=== PATIENT | female | born 1945 | race Caucasian/White ===

== ENCOUNTER 2017-11-15 22:32 | Emergency (ER) | payer MEDICARE ==
[~2017-11-15] VITALS: Ht 162.6 cm; Wt 51.3 kg
[~2017-11-15 22:32] MED LIST: CARBIDOPA-LEVO1 EAC5 PO; LEVAQUIN500 MG PO; RYTARY ER PO; TIZANIDINE HCL4 MG PO; TRAMADOL HCL100 MG PO; ULTRAM50 MG PO; ZANTAC150 MG PO; ZOFRAN ODT4 MG
[2017-11-15] MEDS ORDERED: MORPHINE SULFATE 2 MG/ML SYR IV STA (22:37)
[2017-11-15] MEDS ORDERED: ONDANSETRON HCL INJ 2 MG/ML VIAL IV STA (22:37)
[2017-11-15 23:09] LABS: BASOPHILS # (AUTO) 0.1 (0.0-0.1); BASOPHILS % 0.7 % (0.0-1.0); EOSINOPHILS # (AUTO) 0.1 (0.0-0.4); EOSINOPHILS % 1.3 % (0.0-6.0); HEMATOCRIT 44.6 % (34.2-44.1); HEMOGLOBIN 14.7 g/dL (12.0-16.0); LYMPHOCYTES # (AUTO) 1.8 (1.0-3.2); LYMPHOCYTES % 18.5 % (18.0-39.1); MEAN CORPUSCULAR HEMOGLOBIN 30.2 pg (28-32); MEAN CORPUSCULAR VOLUME 91.6 fL (81-99); MONOCYTES # (AUTO) 0.5 (0.2-0.8); MONOCYTES % 5.7 % (4.4-11.3); NEUTROPHILS % 73.6 % (38.7-80.0); PLATELET COUNT 292 x10e3/uL (140-360); RED BLOOD COUNT 4.87 x10e6/uL (3.6-5.1); RED CELL DISTRIBUTION WIDTH 13.1 % (11.7-14.4)
[2017-11-15 23:26] LABS: ALBUMIN 4.2 g/dL (3.5-5.0); ALBUMIN/GLOBULIN RATIO 1.4 (0.8-2.0); ALKALINE PHOSPHATASE 107 IU/L (40-150); AMYLASE 81 U/L (25-125); ANION GAP 14.9 mmol/L (8-16); BLOOD UREA NITROGEN 21 mg/dL (7-26); BUN/CREATININE RATIO 23 (6-25); CARBON DIOXIDE 25 mmol/L (22-29); CHLORIDE 105 mmol/L (98-107); CREATININE, SERUM 0.93 mg/dL (0.57-1.11); EST GLOMERULAR FILTRATION RATE 60 ML/MIN (60-); GLUCOSE 112 mg/dL (74-118); LIPASE 64 U/L (8-78); POTASSIUM 3.9 mmol/L (3.5-5.1); SODIUM 141 mmol/L (136-145)
[2017-11-15 23:27] LABS: ALANINE AMINOTRANSFERASE < 6 IU/L (0-55)
[2017-11-15] MEDS ORDERED: IOPAMIDOL 370 MG/ML 200 ML INFUS..BTL INJ ONE (23:55)
[2017-11-15] MEDS ORDERED: SODIUM CHLORIDE 0.9% 50ML 50 ML ONE (23:55)
--- NOTE | 2017-11-16 00:48 | Diagnostic Imaging Report ---
EXAM: CT ABDOMEN AND PELVIS with IV CONTRAST DATE: 11/15/2017 10:35 PM Time stamp on Exam: 0023 hours INDICATION: Left-sided abdominal pain COMPARISON: None TECHNIQUE: The abdomen and pelvis were scanned using a multidetector helical scanner. Coronal and sagittal reformations were obtained. Dose modulation, iterative reconstruction, and/or weight based adjustment of the mA/kV was utilized to reduce the radiation dose to as low as reasonably achievable. Routine protocol performed. IV Contrast: 100 cc Isovue 370 Oral Contrast: Water FINDINGS: LOWER THORAX: No consolidations LIVER: No masses BILIARY: The gallbladder is unremarkable. No ductal dilation. SPLEEN: No masses PANCREAS: No masses ADRENALS: No nodules KIDNEYS: Symmetric perfusion. No enhancing masses. No hydronephrosis. GI TRACT: No distention, wall thickening or evidence of obstruction. Small hiatal hernia. Normal appendix. VESSELS: Unremarkable PERITONEUM/RETROPERITONEUM: No free air or fluid LYMPH NODES: No lymphadenopathy REPRODUCTIVE ORGANS: Uterus and ovaries are not visualized. BLADDER: Unremarkable SOFT TISSUES: Unremarkable BONES: No suspicious bone lesions. IMPRESSION: No acute findings in the CT of the abdomen or pelvis. Signed by: Dr. Michelle Neri M.D. on 11/16/2017 12:44 AM
[2017-11-16 01:38] LABS: BACTERIA,URINE FEW /HPF; BILIRUBIN,URINE NEGATIVE (NEGATIVE); CLARITY,URINE CLEAR (CLEAR); COLOR,URINE YELLOW (YELLOW); EPITHELIAL CELLS,URINE FEW /LPF; KETONES,URINE TRACE (NEGATIVE); LEUKOCYTE ESTERASE ,URINE TRACE (NEGATIVE); NITRITE,URINE NEGATIVE (NEGATIVE); PROTEIN,URINE DIPSTICK NEGATIVE (NEGATIVE); RBC,URINE 0-5 /HPF (0-5); URINE UROBILINOGEN 0.2 mg/dL (0.2 - 1)
[2017-11-16 01:48] VITALS: BP 162/101
== END 2017-11-16 02:12 | disposition home or self-care (01) ==
LOC: ER 22:32
DX: R10.32 Left lower quadrant pain (principal); N30.90 Cystitis, unspecified without hematuria; G20 Parkinson's disease; M54.9 Dorsalgia, unspecified; G89.29 Other chronic pain
CPT/HCPCS: 36415; 74177; 80053; 81001; 82150; 83690; 85025; 99284; J2270; J2405; Q9967

== ENCOUNTER → 2018-04-02 | Outpatient (CLI) | payer MEDICARE ==
--- NOTE | 2018-04-02 14:07 | Diagnostic Imaging Report ---
EXAMINATION: Renal ultrasound. CLINICAL HISTORY :Microscopic hematuria COMPARISON: <None available.> TECHNIQUE: Grayscale and color Doppler evaluation of the kidneys and bladder was performed in transverse and longitudinal planes. DISCUSSION: RIGHT KIDNEY: The right kidney measures 9.2 cm in length and shows normal echogenicity. No hydronephrosis, shadowing calculi or solid mass lesions. LEFT KIDNEY: The left kidney measures 9 cm in length and shows normal echogenicity. No hydronephrosis, shadowing calculi or solid mass lesions. BLADDER: Unremarkable. IMPRESSION: Normal renal sonogram Signed by: Dr. Roscoe Bell M.D. on 04/02/2018 2:03 PM
== END ==
LOC: US 12:53
PROVIDERS: ATTEND Urology
DX: R31.29 Other microscopic hematuria (principal); N39.0 Urinary tract infection, site not specified
CPT/HCPCS: 76770

== ENCOUNTER → 2018-06-08 | Outpatient (CLI) | payer MEDICARE ==
--- NOTE | 2018-06-08 17:31 | Diagnostic Imaging Report ---
EXAMINATION: CHEST 2 VIEWS INDICATION: ^[id number] ^1700 ^COUGH COMPARISON: Abdomen and pelvis CT dated 11/16/2017 FINDINGS: AP and lateral views TUBES and LINES: None. LUNGS/PLEURA: The lungs are clear. No pleural effusion or pneumothorax. HEART AND MEDIASTINUM: The cardiomediastinal silhouette is unremarkable. BONES AND SOFT TISSUES: No acute osseous lesion. Soft tissues are unremarkable. UPPER ABDOMEN: No free air under the diaphragm. IMPRESSION: No acute thoracic abnormality. Signed by: Barry Guerra MD on 06/08/2018 5:28 PM
== END ==
LOC: RAD 16:06
PROVIDERS: ATTEND Internal Medicine
DX: R05 Cough (principal)
CPT/HCPCS: 71046

== ENCOUNTER 2019-01-02 19:52 | Emergency (ER) | payer MEDICARE ==
[~2019-01-02] VITALS: Ht 162.6 cm; Wt 51.3 kg
--- OUTSIDE RECORDS SUMMARY | 2019-01-02 19:56 | XMS REPORT ---
Author Author [facility] Address Unknown Phone Unavailable Care Team Providers Care Gag Writer Name Role Phone LEXI BARAJAS Unavailable Unavailable SELENE WOOTEN Unavailable Unavailable Jose Carlos NAM Unavailable Unavailable Payers Payer Name Policy Type Policy Number Effective Date Expiration Date Problems This patient has no known problems. Allergies, Adverse Reactions, Alerts Allergy Name Allergy Type Status Severity Reaction(s) Onset Date Inactive Date Treating Clinician Comments Sulfa (Sulfonamide Antibiotics) DA Active U 2018-03-06 00:00:00 No Known Contrast Allergies DA Active U 2005-01-19 00:00:00 No Known Drug Allergies DA Active U 2005-01-19 00:00:00 No Known Food Allergies DA Active U 2005-01-19 00:00:00 Medications This patient has no known medications. Results Test Description Test Time Test Comments Text Results Atomic Results Result Comments CHEST 2 VIEWS 2018-06-08 17:27:00 [place] [address] Patient Name: MANJU PEARSON MR #: [id number] : 1945 Age/Sex: 72/F Req #: [id number] Adm Physician: Ordered by: ELXI BARAJAS MD Report #: [id number] Location: [facility] Room/Bed: Procedure: [id number] DX/CHEST 2 VIEWS Exam Date: 06/08/18 Exam Time: 1700 REPORT STATUS: Signed EXAMINATION: CHEST 2 VIEWS INDICATION: [id number] 1700 COUGH COMPARISON: Abdomen and pelvis CT dated 11/16/2017 FINDINGS: AP and lateral views TUBES and LINES: None. LUNGS/PLEURA: The lungs are clear. No pleural effusion or pneumothorax. HEART AND MEDIASTINUM: The cardiomediastinal silhouette is unremarkable. BONES AND SOFT TISSUES: No acute osseous lesion. Soft tissues are unremarkable. UPPER ABDOMEN: No free air under the diaphragm. IMPRESSION: No acute thoracic abnormality. Signed by: Barry Guerra MD on 06/08/2018 5:28 PM Dictated By: DILSHAD GUERRA MD 27 Transcribed By: SAVITA on 06/08/181727 COPY TO: LEXI BARAJAS MD RENAL RETROPERITONEAL COMP 2018-04-02 14:02:00 [place] [address] Patient Name: MANJU PEARSON MR #: [id number] : 1945 Age/Sex: 72/F Req #: [id number] Adm Physician: Ordered by: SELENE WOOTEN MD Report #: [id number] Location: Room/Bed: Procedure: [id number] US/US RENAL RETROPERITONEAL COMP Exam Date: 04/02/18 Exam Time: 1337 REPORT STATUS: Signed EXAMINATION: Renal ultrasound. CLINICAL HISTORY :Microscopic hematuria COMPARISON: <None available.> TECHNIQUE: Grayscale and color Doppler evaluation of the kidneys and bladder was performed in transverse and longitudinal planes. DISCUSSION: RIGHT KIDNEY: The right kidney measures 9.2 cm in length and shows normal echogenicity. No hydronephrosis, shadowing calculi or solid mass lesions. LEFT KIDNEY: The left kidney measures 9 cm in length and shows normal echogenicity. No hydronephrosis, shadowing calculi or solid mass lesions. BLADDER: Unremarkable. IMPRESSION: Normal renal sonogram Signed by: Dr. Yuliya Salmeron M.D. on 04/02/2018 2:03 PM Dictated By: YULIYA SALMERON MD 02 Transcribed By: SAVITA on 04/02/181402 COPY TO: SELENE WOOTEN MD CT ABDOMEN/PELVIS W 2017-11-16 00:37:00 [place] [address] Patient Name: MANJU PEARSON MR #: [id number] : 1945 Age/Sex: 71/F Req #: [id number] Adm Physician: Ordered by: ASHLEY NAM MD Report #: [id number] Location: ER Room/Bed: Procedure: [id number] CT/CT ABDOMEN/PELVIS W Exam Date: Exam Time: REPORT STATUS: Signed EXAM: CT ABDOMEN AND PELVIS with IV CONTRAST DATE: 11/15/2017 10:35 PM Time stamp on Exam: 0023 hours INDICATION: Left-sided abdominal pain COMPARISON: None TECHNIQUE: The abdomen and pelvis were scanned using a multidetector helical scanner. Coronal and sagittal reformations were obtained. Dose modulation, iterative reconstruction, and/or weight based adjustment of the mA/kV was utilized to reduce the radiation dose to as low as reasonably achievable. Routine protocol performed. IV Contrast: 100 cc Isovue 370 Oral Contrast: Water FINDINGS: LOWER THORAX: No consolidations LIVER: No masses BILIARY: The gallbladder is unremarkable. No ductal dilation. SPLEEN: No masses PANCREAS: No masses ADRENALS: No nodules KIDNEYS: Symmetric perfusion. No enhancing masses. No hydronephrosis. GI T RACT: No distention, wall thickening or evidence of obstruction. Small hiatal hernia. Normal appendix. VESSELS: Unremarkable PERITONEUM/RETROPERITONEUM: No free air or fluid LYMPH NODES: No lym phadenopathy REPRODUCTIVE ORGANS: Uterus and ovaries are not visualized. BLADDER: Unremarkable SOFT TISSUES: Unremarkable BONES: No suspicious bone lesions. IMPRESSION: No acute findings in the CT of the abdomen or pelvis. Signed by: Dr. Abby Neri M.D. on 11/16/2017 12:44 AM Dictated By: ABBY NERI MD Transcribed By: SAVITA on 11/16/1743 COPY TO: ASHLEY NAM MD
--- NOTE | 2019-01-02 20:22 | NUR ---
bladder scan performed: 122, 120, 135
[2019-01-02] MEDS ORDERED: ONDANSETRON HCL INJ 2MG/ML 2ML 2 MG/ML VIAL IV STA (20:33)
[2019-01-02] MEDS ORDERED: DIATRIZOATE MEGL/DIATRIZOA SOD 30 ML BTL PO ONE (20:39)
[2019-01-02] MEDS ORDERED: SODIUM CHLORIDE 0.9% 1000ML 1,000 ML IV ONE (20:45)
[2019-01-02] MEDS ORDERED: HYDROMORPHONE 1MG/1ML INJ IV ONE (20:45)
[2019-01-02 20:51] LABS: BASOPHILS # (AUTO) 0.1 (0.0-0.1); BASOPHILS % 0.9 % (0.0-1.0); EOSINOPHILS # (AUTO) 0.1 (0.0-0.4); EOSINOPHILS % 1.9 % (0.0-6.0); HEMATOCRIT 40.9 % (34.2-44.1); HEMOGLOBIN 13.7 g/dL (12.0-16.0); LYMPHOCYTES % 14.8 % (18.0-39.1); MEAN CORPUSCULAR HEMOGLOBIN 30.5 pg (28-32); MEAN CORPUSCULAR HGB CONC 33.5 g/dL (31-35); MEAN CORPUSCULAR VOLUME 91.1 fL (81-99); MONOCYTES # (AUTO) 0.5 (0.2-0.8); MONOCYTES % 6.4 % (4.4-11.3); NEUTROPHILS # (AUTO) 5.3 (2.1-6.9); NEUTROPHILS % 75.6 % (38.7-80.0); PLATELET COUNT 221 x10e3/uL (140-360); RED BLOOD COUNT 4.49 x10e6/uL (3.6-5.1); RED CELL DISTRIBUTION WIDTH 12.5 % (11.7-14.4)
[2019-01-02 20:58] LABS: BILIRUBIN,URINE NEGATIVE (NEGATIVE); CLARITY,URINE CLEAR (CLEAR); COLOR,URINE YELLOW (YELLOW); KETONES,URINE TRACE (NEGATIVE); LEUKOCYTE ESTERASE ,URINE NEGATIVE (NEGATIVE); NITRITE,URINE NEGATIVE (NEGATIVE); PROTEIN,URINE DIPSTICK NEGATIVE (NEGATIVE); URINE UROBILINOGEN 0.2 mg/dL (0.2 - 1)
[2019-01-02 21:11] LABS: ALBUMIN 3.8 g/dL (3.5-5.0); ALBUMIN/GLOBULIN RATIO 1.5 (0.8-2.0); ALKALINE PHOSPHATASE 79 IU/L (40-150); ANION GAP 13.6 mmol/L (8-16); BLOOD UREA NITROGEN 21 mg/dL (7-26); BUN/CREATININE RATIO 23 (6-25); CALCIUM 9.6 mg/dL (8.4-10.2); CARBON DIOXIDE 23 mmol/L (22-29); CHLORIDE 106 mmol/L (98-107); CREATININE, SERUM 0.91 mg/dL (0.57-1.11); EST GLOMERULAR FILTRATION RATE > 60 ML/MIN (60-); GLUCOSE 109 mg/dL (74-118); POTASSIUM 3.6 mmol/L (3.5-5.1); SODIUM 139 mmol/L (136-145)
[2019-01-02 21:12] LABS: BACTERIA,URINE RARE /HPF; EPITHELIAL CELLS,URINE FEW /LPF; RBC,URINE 0-5 /HPF (0-5); WBC,URINE (MAN) 0-5 /HPF (0-5)
[2019-01-02 21:14] LABS: ALANINE AMINOTRANSFERASE < 6 IU/L (0-55)
[2019-01-02 21:37] LABS: AMYLASE 44 U/L (25-125); LIPASE 11 U/L (8-78)
[2019-01-02] MEDS ORDERED: IOPAMIDOL 370 MG/ML 200 ML INFUS..BTL INJ ONE (21:53)
[2019-01-02] MEDS ORDERED: SODIUM CHLORIDE 0.9% 50ML 50 ML ONE (21:53)
--- NOTE | 2019-01-02 22:51 | Diagnostic Imaging Report ---
EXAM: CT Abdomen and Pelvis WITH contrast INDICATION: ^llq pain ^Y COMPARISON: CT dated 11/16/2017 TECHNIQUE: Abdomen and pelvis were scanned utilizing a multidetector helical scanner from the lung base to the pubic symphysis after administration of IV contrast. Coronal and sagittal reformations were obtained. Dose modulation, iterative reconstruction, and/or weight based adjustment of the mA/kV was utilized to reduce the radiation dose to as low as reasonably achievable. Routine protocol was performed. Scan was performed when during portal venous phase. IV CONTRAST: 100 mL of Isovue-370 ORAL CONTRAST: Gastroview COMPLICATIONS: None RADIATION DOSE: Total DLP: 273 mGy*cm Estimated effective dose: (DLP x 0.015 x size factor) mSv CTDIvol has been reviewed. It is below the limits set by the Radiation Protocol Committee (RPC). FINDINGS: LINES and TUBES: None. LOWER THORAX: Dependent atelectasis. HEPATOBILIARY: No focal hepatic lesions. No biliary ductal dilation. GALLBLADDER: No radio-opaque stones or sludge. No wall thickening. SPLEEN: No splenomegaly. PANCREAS: No focal masses or ductal dilatation. ADRENALS: No adrenal nodules KIDNEYS/URETERS: Kidneys enhance symmetrically. No hydronephrosis. No cystic or solid mass lesions. No stones. GI TRACT: No abnormal distention, wall thickening, or evidence of bowel obstruction. Appendix is normal. PELVIC ORGANS/BLADDER: Hysterectomy. Bladder is unremarkable. LYMPH NODES: No lymphadenopathy. VESSELS: Unremarkable. PERITONEUM / RETROPERITONEUM: No free air or fluid. BONES: Unremarkable. SOFT TISSUES: Unremarkable. IMPRESSION: 1. No acute inflammatory process in the abdomen/pelvis to explain patient's symptoms. Signed by: Dr. David Moran MD on 01/02/2019 10:48 PM
== END 2019-01-02 23:16 | disposition home or self-care (01) ==
LOC: ER 19:52
DX: R10.32 Left lower quadrant pain (principal); Z87.442 Personal history of urinary calculi; Z87.440 Personal history of urinary (tract) infections; M19.90 Unspecified osteoarthritis, unspecified site; G20 Parkinson's disease; Z82.49 Family history of ischemic heart disease and other diseases of the circulatory system
CPT/HCPCS: 36415; 74177; 80053; 81001; 82150; 83690; 85025; 99284; J1170; J2405; J7030; Q9967

== ENCOUNTER 2019-03-06 02:13 | Observation (INO) | payer MEDICARE ==
[~2019-03-06] VITALS: Ht 162.6 cm; Wt 50.5 kg
[2019-03-06] MEDS ORDERED: SODIUM CHLORIDE 0.9% 500ML 500 ML IV ONE (02:45)
[2019-03-06 03:06] LABS: BASOPHILS # (AUTO) 0.1 (0.0-0.1); BASOPHILS % 0.7 % (0.0-1.0); EOSINOPHILS # (AUTO) 0.3 (0.0-0.4); HEMATOCRIT 39.7 % (34.2-44.1); HEMOGLOBIN 13.2 g/dL (12.0-16.0); LYMPHOCYTES # (AUTO) 1.4 (1.0-3.2); LYMPHOCYTES % 20.1 % (18.0-39.1); MEAN CORPUSCULAR HEMOGLOBIN 29.9 pg (28-32); MEAN CORPUSCULAR HGB CONC 33.2 g/dL (31-35); MEAN CORPUSCULAR VOLUME 89.8 fL (81-99); MONOCYTES # (AUTO) 0.6 (0.2-0.8); MONOCYTES % 7.8 % (4.4-11.3); NEUTROPHILS # (AUTO) 4.7 (2.1-6.9); NEUTROPHILS % 66.8 % (38.7-80.0); PLATELET COUNT 229 x10e3/uL (140-360); RED BLOOD COUNT 4.42 x10e6/uL (3.6-5.1); RED CELL DISTRIBUTION WIDTH 12.8 % (11.7-14.4)
[2019-03-06 03:30] LABS: BILIRUBIN,URINE NEGATIVE (NEGATIVE); CLARITY,URINE SL CLOUDY (CLEAR); COLOR,URINE YELLOW (YELLOW); KETONES,URINE NEGATIVE (NEGATIVE); LEUKOCYTE ESTERASE ,URINE NEGATIVE (NEGATIVE); NITRITE,URINE NEGATIVE (NEGATIVE); PROTEIN,URINE DIPSTICK NEGATIVE (NEGATIVE); URINE UROBILINOGEN 0.2 mg/dL (0.2 - 1)
[2019-03-06 03:33] LABS: INR 0.97; PROTHROMBIN TIME 13.4 seconds (11.9-14.5)
[2019-03-06 03:34] LABS: PARTIAL THROMBOPLASTIN TIME 25.3 seconds (23.8-35.5)
[2019-03-06 03:37] LABS: ALANINE AMINOTRANSFERASE < 6 IU/L (0-55); ALBUMIN 3.5 g/dL (3.5-5.0); ALBUMIN/GLOBULIN RATIO 1.6 (0.8-2.0); ALKALINE PHOSPHATASE 80 IU/L (40-150); ANION GAP 12.7 mmol/L (8-16); BLOOD UREA NITROGEN 27 mg/dL (7-26); BUN/CREATININE RATIO 29 (6-25); CALCIUM 9.1 mg/dL (8.4-10.2); CARBON DIOXIDE 23 mmol/L (22-29); CHLORIDE 108 mmol/L (98-107); CREATINE KINASE 66 IU/L (29-168); CREATININE, SERUM 0.94 mg/dL (0.57-1.11); EST GLOMERULAR FILTRATION RATE 59 ML/MIN (60-); GLUCOSE 99 mg/dL (74-118); POTASSIUM 3.7 mmol/L (3.5-5.1); SODIUM 140 mmol/L (136-145)
--- NOTE | 2019-03-06 03:52 | Diagnostic Imaging Report ---
EXAMINATION: Head CT without contrast. HISTORY:Syncope, fall. COMPARISON:Report of CT brain from 05/25/2012, prior images not available for comparison at the time of interpretation. TECHNIQUE: Multidetector axial images were obtained from the foramen magnum to the vertex without contrast. The images were reconstructed using brain and bone algorithms. Thin section brain images were reformatted into coronal and sagittal planes. Dose modulation, iterative reconstruction, and/or weight based adjustment of the mA/kV was utilized to reduce the radiation dose to as low as reasonably achievable. Intravenous contrast: None IMAGE QUALITY: Suboptimal evaluation particularly of the skull base and posterior fossa structures due to streak artifacts. FINDINGS: Skull/scalp: No lytic or blastic. lesions. No surgical changes. Parenchyma: Nonspecific few, scattered supratentorial white matter hypodensity are likely related to small vessel ischemic changes. No acute hemorrhage, mass or acute major vascular territorial infarct. Arteries: No density suggestive of thrombosis. Dural sinuses: No abnormal density suggestive of thrombosis. Ventricles: No hydrocephalus or displacement. Extra-axial spaces: No abnormal density. Brain volume: Normal for age. Craniocervical junction: No mass, Chiari malformation, or basilar invagination. Sella: No mass. Paranasal/mastoid sinuses: Under pneumatization and partial sclerosis of left mastoid air cells possibly related to chronic inflammatory process. Mild mucosal thickening in bilateral ethmoid sinuses. IMPRESSION: No acute intracranial abnormality. Mild supratentorial white matter microvascular ischemic changes. Signed by: Dr. Ro Munoz M.D. on 03/06/2019 3:48 AM
[2019-03-06 03:57] LABS: B-TYPE NATRIURETIC PEPTIDE2 149.4 pg/mL (0-100)
--- NOTE | 2019-03-06 03:57 | Diagnostic Imaging Report ---
History: Syncope, fall. Comparison studies: None Technique: Axial images were obtained through the cervical region.. Coronal and sagittal images reconstructed from the axial data. Dose modulation, iterative reconstruction, and/or weight based adjustment of the mA/kV was utilized to reduce the radiation dose to as low as reasonably achievable. Intravenous contrast: None Findings: Fractures: None. Soft tissue injuries: None. Atlantoaxial articulation: Intact. Alignment: Loss of normal cervical lordosis is either positional or due to muscle spasm. Mild levoscoliosis of the cervical spine. Cervicomedullary junction: No abnormalities. The foramen magnum is patent. Soft tissues: No abnormalities. Vertebrae: No fractures, infection or neoplasm. Degenerative changes: C2-C3: Mild right foraminal stenosis due to facet and uncovertebral arthrosis. C3-C4: Severe right foraminal stenosis due to facet and uncovertebral arthrosis. C4-C5: Severe right foraminal stenosis due to facet and uncovertebral arthrosis. C5-C6: Mild bilateral foraminal stenosis due to facet and uncovertebral arthrosis. C6-C7: Severe right and moderate left foraminal stenosis due to facet and uncovertebral arthrosis. Incidental finding: Partial opacification of right mastoid air cells. IMPRESSION: 1. No acute cervical spine fracture or dislocation. Loss of normal cervical lordosis is either positional or due to muscle spasm. 2. Ligament, spinal cord and or vascular abnormalities cannot be excluded on the basis of this examination. 3. Cervical spondylosis as detailed above. Signed by: Dr. Ro Munoz M.D. on 03/06/2019 3:54 AM
[2019-03-06] MEDS ORDERED: SODIUM CHLORIDE 0.9% 1000ML 1,000 ML IV ONE (04:00)
[2019-03-06] MEDS ORDERED: ONDANSETRON HCL INJ 2MG/ML 2ML 2 MG/ML VIAL IV PRN (04:00)
--- NOTE | 2019-03-06 04:04 | Diagnostic Imaging Report ---
EXAMINATION: CHEST SINGLE (PORTABLE) INDICATION: ^syncope ^[id number] ^0236 COMPARISON: 06/08/2018 FINDINGS: AP view TUBES and LINES: None. LUNGS: Patient's chin obscures lung apices. Lungs are well inflated. There is no evidence of pneumonia or pulmonary edema. PLEURA: No significant pleural effusion or pneumothorax. HEART AND MEDIASTINUM: The cardiomediastinal silhouette is unremarkable. BONES AND SOFT TISSUES: No acute osseous lesion. Soft tissues are unremarkable. UPPER ABDOMEN: No free air under the diaphragm. IMPRESSION: No acute thoracic abnormality. Signed by: Dr. David Moran MD on 03/06/2019 4:01 AM
--- NOTE | 2019-03-06 04:05 | Diagnostic Imaging Report ---
PELVIS AP 1-2 VIEWS - 1 view HISTORY: Pain COMPARISON: None available. FINDINGS: See impression. IMPRESSION: Limited by slight rotation. No definite evidence of acute displaced fracture or dislocation. Signed by: Dr. David Moran MD on 03/06/2019 4:02 AM
[2019-03-06 04:09] LABS: AMORPHOUS SEDIMENT,URINE MANY (FEW); BACTERIA,URINE MODERATE /HPF; EPITHELIAL CELLS,URINE FEW /LPF; RBC,URINE 0-5 /HPF (0-5); WBC,URINE (MAN) 0-5 /HPF (0-5)
[2019-03-06] MEDS: ACETAMINOPHEN/CODEINE 300MG - 30MG TAB PO PRN ×2 (05:30→20:31)
[2019-03-06] MEDS ORDERED: DICYCLOMINE HCL 10 MG CAP PO ONE (05:30)
[2019-03-06 07:08] LABS: CREATINE KINASE 45 IU/L (29-168)
--- NOTE | 2019-03-06 07:27 | NUR ---
report given to benedict walker
[2019-03-06 08:00] VITALS: BP 144/89
--- NOTE | 2019-03-06 08:00 | NUR ---
Rec'd patient to Room 187. Sacral stage 2 noted; VSS, no acute distress on room air. Purewick placed. Concerns voiced by patient and spouse regarding the billing for the admission. Requesting to discharge home. machine umbrella tipper and Dry Food Products Mixer to bedside; Ning Osuna aware. Patient and spouse agreeable to stay and speak with Ning Osuna when she rounds after conversation with machine umbrella tipper and Dry Food [employer] Mixer.
--- NOTE | 2019-03-06 08:52 | NUR ---
CALLED INTO ROOM, PT AND UPSET BECAUSE OF OBS STATUS, THEIR FRIEND WAS TOLD THEY HAD TO PAY $20K FOR THEIR OBS STAY AND THEY STATE THEY CANNOT AFFORD THAT. LOOKED AT INSURANCE THEY HAVE MEDICARE A AND B AND A SECONDARY AARP. THEY SHOULD BE COVERED. ALSO GAVE A SENIOR RESOURCE PACKET OF INFORMATION FOR ASSISTANCE IN THE COMMUNITY, ALSO EDUCATED THAT EVERY POLICY IS DIFFERENT AND I CANNOT EXPLAIN WHY THEIR FRIEND HAD TO PAY SO MUCH BUT THAT TYPICALLY A SECONDAY WILL PHARMACY TECH CO PAY AND THE PART B WILL PHARMACY TECH A PORTION OF THE OBS PORTION. NURSE ADVISED CALLED JEWEL GRINDER WHOM IS ON WAY AND WILL REVIEW CASE TO DETERMINE IF DISCHARGE CAN BE COMPLETED.
[2019-03-06 09:11] VITALS: BP 144/89
[2019-03-06 09:16] VITALS: BP 144/89
[2019-03-06] MEDS ORDERED: ACETAMINOPHEN 325 MG TAB PO PRN (09:30)
[2019-03-06] MEDS ORDERED: HYDRALAZINE HCL 20 MG/ML VIAL IV PRN (09:30)
--- NOTE | 2019-03-06 09:53 | NUR ---
Consult called to Dr Carlos, neurology, per Ning Osuna order. Left message. Awaiting callback.
[2019-03-06] MEDS: CEFTRIAXONE SOD 1 GM/NS 50 ML 50 ML IV SCH (09:56)
[2019-03-06 10:02] LABS: CHOL/HDL RATIO 3.4 (3.0-3.6)
[2019-03-06 12:39] LABS: CREATINE KINASE MB 2.2 ng/mL (0-5.0)
[2019-03-06 14:00] VITALS: BP 102/87
[2019-03-06] MEDS: FAMOTIDINE 20 MG TAB PO SCH (17:12)
--- NOTE | 2019-03-06 17:22 | NUR ---
Patient ambulated to restroom with a walker.
[2019-03-06 18:13] LABS: CREATINE KINASE 223 IU/L (29-168)
--- NOTE | 2019-03-06 18:37 | Consultation ---
DATE OF CONSULTATION: Pulmonary Critical Care Consultation CHIEF COMPLAINT: Syncope. HISTORY OF PRESENT ILLNESS: The patient is a 73-year-old woman. She has a history of Parkinson disease. She is having her medications adjusted by Dr. Landaverde of Neurology as an outpatient. She denies any prior cardiac history. When she was walking to the kitchen, she passed out and was difficult to arouse for about 10 minutes. When she came to, she was not postictal. There was no reported grand mal seizure activity. The patient denied any chest pain or headache. PAST SURGICAL HISTORY: 1. Status post hysterectomy. 2. Status post back surgery. PAST MEDICAL HISTORY: Parkinson disease. FAMILY HISTORY: Diabetes and cancer. SOCIAL HISTORY: The patient is not an active smoker or drinker. ALLERGIES: THERE ARE NO KNOWN DRUG ALLERGIES. REVIEW OF SYSTEMS: There is no fever. She has no headache. She is not having any neck pain. There is no sore throat. She does not have any chest pain. She does not complain of trouble breathing or cough. She has no abdominal pain. She has no nausea or vomiting. She has no leg edema. PHYSICAL EXAMINATION: VITAL SIGNS: The patient is afebrile. The blood pressure is 144/90 and the pulse is 63. The saturation is 95%. HEENT: Shows no facial swelling or erythema. CARDIAC: Reveals a regular rate and rhythm with normal S1 and S2. There are no murmurs or rubs. LUNGS: Auscultation of lungs reveals rhonchorous breath sounds bilaterally. There is no wheezing. ABDOMEN: Soft and nontender. There is no rebound or guarding. EXTREMITIES: Shows no leg edema or calf tenderness. There is no cyanosis or clubbing. SKIN: Shows no rashes. NEUROLOGICAL: Shows tremor consistent with Parkinson disease and some increased rigidity. LABORATORY DATA: CBC is within normal limits. Glucose is normal. Troponin I is normal. The BUN to creatinine ratio is normal and electrolytes were normal. RADIOGRAPHIC DATA: CT scan of the brain shows no acute findings. CT scan of the neck shows no acute fracture. There is some cervical spondylosis. Chest x-ray shows no acute thoracic abnormality. IMPRESSION: 1. Syncope of unclear cause. 2. Parkinson disease. PLAN: 1. Check echocardiogram and carotid duplex. 2. Orthostatic vital signs. 3. Neurology consultation to review Parkinson's medications. MD SOFI Wood/DIANE /[id number]
[2019-03-06 20:00] VITALS: BP 146/85
[2019-03-06 23:37] VITALS: BP 160/82
[2019-03-07] MEDS: ACETAMINOPHEN/CODEINE 300MG - 30MG TAB PO PRN (02:45)
[2019-03-07 03:46] VITALS: BP 156/86
[2019-03-07 05:13] LABS: BASOPHILS % 0.4 % (0.0-1.0); EOSINOPHILS # (AUTO) 0.1 (0.0-0.4); EOSINOPHILS % 1.3 % (0.0-6.0); HEMATOCRIT 38.5 % (34.2-44.1); HEMOGLOBIN 12.4 g/dL (12.0-16.0); LYMPHOCYTES # (AUTO) 1.3 (1.0-3.2); LYMPHOCYTES % 13.8 % (18.0-39.1); MEAN CORPUSCULAR HEMOGLOBIN 29.5 pg (28-32); MEAN CORPUSCULAR HGB CONC 32.2 g/dL (31-35); MEAN CORPUSCULAR VOLUME 91.4 fL (81-99); MONOCYTES # (AUTO) 0.6 (0.2-0.8); MONOCYTES % 6.7 % (4.4-11.3); NEUTROPHILS # (AUTO) 7.2 (2.1-6.9); NEUTROPHILS % 77.3 % (38.7-80.0); PLATELET COUNT 204 x10e3/uL (140-360); RED BLOOD COUNT 4.21 x10e6/uL (3.6-5.1); RED CELL DISTRIBUTION WIDTH 12.9 % (11.7-14.4)
[2019-03-07 05:40] LABS: ALANINE AMINOTRANSFERASE < 6 IU/L (0-55); ALBUMIN 3.3 g/dL (3.5-5.0); ALBUMIN/GLOBULIN RATIO 1.7 (0.8-2.0); ALKALINE PHOSPHATASE 71 IU/L (40-150); ANION GAP 10.6 mmol/L (8-16); BLOOD UREA NITROGEN 19 mg/dL (7-26); BUN/CREATININE RATIO 24 (6-25); CALCIUM 8.6 mg/dL (8.4-10.2); CARBON DIOXIDE 24 mmol/L (22-29); CHLORIDE 110 mmol/L (98-107); EST GLOMERULAR FILTRATION RATE > 60 ML/MIN (60-); GLUCOSE 98 mg/dL (74-118); POTASSIUM 3.6 mmol/L (3.5-5.1); SODIUM 141 mmol/L (136-145)
[2019-03-07] MEDS: FAMOTIDINE 20 MG TAB PO SCH (07:30)
[2019-03-07 07:39] VITALS: BP 146/80
[2019-03-07 08:15] VITALS: BP 146/80
[2019-03-07] MEDS ORDERED: RYTARY PO SCH ×2 (09:00→13:00)
[2019-03-07] MEDS: CEFTRIAXONE SOD 1 GM/NS 50 ML 50 ML IV SCH (09:00)
[2019-03-07] MEDS ORDERED: DICYCLOMINE HCL20 MG PO (09:31)
[2019-03-07 11:41] VITALS: BP 101/63
[2019-03-07] MEDS ORDERED: HOME MEDICATION--PATIENTS OWN PO SCH (12:00)
--- NOTE | 2019-03-07 12:10 | NUR ---
Visit made by the Spiritual Care Department Pastoral Visitor, Jes Díaz. Pt sleeping soundly and no family present. Pastoral Visitor left a card describing availability of electronic imaging system operator and instructions on how to contact a electronic imaging system operator. ROSEMARY BARCENAS Supervisor [employer]ing And [employer]pering Spiritual Care Department O: [phone] Pager: [phone] ([phone] number calling from)
[2019-03-07] MEDS ORDERED: CEFDINIR300 MG PO (12:49)
--- NOTE | 2019-03-07 12:52 | NUR ---
Spoke with JOHNATHON Barclay. Received order to set up home health for PT. CM spoke with pt and her at bedside. Pt stated that she previously had home health, but does not want it at this time. at bedside agrees and declines need at this time.
--- NOTE | 2019-03-07 12:56 | Progress Note ---
DATE: SUBJECTIVE: The patient feels better. She is not complaining of any headache or dyspnea. She has no further syncope. She and her attribute her lack of responsiveness to change in her Parkinson's medicines temporarily while she had a colonoscopy late last week. PHYSICAL EXAMINATION: VITAL SIGNS: Stable. CARDIAC: Reveals regular rate and rhythm with normal S1, S2. There are no murmurs or rubs heard. LUNGS: Auscultation of lungs shows clear breath sounds bilaterally. There is no wheezing. ABDOMEN: Soft, nontender. There is no rebound or guarding. EXTREMITIES: Show no leg edema or calf tenderness. IMPRESSION: 1. Syncope. 2. Parkinson disease. 3. Urinary tract infection with alpha hemolytic strep. PLAN: 1. The patient will be discharged home. 2. She will resume her home medications. 3. She will receive antibiotics for the urinary tract infection. Dominik Rushing MD [facility]/DIANE /[id number]
--- NOTE | 2019-03-07 17:47 | Discharge Summary ---
ADMISSION DIAGNOSES: Syncope, frequent falls, Parkinson disease, urinary tract infection present on admission. DISCHARGE DIAGNOSES: Syncope, frequent falls, Parkinson disease, urinary tract infection present on admission. HISTORY: Parkinson disease, osteoarthritis. SURGICAL HISTORY: Hysterectomy, back surgery, tonsillectomy and colporrhaphy. FAMILY HISTORY: The patient's great grandparents had diabetes. The patient's grandpa had cancer. The patient's mom had a stroke. SOCIAL HISTORY: Noncontributory. HOSPITAL COURSE: A 73-year-old female admitted with a syncopal episode last night while being moved from the restroom to the bed. Once in bed, she became unresponsive for about 10 minutes. She did not lose a pulse and no seizure activity was noted. She also admits to frequent falls. On admission, CT of the brain was negative. The patient refused an MRI of the brain. An echo showed an EF of about 60%. TSH is within normal limits as well as the lipid panel. PT eval showed that the patient was minimal assistance with a rolling walker and gait belt. She had abducted gait and stooped posture. The patient's blood culture was negative, but urine culture came back positive for strep species, gamma hemolytic. Per nursing staff, the patient is very unsteady, so home health was suggested and ordered but they refused. Physical therapy at home as they said it is a waste of time and she does not have time for that. Due to her frequent falls, a pelvic x-ray and a CT of the C-spine were done which were both negative for fractures. Carotid Doppler was done, but not read prior to discharge as the patient and family are very eager to leave. They are very upset and worried that the hospital stay will cost them too much, so they want to go as soon as possible. They are not listening to the rationale of why they need to stay a little bit longer so per Dr. Rushing's recommendation, the patient was discharged home with a prescription for Omnicef for the UTI. The patient and understand discharge instructions and agreed to plan. They will follow up with primary care in 1 to 2 days and patient will need constant care as she is a fall risk. Vital signs stable . The patient is afebrile. Dictated by Ning Osuna NP MD CHEYENNE Posada/STEPHANIL /[id number]
== END 2019-03-07 13:10 | disposition home or self-care (01) ==
LOC: ER 02:13 → ERHOLD 03:54 → IMCU 08:29
PROVIDERS: ADMIT Internal Medicine; ATTEND Internal Medicine
DX: G20 Parkinson's disease (principal); Z91.81 History of falling; N39.0 Urinary tract infection, site not specified; B95.4 Other streptococcus as the cause of diseases classified elsewhere; R51 Headache; M19.90 Unspecified osteoarthritis, unspecified site
CPT/HCPCS: 36415 ×2; 70450; 71045; 72125; 72170; 80053 ×2; 80061; 81001; 82550; 82553; 83036; 83605; 83735 ×2; 83880; 84443; 84484; 85025 ×2; 85610; 85730; 87040; 87086; 87186; 93005; 93306; 93880; 97116; 97530; 99284; G0378 ×2; J0696 ×2; J2405; J7030; J7040

== ENCOUNTER 2019-08-04 01:19 | Observation (INO) | payer MEDICARE, OTHER ==
[~2019-08-04] VITALS: Ht 162.6 cm; Wt 46.3 kg
[~2019-08-04 01:19] MED LIST changes: +CEFDINIR300 MG PO; +DICYCLOMINE HCL20 MG PO
--- OUTSIDE RECORDS SUMMARY | 2019-08-04 01:24 | XMS REPORT ---
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
--- OUTSIDE RECORDS SUMMARY | 2019-08-04 01:24 | XMS REPORT ---
Author Author Candice Taylor Organization [employer] Address Unknown Phone Unavailable Care Team Providers Care Orchard Pruner Name Role Phone Atiya Taylor CP Unavailable [...] Instructions Start Date End Date Status Dosage Diflucan NDC [id number] 150 MG Orally every 24 hrs Feb 27 8 Mar 09, 2018 Active 1 tablet Cipro NDC [id number] 250 MG Orally every 12 hrs Feb 27 8 Mar 02, 2018 Active 1 tablet Results No Known Results Summary Purpose [employer] Submission
--- OUTSIDE RECORDS SUMMARY | 2019-08-04 01:24 | XMS REPORT ---
Author Candice Humphries Organization [employer] Address Unknown Phone Unavailable Care Team Providers Care Aeronautical Design Engineer Name Role Phone Facundo Tom CP Unavailable Allergies, Adverse Reactions, Alerts Substance Reaction Event Type N.K.D.A. Info Not Available Non Drug Allergy Problems Problem Type Condition Code Onset Dates Condition Statu s Assessment Parkinson disease G20 Active Problem HTN (hypertension), benign I10 A ctive Problem Parkinson disease G20 Active Problem Neuropathy involving both lower extremities G57.93 Active Assessment Dysuria R30.0 Active Problem Underweight R63.6 Active Problem Constipation, unspecified constipation type K59.00 Active Medications Medication Code System Code Instructions Start Date End Date Status Dosage Midodrine HCl [facility] 65438765078 5 MG Orally daily Acti ve 1 tablet 1 q am; 2 tabs q noon; 1 tab q pm Rytary [facility] 04794515032 48.75-195 MG Orally four times a day (qid) Active 2 capsule Sulfamethoxazole-Trimethoprim ND 12625244061 800-160 MG Orally Twice a day Feb 16, 2018 Feb 23, 2018 Active 1 tablet Tizanidine HCl ND 40344210842 4 MG Orally every 8 hrs Active 1 tablet as needed Vital Signs Date/Time: Feb 16, 2018 BMI 18.88 Index Weight 110 lbs Height 64 in Cardiac Monitoring Heart Rate 87 /min Blood Pressure Diastolic 70 mm Hg Blood Pressure Systolic 110 mm Hg Results Name Result Date Reference Range Unit Abnormali ty Flag URINE AUTO W/O SCOPE ----Spec [place] 1.020 20180221 ----Turbidity cloudy 20180221 ----Glucose neg 20180221 ----Ketones neg 20180221 ----Blood trace 20180221 ----Bili small+ 20180221 ----Color yellow 20180221 ----pH 6.0 20180221 ----Leuk Est neg 20180221 ----Nitrite neg 20180221 ----Urobilinogen 0.2 20180221 ----Protein 30+ 20180221 Urine Culture, Routine ----Result 1 Comment [id number] ----Urine Culture, Routine Final report [id number] Summary Purpose [employer] Submission
--- OUTSIDE RECORDS SUMMARY | 2019-08-04 01:24 | XMS REPORT | Summary of Care ---
Author Author [facility] Address Unknown Phone Unavailable Care Team Providers Care Buckle Strap Puncher Name Role Phone Haydee Landaverde PCP Encounter HQ Encntr_alias(FIN) [id number] Date(s): 01/25/18 - 01/25/[address] [id number] [phone] Attending Physician: Judith Woodall MD Vital Signs No data available for this section Problem List No data available for this section Allergies, Adverse Reactions, Alerts No Known Medication Allergies Medications No data available for this section Results No data available for this section Immunizations No data available for this section Procedures No data available for this section Social History No data available for this section Assessment and Plan No data available for this section
--- OUTSIDE RECORDS SUMMARY | 2019-08-04 01:24 | XMS REPORT ---
Author Author Candice Tom Organization [employer] Address Unknown Phone Unavailable Care Team Providers Care Seasonal Recruiter Name Role Phone Facundo Tom CP Unavailable Allergies No Known Allergies Problems Problem Type Condition Code Onset Dates Condition Statu s Problem HTN (hypertension), benign I10 A ctive Problem Parkinson disease G20 Active Problem Neuropathy involving both lower extremities G57.93 Active Problem Underweight R63.6 Active Problem Constipation, unspecified constipation type K59.00 Active Medications Medication Code System Code Instructions Start Date End Date Status Dosage Macrobid [facility] 80611043116 100 MG Orally every 12 hrs Mar 02, 8 Mar 09, 2018 Active 1 capsule with food Results No Known Results Summary Purpose [employer] Submission
--- OUTSIDE RECORDS SUMMARY | 2019-08-04 01:24 | XMS REPORT | Continuity of Care Document ---
Author Author [facility] [place] [employer] Address Unknown Phone Unavailable Care Team Providers Care Material Requirements Planning Manager Name Role Phone [employer] Unavailable Un available Problems Problem Status Onset Date Classification Date Reported Comments Source Parkinson's disease 12/31/2017 07/14/2018 [facility] G20 Active 1 [facility] Parkinson disease Active Problem 05/06/2018 [facility] Underweight Active Problem 05/06/2018 [facility] HTN (hypertension), benign Act nika Problem [facility] Constipation, unspecified constipation type Active Problem 05/06/2018 [facility] Neuropathy involving both lower extremities Active Problem 05/06/2018 [facility] Sacral back pain Active Diagnosis 06/20/2017 [facility] Pain of left leg Active Diagnosis 06/28/2017 [facility] Pain in right leg Active Diagnosis 06/20/2017 [facility] Encounter to discuss test results Active Diagnosis 0 08/28/2017 [facility] At risk for falling Active Diagnosis 08/28/2017 [facility] Breast cancer screening Active Diagnosis 08/28/2017 [facility] Idiopathic hypotension Active Diagnosis 11/14/2017 [facility] Dysuria Active Diagnosis 04/09/2018 [facility] Urinary tract infection without hematuri a, site unspecified Active Diag nosis 04/09/2018 [facility] Pain of left lower extremity A ctive Diagnosis 0 12/01/2017 [facility] Fever, unspecified fever cause Active Diagnosis 0 12/01/2017 [facility] Pain of left hip joint Active Diagnosis 12/01/2017 [facility] Syncope and collapse Active Diagnosis 06/22/2016 [facility] Weight loss Active Diagnosis 06/22/2016 [facility] BMI less than 19,adult Active Diagnosis 06/19/2016 [facility] Skin pallor Active Diagnosis 06/19/2016 [facility] Breast cancer screening Active Diagnosis 06/19/2016 [facility] Weakness of both lower extremities Active Diagnosis 0 06/19/2016 [facility] Hypotension, unspecified hypotension type Active Diagnosis 07/13/2016 [facility] Cataract of both eyes, unspecified cataract type Active Diagnosis 07/13/2016 [facility] Medications Medication Details Route Status Patient Instructions Ordering Provider Order Date Source Tamiflu 1 capsule Orally Active 75 mg Orally once a day Tyrell White 05/05/2018 [facility] Phenazopyridine HCl 2 tablets after meals Orally Active 100 MG Orally Three times a day ebranious 03/20/2018 [facility] Cefdinir as directed Orally Active 300 MG Orally bid ebranious 03/20/2018 [facility] Cipro 1 tablet Orally Active 250 MG Orally every 12 hrs ebranious 03/17/2018 [facility] Macrobid 1 capsule with food Orally Active 100 MG Orally every 12 hrs Negro 03/02/2018 [facility] Diflucan 1 tablet Orally Active 150 MG Orally every 24 hrs Tyrell White 02/27/2018 [facility] Cipro 1 tablet Orally Active 250 MG Orally every 12 hrs Tyrell White 02/27/2018 [facility] Amoxil 1 capsule Orally Active 250 MG Orally three donell es a day (tid) Tyrell White 02/20/2018 [facility] Sulfamethoxazole-Trimethoprim 1 tablet Orally Active 800-160 MG Orally Twice a day Negro 02/16/2018 [facility] Acetaminophen-Codeine 1-2 tabl et as needed Orally Active 300-30 MG Orally every 6 hrs Ming 11/21/2017 [facility] Naproxen 1 tablet Orally Active 500 [facility] Tamiflu 1 capsule Orally Active 75 mg Orally once a day ebranious 04/04/2017 [facility] Midodrine HCl 1 tablet Orally Active 5 MG Orally Three times a day Adarsh 06/20/2016 [facility] Midodrine HCl 1 tablet 1 q am; 2 tabs q noon; 1 tab q pm Orally Active 5 MG Orally daily Ghebranious [facility] Rytary 2 capsule Orally Active 48.75-195 MG Orally fou r times a day (qid) Ghebranious [facility] Tizanidine HCl 1 tablet as nee ded Orally Active 4 MG Orally every 8 hrs Rejiebranious [facility] Midodrine HCl 1 tablet Orally Active 5 MG Orally Three times a day Tyrell White [facility] Rytary 2 capsule Orally Active 48.75-195 MG Orally fou r times a day (qid) Ming [facility] Tizanidine HCl 1 tablet as nee ded Orally Active 4 MG Orally every 8 hrs Adarsh [facility] Allergies, Adverse Reactions, Alerts Substance Category Reaction Severity Reaction type Status Date Reported Comments Source N.K.D.A. Adverse Reaction Info Not Available Adverse Reaction Active 03/20/2018 [facility] No Known Medication Allergies Assertion Drug aller gy [facility] Immunizations No Data Provided for This Section Results No Data Provided for This Section Pathology Reports No Data Provided for This Section Diagnostic Reports No Data Provided for This Section Consultation Notes No Data Provided for This Section Discharge Summaries No Data Provided for This Section History and Physicals No Data Provided for This Section Vital Signs Vital Sign Value Date Comments Source Weight 110 03/20/2018 [facility] Height 64 0 03/20/2018 [facility] Heart Rate 68 03/20/2018 [facility] Diastolic (mm Hg) 74 03/20/2018 [facility] Systolic (mm Hg) 122 03/20/2018 [facility] Weight 110 02/16/2018 [facility] Height 64 1 04/19/2017 [facility] Heart Rate 87 02/16/2018 [facility] Diastolic (mm Hg) 70 02/16/2018 [facility] Systolic (mm Hg) 110 02/16/2018 [facility] Heart Rate 78 11/26/2017 [facility] Systolic (mm Hg) 103 11/26/2017 [facility] Diastolic (mm Hg) 60 11/26/2017 [facility] Diastolic (mm Hg) 80 11/21/2017 [facility] Systolic (mm Hg) 122 11/21/2017 [facility] Height 64 0 11/21/2017 [facility] Heart Rate 73 11/21/2017 [facility] Heart Rate 69 11/10/2017 [facility] Height 64 0 11/10/2017 [facility] Weight 114 08/19/2017 [facility] Height 64 0 08/19/2017 [facility] Heart Rate 66 08/19/2017 [facility] Diastolic (mm Hg) 74 08/19/2017 [facility] Systolic (mm Hg) 116 08/19/2017 [facility] Weight 116 06/10/2017 [facility] Height 64 0 06/10/2017 [facility] Heart Rate 77 06/10/2017 [facility] Diastolic (mm Hg) 74 06/10/2017 [facility] Systolic (mm Hg) 122 06/10/2017 [facility] Weight 115 05/13/2017 [facility] Height 64 0 05/13/2017 [facility] Heart Rate 68 05/13/2017 [facility] Diastolic (mm Hg) 62 05/13/2017 [facility] Systolic (mm Hg) 102 05/13/2017 [facility] Weight 107 07/11/2016 [facility] Height 64 0 07/11/2016 [facility] Heart Rate 77 07/11/2016 [facility] Diastolic (mm Hg) 62 07/11/2016 [facility] Systolic (mm Hg) 116 07/11/2016 [facility] Weight 100 06/20/2016 [facility] Height 64 0 06/20/2016 [facility] Heart Rate 88 06/20/2016 [facility] Diastolic (mm Hg) 58 06/20/2016 [facility] Systolic (mm Hg) 96 06/20/2016 [facility] Weight 102 06/14/2016 [facility] Height 64 0 06/14/2016 [facility] Heart Rate 99 06/14/2016 [facility] Diastolic (mm Hg) 62 06/14/2016 [facility] Systolic (mm Hg) 112 06/14/2016 [facility] Encounters Location Location Details Encounter Type Encounter Number Reason For Visit Attending Provider ADM Date DC Date Status Source [facility] [id number] Amir Jose C 11/26/2017 12/26/2017 [facility] [id number] Amir Jose C 01/25/2018 01/25/2018 [facility] Procedures No Data Provided for This Section Assessment and Plan No Data Provided for This Section Plan of Care No Data Provided for This Section Social History Social History Date Source No data available for this section 01/25/2018 [facility] Family History No Data Provided for This Section Advance Directives No Data Provided for This Section Functional Status No Data Provided for This Section
--- OUTSIDE RECORDS SUMMARY | 2019-08-04 01:24 | XMS REPORT ---
Author Author Candice Lai Organization [employer] Address Unknown Phone Unavailable Care Team Providers Care Spice Fumigator Name Role Phone Marcell Lai CP Unavailable Allergies, Adverse Reactions, Alerts Substance Reaction Event Type N.K.D.A. Info Not Available Non Drug Allergy Problems Problem Type Condition Code Onset Dates Condition Statu s Assessment Pain of left lower extremity M79.605 Active Problem HTN (hypertension), benign I10 A ctive Problem Parkinson disease G20 Active Problem Neuropathy involving both lower extremities G57.93 Active Assessment Fever, unspecified fever cause R50.9 Active Assessment Pain of left hip joint M25.552 Activ e Problem Underweight R63.6 Active Problem Constipation, unspecified constipation type K59.00 Active Medications Medication Code System Code Instructions Start Date End Date Status Dosage Tizanidine HCl [facility] 73597782178 4 MG Orally every 8 hrs Active 1 tablet as needed Rytary [facility] [address]-76 48.75-195 MG Orally four times a day (qid) Active 2 capsule Midodrine HCl [facility] 45114017787 5 MG Orally daily Acti ve 1 tablet 1 q am; 2 tabs q noon; 1 tab q pm Acetaminophen-Codeine [facility] [address]-66 300-30 MG Orally e very 6 hrs Nov 21, 2017 Nov 26, 2017 Active 1-2 tablet as needed Vital Signs Date/Time: Nov 21, 2017 Blood Pressure Diastolic 80 mm Hg Blood Pressure Systolic 122 mm Hg Height 64 in Cardiac Monitoring Heart Rate 73 /min Results Name Result Date Reference Range Unit Abnormali ty Flag Urine Culture, Routine ----Urine Culture, Routine Final report [id number] ----Result 1 No growth [id number] URINE AUTO W/O SCOPE ----Spec [place] 1.010 20171121 ----Turbidity clear 20171121 ----Glucose Neg 20171121 ----Ketones Neg 20171121 ----Blood Neg 20171121 ----Bili Neg 20171121 ----Color Yellow 20171121 ----pH 6.0 20171121 ----Leuk Est Neg 20171121 ----Nitrite Neg 20171121 ----Urobilinogen 0.2 20171121 ----Protein Trace 20171121 CBC ----MCHC 34.0 20171121 ----MCH 30.9 20171121 ----Platelets 232 20171121 ----RDW 12.8 20171121 ----NEUTROPHILS mid-0.7,gra-7.3 20171121 ----Hematocrit 40.3 20171121 ----MCV 91.0 20171121 ----RBC 4.43 20171121 ----Hemoglobin 13.7 20171121 ----WBC 9.2 20171121 Summary Purpose [employer]Works Submission
--- OUTSIDE RECORDS SUMMARY | 2019-08-04 01:24 | XMS REPORT ---
Author Author [facility] t Organization [facility] Address [address] [place] [address] Phone Unavailable Care Team Providers Care National Sales Consultant Name Role Phone CARLI NUNEZ MD PCP ULICES SUAREZ Attphys Unavailable Jose Carlos NAM Attphys Unavailable LEXI BARAJAS Attphys Unavailable SELENE WOOTEN Attphys Unavailable Shonda Nunez Attphys ULICES SUAREZ Admphyfrances Unavailable Payers Payer Name Policy Type Policy Number Effective Date Expiration Date Frances sen [facility] [id number] 2018 00:00:00 [facility] Medicare A & B [id number] 2012 00:00:00 [facility] [id number] 2018 00:00:00 [facility] Medicare A & B [id number] 2012 00:00:00 [facility] [id number] 2016 00:00:00 [facility] Medicare A & B [id number] 2012 00:00:00 [facility] Problems Condition Name Condition Details Condition Category Status Onset Date Resolution Date Last Treatment Date Treating Clinician Comments Source Parkinson's disease Parkinson disease Problem Active [facility] Syncope Syncope Problem Active [facility] Allergies, Adverse Reactions, Alerts Allergy Name Allergy Type Status Severity Reaction(s) Onset Date Inacti ve Date Treating Clinician Comments Source Sulfa (Sulfonamide Antibiotics) DA Active U 2019-04-14 00 :00:00 [facility] Sulfa (Sulfonamide Antibiotics) DA Active U 2018-03-06 00 :00:00 [facility] No Known Contrast Allergies DA Active U 2005-01-19 00:00: 00 [facility] No Known Drug Allergies DA Active U 2005-01-19 00:00:00 [facility] No Known Food Allergies DA Active U 2005-01-19 00:00:00 [facility] Medications Ordered Medication Name Filled Medication Name Start Date Stop Da te Current Medication? Ordering Clinician Indication Dosage Frequency Signature (SIG) Comments Components Source Cefdinir (Omnicef) 300 Mg Capsule Cefdinir (Omnicef) 300 Mg Capsule Yes 300 Twice A Day [facility] Dicyclomine Hcl 20 Mg Tablet Dicyclomine Hcl 20 Mg Tablet Y es 20 Every 6 Hours [facility] Ondansetron (Zofran Odt) 4 Mg Tab.rapdis Ondansetron ( Zofran Odt) 4 Mg Tab.rapdis Yes 4 Every 6 Hours [facility] Rytary Er Rytary Er Yes 2 Every 6 Hours [facility] Tizanidine Hcl 4 Mg Tablet Tizanidine Hcl 4 Mg Tablet Yes 4 Four Times Daily [facility] Tramadol Hcl (Ultram) 50 Mg Tablet Tramadol Hcl (Ultram) 50 Mg Tablet Yes 50 Every 8 Hours [facility] Carbidopa/Levodopa (Carbidopa-Levo Er 25-100 Tab) 1 Ea ch Tablet.er, 1 Tab Oral Carbidopa/Levodopa (Carbidopa-Levo Er 25-100 Tab) 1 Each Tablet.er, 1 Tab Oral 2016-04-07 00:00:00 No 1 Daily [facility] Levofloxacin (Levaquin) 500 Mg Tablet, 500 Mg Oral Lev ofloxacin (Levaquin) 500 Mg Tablet, 500 Mg Oral 2016-04-07 00:00:00 No 500 D [facility] Ranitidine Hcl (Zantac) 150 Mg Tablet, 150 Mg Oral Ran itidine Hcl (Zantac) 150 Mg Tablet, 150 Mg Oral 2016-03-28 00:00:00 No 150 D [facility] Tramadol Hcl 100 Mg Tab.er.24h, 100 Mg Oral Tramadol H cl 100 Mg Tab.er.24h, 100 Mg Oral 2013-03-29 00:00:00 No 100 As Needed [facility] Procedures Procedure Date / Time Performed Performing Clinician [facility] e Computed tomography of brain without radiopaque contrast 201 11-26-20 00:00:00 OKSANA RAMIREZ [facility] Computed tomography of cervical spine without contrast 03-06 00:00:00 OKSANA RAMIREZ [facility] Computed tomography of abdomen and pelvis with contrast 2018 00:00:00 ASHLEY NAM [facility] X-ray of chest, two views 2018-06-08 00:00:00 LEXI BARAJAS [facility] Encounters Start Date/Time End Date/Time En[facility] Ad[facility] Encounter ID Source 2019-03-06 03:54:00 2019-03-07 13:10:00 Discharged Inpatient (obs) [address] [facility] [id number] [facility] 2019-01-02 19:52:00 2019-01-02 23:16:00 Departed Emergency Room [address] [facility] [id number] [facility] 2018-06-08 16:06:00 2018-06-08 16:06:00 Registered Clinic [address] [facility] [id number] [facility] 2018-05-05 16:46:00 2018-05-05 16:46:00 Outpatient [facility] [id number] [facility] 2018-04-02 12:53:00 2018-04-02 12:53:00 Registered Clinic [address] [facility] [id number] [facility] 2018-03-20 15:00:00 2018-03-20 15:00:00 Outpatient [facility] [id number] [facility] 2018-03-17 21:24:00 2018-03-17 21:24:00 Outpatient [facility] [id number] [facility] 2018-03-02 19:05:00 2018-03-02 19:05:00 Outpatient [facility] [id number] [facility] 2018-02-27 15:26:00 2018-02-27 15:26:00 Outpatient [facility] [id number] [facility] 2018-02-20 12:55:00 2018-02-20 12:55:00 Outpatient [facility] [id number] [facility] 2018-02-16 16:15:00 2018-02-16 16:15:00 Outpatient [facility] [id number] [facility] 2018-01-25 08:00:00 2018-01-25 08:00:00 Outpatient Ghebran ious, Amir Ramsis [facility] [id number] [facility] 2017-11-26 08:00:00 2017-12-25 23:59:00 Outpatient Ghebran ious, Amir Ramsis [facility] [id number] [facility] 2017-11-21 12:45:00 2017-11-21 12:45:00 Outpatient [facility] [id number] [facility] 2017-11-15 22:32:00 2017-11-16 02:12:00 Departed Emergency Room [address] [facility] [id number] [facility] 2017-11-10 10:15:00 2017-11-10 10:15:00 Outpatient [facility] [id number] [facility] 2017-08-19 14:30:00 2017-08-19 14:30:00 Outpatient [facility] [id number] [facility] 2017-08-18 16:20:00 2017-08-18 16:20:00 Outpatient [facility] [id number] [facility] 2017-07-29 15:46:00 2017-07-29 15:46:00 Outpatient [facility] [id number] [facility] 2017-06-27 10:45:00 2017-06-27 10:45:00 Outpatient [facility] [id number] [facility] 2017-06-10 12:00:00 2017-06-10 12:00:00 Outpatient [facility] [id number] [facility] 2017-05-13 11:15:00 2017-05-13 11:15:00 Outpatient [facility] [id number] [facility] 2017-04-04 12:16:00 2017-04-04 12:16:00 Outpatient [facility] [id number] [facility] 2016-07-31 15:43:00 2016-07-31 15:43:00 Outpatient [facility] [id number] [facility] 2016-07-11 10:15:00 2016-07-11 10:15:00 Outpatient [facility] [id number] [facility] 2016-07-08 16:25:00 2016-07-08 16:25:00 Outpatient [facility] [id number] [facility] 2016-06-26 13:27:00 2016-06-26 13:27:00 Outpatient [facility] [id number] [facility] 2016-06-20 10:45:00 2016-06-20 10:45:00 Outpatient [facility] [id number] [facility] 2016-06-14 10:00:00 2016-06-14 10:00:00 Outpatient [facility] [id number] [facility] Medicine [facility] Results Test Description Test Time Test Comments Results Result Comments Source B-TYPE NATRIURETIC PEPTIDE 2019-04-14 18:44:00 Test Item B-TYPE NATRIURETIC PEPTIDE (test code = BNP) 79.5 PG/ML 0-100 N - XR HIP W/PEL UNI 2+V [id number] 18:43:00 FAX: Nahun Martinez MD [phone] [place]: St: REG Name: MANJU DIXON [facility] : [birth year] Age/S: 73/F [address] [place] [address] Unit #: [id number] Loc: [place] [address] Phys: Nahun Cox MD Acct: [id number] Dis Date: Status: REG ER PHONE #: [phone] Exam Date: 04/14/20191835 FAX #: [phone] Reason: acute injury EXAMS: CPT CODE: [id number] XR HIP W/PEL UNI 2+[place] [address] Clinical Indication: Acute injury. Comparison: None available. Impression: AP view of the pelvis and lateral view of the left hip. No acute fracture or dislocation. Degenerative changes of the lumbosacral spine. Soft tissues are unre markable. SL: [id number] El ectronically Signed by Kirsten Camarillo on 020 at 1843 Reported and signed by: Bob dawn M.D. CC: Nahun Cox MD Technologist: Carly Fu RT(R) Trnscrd Date/Time/By: 04/14/2019 (1842) : By: [email or web address] Orig Print D/T: S: 04/14/2019 (1845) PAGE 1 Signed Report [id number] 18:13:00* Test Item Value Reference Range Interpretation Comments D-DIMER (test code = DDIMER) 1361 ng/mlFEU <=500 HH THROMBOSIS AND/OR PULMONARY EMBOLISM AND THE CLINICAL CUT- OFF VALUE FOR EXCLUSION (500 ng/mL FEU) OF THESE CONDITIONSIS VALIDATED BY THE SCRAP BREAKER OF THE METHOD. A NEGATIVE D-DIMER RESULT WHEN COMBINED WITH A CLINICALASSESSMENT OF LOW PRETEST PROBABILITY HAS BEEN SHOWN TO HAVEA HIGH NEGATIVE PREDICTIVE VALUE OF DVT OR PE. D-DIMER VALUES >500 ng/mL FEU ARE NOT DIAGNOSTIC FOR DVT, PEor DIC WITHOUT OTHER CONFIRMATORY TESTS AND APPROPRIATECLINICAL EUALUATIONS. CBC W/AUTO [id number] 18:12:00* Test Item Value Reference Range Interpretation Comments WHITE BLOOD CELL (test code = WBC) 7.46 x10 3/uL 4.5-11.0 N RED BLOOD CELL (test code = RBC) 4.55 x10 6/uL 3.54-5.02 N HEMOGLOBIN (test code = HGB) 13.6 g/dL 11.0-15.0 N HEMATOCRIT (test code = HCT) 42.1 % 33.0-45.0 N MEAN CELL VOLUME (test code = MCV) 92.5 fL 81.0-99.0 N MEAN CELL HGB (test code = MCH) 29.9 pg 27.0-33.0 N MEAN CELL HGB CONCETRATION (test code = MCHC) 32.3 g/dL 33.0-37. 0 L RED CELL DISTRIBUTION WIDTH CV (test code = RDW) 13.0 % 11.5- 14.5 N RED CELL DISTRIBUTION WIDTH SD (test code = RDW-SD) 44.3 fL 37 .0-54.0 N PLATELET COUNT (test code = PLT) 258 x10 3/uL 150-400 N MEAN PLATELET VOLUME (test code = MPV) 10.6 fL 7.0-9.0 H NEUTROPHIL % (test code = NT%) 75.4 % 56.0-77.0 N IMMATURE GRANULOCYTE % (test code = IG%) 0.4 % 0.0-2.0 N LYMPHOCYTE % (test code = LY%) 14.6 % 14.0-32.0 N MONOCYTE % (test code = MO%) 6.6 % 4.8-9.0 N EOSINOPHIL % (test code = EO%) 1.9 % 0.3-3.7 N BASOPHIL % (test code = BA%) 1.1 % 0.0-2.0 N NUCLEATED RBC % (test code = NRBC%) 0.0 % 0-0 N NEUTROPHIL # (test code = NT#) 5.63 x10 3/uL 2.0-7.6 N IMMATURE GRANULOCYTE # (test code = IG#) 0.03 x10 3/uL 0.00-0.03 N LYMPHOCYTE # (test code = LY#) 1.09 x10 3/uL 1.0-3.8 N MONOCYTE # (test code = MO#) 0.49 x10 3/uL 0.1-0.8 N EOSINOPHIL # (test code = EO#) 0.14 x10 3/uL 0.0-0.2 N BASOPHIL # (test code = BA#) 0.08 x10 3/uL 0.0-0.2 N NUCLEATED RBC # (test code = NRBC#) 0.00 x10 3/uL 0.0-0.1 N MANUAL DIFF REQUIRED (test code = MDIFF) NO COMPREHENSIVE METABOLIC [id number] 18:09:00* Test Item Value Reference Range Interpretation Comments SODIUM (test code = NA) mEq/L 134-147 POTASSIUM (test code = K) mEq/L 3.4-5.0 CHLORIDE (test code = CL) mEq/L 100-108 CARBON DIOXIDE (test code = CO2) mEq/L 21-33 ANION GAP (test code = GAP) 0-20 GLUCOSE (test code = GLU) mg/dL 70-110 BLOOD UREA NITROGEN (test code = BUN) mg/dL 7-18 GLOMERULAR FILTRATION RATE (test code = GFR) 70-80 CREATININE (test code = CREAT) mg/dL 0.6-1.3 TOTAL PROTEIN (test code = PROT) g/dL 6.4-8.2 ALBUMIN (test code = ALB) g/dL 3.4-5.0 CALCIUM (test code = CA) mg/dL 8.0-10.5 BILIRUBIN TOTAL (test code = BILT) MG/DL <1.5 SGOT/AST (test code = AST) IUnit/L 15-37 SGPT/ALT (test code = ALT) IUnit/L 15-65 ALKALINE PHOSPHATASE TOTAL (test code = ALKP) IUnit/L 20-125 [id number] 18:09:00* Test Item Value Reference Range Interpretation Comments TROPONIN-I (test code = TROPI) < 0.015 ng/mL 0.000-0.045 N Negative: <= 0.045 Positive: >= 0.046 Correlation with serial results, other cardiac markers andclinical findings is necessary to determine the clinicalsignificance of this result. Results using different methodologies should not be comparedto one another as quantitative results may vary by method. COMPREHENSIVE METABOLIC [id number] 18:09:00* Test Item Value Reference Range Interpretation Comments SODIUM (test code = NA) 140 mEq/L 134-147 N POTASSIUM (test code = K) 3.6 mEq/L 3.4-5.0 N CHLORIDE (test code = CL) 107 mEq/L 100-108 N CARBON DIOXIDE (test code = CO2) 29 mEq/L 21-33 N ANION GAP (test code = GAP) 8 0-20 N GLUCOSE (test code = GLU) 93 mg/dL 70-110 N BLOOD UREA NITROGEN (test code = BUN) 27 mg/dL 7-18 H GLOMERULAR FILTRATION RATE (test code = GFR) 61.7 70-80 L Units of measure = ml/min/1.73 m2 CREATININE (test code = CREAT) 0.9 mg/dL 0.6-1.3 N TOTAL PROTEIN (test code = PROT) 6.6 g/dL 6.4-8.2 N ALBUMIN (test code = ALB) 3.70 g/dL 3.4-5.0 N CALCIUM (test code = CA) 8.8 mg/dL 8.0-10.5 N BILIRUBIN TOTAL (test code = BILT) 0.4 MG/DL <1.5 N SGOT/AST (test code = AST) 11 IUnit/L 15-37 L SGPT/ALT (test code = ALT) 11 IUnit/L 15-65 L ALKALINE PHOSPHATASE TOTAL (test code = ALKP) 88 IUnit/L 20-125 N [id number] 18:09:00* Test Item Value Reference Range Interpretation Comments TROPONIN-I (test code = TROPI) < 0.015 ng/mL 0.000-0.045 N Negative: <= 0.045 Positive: >= 0.046 Correlation with serial results, other cardiac markers andclinical findings is necessary to determine the clinicalsignificance of this result. Results using different methodologies should not be comparedto one another as quantitative results may vary by method. - XR NECK SOFT [id number] 17:50:00 FAX: Nahun Martinez MD [phone] [place]: St: REG Name: MANJU DIXON [facility] : [birth year] Age/S: 73/F [address] [place] [address] Unit #: [id number] Loc: [place] [address] Phys: Nahun Cox MD Acct: [id number] Dis Date: Status: REG ER PHONE #: [phone] Exam Date: 04/14/2019 1732 FAX #: [phone] Reason: neck tightness/sob EXAMS: CPT CODE: [id number] XR NECK SOFT TISSUE 91209 Clinical Indication: Neck tightness, shortness of breath. Comparison: None available. Impres kaleigh: Soft tissue neck, 2 views submitted on 4 images. Airway is patent . Epiglottis is normal. Prevertebral soft tissues are normal. Of the visualized osseous structures, no acute fracture or subluxation. SL: [id number] Electronically Sign ed by Kirsten Camarillo on 04/14/2019 at 1750 Reported and signed by: Bob Camarillo M.D. CC: Nahun Cox MD Technologist: RT Leticia(R) Trnsctabitha Alvarez ate/Time/By: 04/14/2019 (1243) : By: [email or web address] Orig Print D/T: S: 03/18 (5046) PAGE 1 Signed Repor t - XR CHEST 2 [id number] 17:46:00 FAX: Nahun Martinez MD [phone] [place]: St: REG Name: MANJU DIXON [facility] : [birth year] Age/S: 73/F [address] [place] [address] Unit #: [id number] Loc: [place] [address] Phys: Nahun Cox MD Acct: [id number] Dis Date: Status: REG ER PHONE #: [phone] Exam Date: 04/14/2019 173 FAX #: [phone] Reason: SOB EXAMS: CPT CODE: [id number] XR CHEST 2 V 16626 Chest, 2 views dated 04/14/2019. HISTORY: Shortness of breath. Comparison is made to a prior study dated 03/06/2018. The heart is normal in size. The ca rdiomediastinal shadow is stable. The lungs appear clear. The pulmonary vasculature is normal in caliber. No acute pleural space abnormalities ar e identified. No gross abnormalities of the bony thorax are noted. IMPRESSION: 1. No radiographic evidence of acute cardiopulmon izzy disease. SL: 131 at 8261 Reported and signed by: Flo meek M.D. CC: Nahun Cox MD Technologist: RT Leticia(R) Guilherme Date/Time/By: 04/14/2019 (8584) : By: GlennM Orig Print D /T: S: 04/14/2019 (4570) PAGE 1 S igned Report Magnesium [id number] 06:30:00* Test Item Value Reference Range Interpretation Comments Magnesium Level (test code = 02544-0) 2.0 1.3-2.1 [facility] [id number] 05:41:00* Test Item Value Reference Range Interpretation Comments Sodium Level (test code = 2951-2) 141 136-145 [facility] [id number] 05:41:00* Test Item Value Reference Range Interpretation Comments Potassium Level (test code = 2823-3) 3.6 3.5-5.1 [facility] RegionalChloride [id number] 05:41:00* Test Item Value Reference Range Interpretation Comments Chloride Level (test code = 2075-0) 110 98-107 [facility] RegionalCarbon Dioxide [id number] 05:41:00* Test Item Value Reference Range Interpretation Comments Carbon Dioxide Level (test code = 2028-9) 24 22-29 [facility] RegionalAnion [id number] 05:41:00* Test Item Value Reference Range Interpretation Comments Anion Gap (test code = 65165-2) 10.6 8-16 [facility] RegionalBlood Urea [id number] 05:41:00* Test Item Value Reference Range Interpretation Comments Blood Urea Nitrogen (test code = 3094-0) 19 7-26 [facility] RegionalCreatinine2019-12-22 05:41:00* Test Item Value Reference Range Interpretation Comments Creatinine (test code = 2160-0) 0.80 0.57-1.11 [facility] RegionalBUN/Creatinine [id number] 05:41:00* Test Item Value Reference Range Interpretation Comments BUN/Creatinine Ratio (test code = 3097-3) 24 6-25 [facility] RegionalEstimat Glomerular Filtration Rate 2019-03-07 05:41:00* Test Item Value Reference Range Interpretation Comments Estimat Glomerular Filtration Rate (test code = 835424683) > 60 >60 Ranges were taken from the National Kidney Disease Education Program and the [facility] Kid[facility] Foundation literature.Reference ranges:60 or greater: Zwmlxh91-30 ( for 3 consecutive months): Chronic kidney disease 15 or less: Kidney failureCorpus Christi Medical Center – Doctors RegionalGlucose [id number] 05:41:00* Test Item Value Reference Range Interpretation Comments Glucose Level (test code = JNW8549) 98 74-118 [facility] RegionalCalcium [id number] 05:41:00* Test Item Value Reference Range Interpretation Comments Calcium Level (test code = 94030-2) 8.6 8.4-10.2 [facility] RegionalTotal [id number] 05:41:00* Test Item Value Reference Range Interpretation Comments Total Bilirubin (test code = 1975-2) 0.3 0.2-1.2 [facility] RegionalAspartate Amino Transf (AST/SGOT) 2019-03-07 05:41:00* Test Item Value Reference Range Interpretation Comments Aspartate Amino Transf (AST/SGOT) (test code = Aspartate Amino Transf (AST/SGOT)) 8 5-34 [facility] RegionalAlanine Aminotransferase (ALT/SGPT) 2019-03-07 05:41:00* Test Item Value Reference Range Interpretation Comments Alanine Aminotransferase (ALT/SGPT) (test code = 1742-6) < 6 0-55 [facility] RegionalTotal [id number] 05:41:00* Test Item Value Reference Range Interpretation Comments Total Protein (test code = 2885-2) 5.3 6.5-8.1 [facility] RegionalAlbumin2019-12-22 05:41:00* Test Item Value Reference Range Interpretation Comments Albumin (test code = 1751-7) 3.3 3.5-5.0 [facility] RegionalGlobulin2019-12-22 05:41:00* Test Item Value Reference Range Interpretation Comments Globulin (test code = 93736-5) 2.0 2.3-3.5 [facility] RegionalAlbumin/Globulin [id number] 05:41:00 * Test Item Value Reference Range Interpretation Comments Albumin/Globulin Ratio (test code = 1759-0) 1.7 0.8-2.0 [facility] RegionalAlkaline [id number] 05:41:00* Test Item Value Reference Range Interpretation Comments Alkaline Phosphatase (test code = 6768-6) 71 40-150 [facility] RegionalWhite Blood [id number] 05:19:00* Test Item Value Reference Range Interpretation Comments White Blood Count (test code = 6690-2) 9.30 4.8-10.8 [facility] RegionalRed Blood [id number] 05:19:00* Test Item Value Reference Range Interpretation Comments Red Blood Count (test code = 789-8) 4.21 3.6-5.1 [facility] RegionalHemoglobin2019-12-22 05:19:00* Test Item Value Reference Range Interpretation Comments Hemoglobin (test code = 06629-0) 12.4 12.0-16.0 [facility] RegionalHematocrit2019-12-22 05:19:00* Test Item Value Reference Range Interpretation Comments Hematocrit (test code = 4544-3) 38.5 34.2-44.1 [facility] RegionalMean Corpuscular [id number] 05:19:00* Test Item Value Reference Range Interpretation Comments Mean Corpuscular Volume (test code = 787-2) 91.4 81-99 [facility] RegionalMean Corpuscular Lyglqbicds3771-57-02 05:19:00* Test Item Value Reference Range Interpretation Comments Mean Corpuscular Hemoglobin (test code = 785-6) 29.5 28-32 [facility] RegionalMean Corpuscular Hemoglobin Concent 2019-03-07 05:19:00* Test Item Value Reference Range Interpretation Comments Mean Corpuscular Hemoglobin Concent (test code = 786-4) 32.2 31-35 [facility] RegionalRed Cell Distribution [id number] 05:19:00* Test Item Value Reference Range Interpretation Comments Red Cell Distribution Width (test code = 11755-3) 12.9 11.7 -14.4 [facility] RegionalPlatelet Fnvme2007-83-19 05:19:00* Test Item Value Reference Range Interpretation Comments Platelet Count (test code = 777-3) 204 140-360 [facility] RegionalNeutrophils (%) (Auto)2019-03-07 05:19:00 * Test Item Value Reference Range Interpretation Comments Neutrophils (%) (Auto) (test code = 84083-8) 77.3 38.7-80.0 [facility] RegionalLymphocytes (%) (Auto)2019-03-07 05:19:00 * Test Item Value Reference Range Interpretation Comments Lymphocytes (%) (Auto) (test code = 736-9) 13.8 18.0-39.1 [facility] RegionalMonocytes (%) (Auto)2019-03-07 05:19:00* Test Item Value Reference Range Interpretation Comments Monocytes (%) (Auto) (test code = 5905-5) 6.7 4.4-11.3 [facility] [facility] Regional[facility]osinophils (%) (Auto)2019-03-07 05:19:00 * Test Item Value Reference Range Interpretation Comments Eosinophils (%) (Auto) (test code = 713-8) 1.3 0.0-6.0 [facility] (%) (Auto)2019-03-07 05:19:00* Test Item Value Reference Range Interpretation Comments Basophils (%) (Auto) (test code = 706-2) 0.4 0.0-1.0 [facility] RegionalIM GRANULOCYTES %2019-03-07 05:19:00* Test Item Value Reference Range Interpretation Comments IM GRANULOCYTES % (test code = IM GRANULOCYTES %) 0.5 0.0- 1.0 [facility] RegionalNeutrophils # (Auto)2019-03-07 05:19:00* Test Item Value Reference Range Interpretation Comments Neutrophils # (Auto) (test code = 751-8) 7.2 2.1-6.9 [facility] RegionalLymphocytes # (Auto)2019-03-07 05:19:00* Test Item Value Reference Range Interpretation Comments Lymphocytes # (Auto) (test code = 87633-8) 1.3 1.0-3.2 [facility] RegionalMonocytes # (Auto)2019-03-07 05:19:00* Test Item Value Reference Range Interpretation Comments Monocytes # (Auto) (test code = 742-7) 0.6 0.2-0.8 [facility] RegionalEosinophils # (Auto)2019-03-07 05:19:00* Test Item Value Reference Range Interpretation Comments Eosinophils # (Auto) (test code = 711-2) 0.1 0.0-0.4 [facility] RegionalBasophils # (Auto)2019-03-07 05:19:00* Test Item Value Reference Range Interpretation Comments Basophils # (Auto) (test code = 704-7) 0.0 0.0-0.1 [facility] RegionalAbsolute Immature Granulocyte (auto 2019-03-07 05:19:00* Test Item Value Reference Range Interpretation Comments Absolute Immature Granulocyte (auto (el t code = Absolute Immature Granulocyte (auto) 0.05 0-0.1 [facility] RegionalBlood Xlzhybd5402-03-47 02:57:00* Test Item Value Reference Range Interpretation Comments Blood Culture (test code = 19786286) NO GROWTH AFTER 24 HOURS [facility] RegionalCreatine Kinase YN7700-00-17 18:21:00* Test Item Value Reference Range Interpretation Comments Creatine Kinase MB (test code = 96279-2) 6.70 0-5.0 [facility] RegionalTroponin S3317-19-35 18:21:00* Test Item Value Reference Range Interpretation Comments Troponin I (test code = JJK8727) < 0.001 0-0.300 [facility] RegionalCreatine Khunzz1376-03-29 18:15:00* Test Item Value Reference Range Interpretation Comments Creatine Kinase (test code = 2157-6) 223 29168 [facility] RegionalThyroid Stimulating Hormone (TSH) 2019-03-06 10:28:00* Test Item Value Reference Range Interpretation Comments Thyroid Stimulating Hormone (TSH) (test code = 40218-4) 1.112 0.350-4.940 [facility] RegionalTriglycerides Bafhw5056-31-13 10:03:00* Test Item Value Reference Range Interpretation Comments Triglycerides Level (test code = 2571-8) 75 0-149 [facility] RegionalCholesterol Sbssr9181-84-92 10:03:00* Test Item Value Reference Range Interpretation Comments Cholesterol Level (test code = 2093-3) 145 0-199 Less than 200 mg/dL Low Avlu562 - 239 mg/dL Borderline Xcvn422 m g/dl and greater High Risk [facility] Doctors RegionalLDL Kdkxgybmvao1043-61-69 10:03:00* Test Item Value Reference Range Interpretation Comments LDL Cholesterol (test code = 2089-1) 87 60-130 [facility] Doctors RegionalHDL Cvsftqapivu8945-81-56 10:03:00* Test Item Value Reference Range Interpretation Comments HDL Cholesterol (test code = 2085-9) 43 40-60 [facility] RegionalCholesterol/HDL Ybdek0826-19-91 10:03:00 * Test Item Value Reference Range Interpretation Comments Cholesterol/HDL Ratio (test code = 9830-1) 3.4 3.0-3.6 [facility] RegionalHemoglobin A1c Sedypht2553-45-45 10:00:00 * Test Item Value Reference Range Interpretation Comments Hemoglobin A1c Percent (test code = Hemoglobin A1c Percent) 5.7 4.0-7.0 [facility] RegionalUrine LCC1328-86-71 04:09:00* Test Item Value Reference Range Interpretation Comments Urine WBC (test code = 5821-4) 0-5 0-5 [facility] RegionalUrine LDI3267-32-16 04:09:00* Test Item Value Reference Range Interpretation Comments Urine RBC (test code = 37943-5) 0-5 0-5 [facility] RegionalUrine Rzzdcwxz4804-62-46 04:09:00* Test Item Value Reference Range Interpretation Comments Urine Bacteria (test code = 72067-5) MODERATE NONE [facility] RegionalUrine Epithelial Qlawj1979-49-44 04:09:00 * Test Item Value Reference Range Interpretation Comments Urine Epithelial Cells (test code = 93620-9) FEW NONE [facility] RegionalUrine Amorphous Ptyvtsxd4258-35-55 04:09:00* Test Item Value Reference Range Interpretation Comments Urine Amorphous Sediment (test code = 8246-1) MANY FEW [facility] Doctors RegionalPELVIS AP 1-2 TTQUI8938-24-34 04:01:00 [place] [address] Patient Name: MANJU PEARSON MR #: [id number] : 1945 Age/Sex: 73/F Req #: [id number] Adm Physician: ULICES SUAREZ MD Ordered by: OKSANA RAMIREZ MD Report #: [id number] Location: [facility] Room/Bed: [place] [address] Procedure: [id number] DX/PELVIS AP 1-2 VIEWS Exam Date: 03/06/19 Exam Time : 0236 REPORT STATUS: Signed PEL VIS AP 1-2 VIEWS - 1 view HISTORY: Pain COMPARISON: None available. FINDINGS: See impression. IMPRESSION: Limited by slight rotat ion. No definite evidence of acute displaced fracture or dislocation. Sig karla by: Dr. David Cain MD on 03/06/2019 4:02 AM Dictated By: DAVID MONDRAGON MD 1 Transcrib ed By: SAVITA on 03/06/19401 COPY TO: OKSANA RAMIREZ MD CHEST SINGLE (PORTABLE)2019-03-06 04:00:00 [facility] [address] [address] Patient Name: MANJU PEARSON MR #: [id number] : 1945 Age/Sex: 73/F Req #: [id number] Adm Physician: ULICES SUAREZ MD Ordered by: OKSANA RAMIREZ MD Report #: [id number] Location: [facility] Room/Bed: [place] [address] Procedure: [id number] DX/CHEST SINGLE (PORTABLE) Exam Date: 03/06/19 Exam Time: 235 REPORT STATUS: Signed EXAMINATION: CHEST SINGLE (PORTABLE) INDICATION: syncope [id number] COMPARISON: 06/08/2018 FINDINGS: AP view TUBES and LINES: None. LUNGS: Patient's chin obscures lung apices. Lungs are well inflated. There is no evidence of pneumonia or pulmonary edema. PLEURA: No significant pleural effusion or pneumothorax. HEART AND MEDI ASTINUM: The cardiomediastinal silhouette is unremarkable. BONES AND S OFT TISSUES: No acute osseous lesion. Soft tissues are unremarkable. UP PER ABDOMEN: No free air under the diaphragm. IMPRESSION: No acute t horacic abnormality. Signed by: Dr. David Cain MD on 03/06/2019 4:01 AM Dictated By: DAVID CAIN MD 0 Transcribed By: SAVITA on 03/06/19400 COPY TO: OKSANA RAMIREZ MD B-Type Natriuretic Pqusizg8880-85-73 03:57:00* Test Item Value Reference Range Interpretation Comments B-Type Natriuretic Peptide (test code = 99710-3) 149.4 0-100 [facility] ZM9618-99-14 03:48:00 [facility] [address] [address] Patient Name: MANJU PEARSON MR #: [id number] : 1945 Age/Sex: 73/F Req #: [id number] Adm Physician: ULICES SUAREZ MD Ordered by: OKSANA RAMIREZ MD Report #: [id number] Location: [facility] Room/Bed: [place] [address] Procedure: [id number] CT/CT CERVICAL SPINE WO Exam Date: 03/06/19 Exam Yohannes e: 0236 REPORT STATUS: Signed Hi story: Syncope, fall. Comparison studies: None Technique: Axial jose ges were obtained through the cervical region.. Coronal and sagittal images re constructed from the axial data. Dose modulation, iterative reconstruction, an d/or weight based adjustment of the mA/kV was utilized to reduce the radiation dose to as low as reasonably achievable. Intravenous contrast: None Findings: Fractures: None. Soft tissue injuries: None. Atlantoaxial articulation: Intact. Alignment: Loss of normal cervical lordosis is either p ositional or due to muscle spasm. Mild levoscoliosis of the cervical spine. Cervicomedullary junction: No abnormalities. The foramen magnum is patent. Sof t tissues: No abnormalities. Vertebrae: No fractures, infection or neop lasm. Degenerative changes: C2-C3: Mild right foraminal stenosis due to facet and uncovertebral arthrosis. C3-C4: Severe right foraminal stenosis due to facet and uncovertebral arthrosis. C4-C5: Severe right foraminal stenosis due to facet and uncovertebral arthrosis. C5-C6: Mild bilateral foraminal s tenosis due to facet and uncovertebral arthrosis. C6-C7: Severe right and mo derate left foraminal stenosis due to facet and uncovertebral arthrosis. Incidental finding: Partial opacification of right mastoid air cells. IMP RESSION: 1. No acute cervical spine fracture or dislocation. Loss of tisha l cervical lordosis is either positional or due to muscle spasm. 2. Liga ment, spinal cord and or vascular abnormalities cannot be excluded on the basi s of this examination. 3. Cervical spondylosis as detailed above. Signed by: Dr. Ro Munoz M.D. on 03/06/2019 3:54 AM Dictated By: RO MUNOZ MD 0 354 Transcribed By: SAVITA on 03/06/19 2598 COPY TO: OKSANA RAMIREZ MD Prothrombin Bdkm9502-06-81 03:45:00* Test Item Value Reference Range Interpretation Comments Prothrombin Time (test code = 5902-2) 13.4 11.9-14.5 [facility] RegionalProthromb Time International Ratio 2019-03-06 03:45:00* Test Item Value Reference Range Interpretation Comments Prothromb Time International Ratio (test code = 6301-6) 0.97 Oral Anticoagulant Therapy INR Values:1. Low Intensity Therapy 1.5 - 2.02 . Moderate Intensity Therapy 2.0 - 3.03. High Intensity Therapy(1) 2.5 - 3. 54. High Intensity Therapy(2) 3.0 - 4.05. Panic Value INR > 5.0 [facility] RegionalActivated Partial Thromboplast Time 2019-03-06 03:45:00* Test Item Value Reference Range Interpretation Comments Activated Partial Thromboplast Time (test code = 96513-9) 25.3 23.8-35.5 [facility] RegionalUrine Amfnp1586-60-30 03:45:00* Test Item Value Reference Range Interpretation Comments Urine Color (test code = 5778-6) YELLOW YELLOW [facility] RegionalUrine Eqbycqb1027-45-83 03:45:00* Test Item Value Reference Range Interpretation Comments Urine Clarity (test code = 88959-3) SL CLOUDY CLEAR [facility] RegionalUrine Specific Mkxnapc5547-59-51 03:45:00 * Test Item Value Reference Range Interpretation Comments Urine Specific [place] (test code = 5811-5) 1.020 1.010-1.02 5 [facility] RegionalUrine jX4374-50-78 03:45:00* Test Item Value Reference Range Interpretation Comments Urine pH (test code = 48857-1) 7 5-7 [facility] RegionalUrine Leukocyte Sbikrjvn3394-03-74 03:45:00* Test Item Value Reference Range Interpretation Comments Urine Leukocyte Esterase (test code = 84629-3) NEGATIVE NEGATIV E [facility] RegionalUrine Stlhpip6368-72-05 03:45:00* Test Item Value Reference Range Interpretation Comments Urine Nitrite (test code = 01408-7) NEGATIVE NEGATIVE [facility] RegionalUrine Xhtsccp0431-00-64 03:45:00* Test Item Value Reference Range Interpretation Comments Urine Protein (test code = 21850-6) NEGATIVE NEGATIVE [facility] RegionalUrine Glucose (UA)2019-03-06 03:45:00* Test Item Value Reference Range Interpretation Comments Urine Glucose (UA) (test code = 47356-0) NEGATIVE NEGATIVE [facility] RegionalUrine Jqcyfwk4155-35-15 03:45:00* Test Item Value Reference Range Interpretation Comments Urine Ketones (test code = 22626-1) NEGATIVE NEGATIVE [facility] RegionalUrine Msestacjxcbd6253-05-31 03:45:00* Test Item Value Reference Range Interpretation Comments Urine Urobilinogen (test code = 83308-8) 0.2 0.2-1 [facility] RegionalUrine Rybsecfrl5624-46-45 03:45:00* Test Item Value Reference Range Interpretation Comments Urine Bilirubin (test code = 1977-8) NEGATIVE NEGATIVE [facility] RegionalUrine Zmjiy6008-51-93 03:45:00* Test Item Value Reference Range Interpretation Comments Urine Blood (test code = 22817-5) NEGATIVE NEGATIVE [facility] RegionalCT BRAIN EU7445-15-97 03:44:00 [facility] [address] [place] [address] Patient Name: MANJU PEARSON MR #: [id number] : 1945 [facility]: 73[id number] Req #: [id number] Adm Physician: Ordered by: OKSANA RAMIREZ MD Report #: [id number] Location: ER Room/Bed: Procedure: [id number] C T/CT BRAIN WO Exam Date: 03/06/19 Exam Time: 235 REPORT STATUS: Signed EXAMINATION: Head CT without contrast. HISTORY:Syncope, fall. COMPARISON:Repo rt of CT brain from 05/25/2012, prior images not available for comparison at [facility] time of interpretation. TECHNIQUE: Multidetector axial images were obtain ed from the foramen magnum to the vertex without contrast. The images were rec onstructed using brain and bone algorithms. Thin section brain images were re formatted into coronal and sagittal planes. Dose modulation, iterative recon struction, and/or weight based adjustment of the mA/kV was utilized to reduce the radiation dose to as low as reasonably achievable. Intravenous contra st: None IMAGE QUALITY: Suboptimal evaluation particularly of the skull b ase and posterior fossa structures due to streak artifacts. FINDINGS: Skull/scalp: No lytic or blastic. lesions. No surgical changes. Parenc hyma: Nonspecific few, scattered supratentorial white matter hypodensity are l ikely related to small vessel ischemic changes. No acute hemorrhage, mass or a cute major vascular territorial infarct. Arteries: No density suggestive o f thrombosis. Dural sinuses: No abnormal density suggestive of thrombos is. Ventricles: No hydrocephalus or displacement. Extra-axial space s: No abnormal density. Brain volume: Normal for age. Craniocervic al junction: No mass, Chiari malformation, or basilar invagination. Sell a: No mass. Paranasal/mastoid sinuses: Under pneumatization and partial s clerosis of left mastoid air cells possibly related to chronic inflammatory pr ocess. Mild mucosal thickening in bilateral ethmoid sinuses. IMPRESSIO N: No acute intracranial abnormality. Mild supratentorial white matter mi crovascular ischemic changes. Signed by: Dr. Ro Munoz M.D. on 03/06 3:48 AM Dictated By: RO MUNOZ MD 7 Transcribed By: SAVITA on 03/06/19347 COPY TO: OKSANA RAMIREZ MD Lactic Acid Lvymf1955-69-70 03:37:00* Test Item Value Reference Range Interpretation Comments Lactic Acid Level (test code = Lactic Acid Level) 0.6 0.5- 2.0 [facility] Z3475-36-54 22:42:00 [facility] [address] [place] [address] Patient Name: MANJU PEARSON MR #: [id number] : 1945 Age/Sex: 73/F Req #: [id number] Adm Physician: Ordered by: ASHLEY NAM MD Report #: [id number] Location: ER Room/Bed: Procedure: [id number] CT/CT ABDOMEN/PELVIS W Exam Date: Exam Time: REPORT STATUS: Signed EXAM: CT Abdomen and Pelvis WITH contrast INDICATION: llq pain Y SHADY RISON: CT dated 11/16/2017 TECHNIQUE: Abdomen and pelvis were scanned utilizing a multidetector helical scanner from the lung base to the pubic symphysis afte r administration of IV contrast. Coronal and sagittal reformations were obtain ed. Dose modulation, iterative reconstruction, and/or weight based adjustment of the mA/kV was utilized to reduce the radiation dose to as low as reasonably achievable. Routine protocol was performed. Scan was performed when during po rtal venous phase. IV CONTRAST: 100 mL of Isovue-370 ORAL CO NTRAST: Gastroview COMPLICATIONS: None RADIATION DOSE: Total DLP: 273 mGy*cm Estimated effective dose: (DLP x 0.015 x size f actor) mSv CTDIvol has been reviewed. It is below the limits set by the [facility] ([facility]). FINDINGS: LINES and TUBES: None. LOWER THORAX: Dependent atelectasis. HEPATOBILIARY: No focal hep atic lesions. No biliary ductal dilation. GALLBLADDER: No radio-opaque sto kerri or sludge. No wall thickening. SPLEEN: No splenomegaly. PANCREAS : No focal masses or ductal dilatation. ADRENALS: No adrenal nodules KIDNEYS/URETERS: Kidneys enhance symmetrically. No hydronephrosis. No cyst ic or solid mass lesions. No stones. GI TRACT: No abnormal distention, w all thickening, or evidence of bowel obstruction. Appendix is normal. PELVIC ORGANS/BLADDER: Hysterectomy. Bladder is unremarkable. LYMPH NODE S: No lymphadenopathy. VESSELS: Unremarkable. PERITONEUM / RETROPERITO NEUM: No free air or fluid. BONES: Unremarkable. SOFT TISSUES: Unremar kable. IMPRESSION: 1. No acute inflammatory process in the abdomen/pelvis to explain patient's symptoms. Signed by: Dr. David Holder i, MD on 01/02/2019 10:48 PM Dictated By: DAVID CAIN MD Electronicall y Signed By: DAVID CAIN MD on 01/02/192247 Transcribed By: SAVITA on 01/02 COPY TO: ASHLEY NAM MD Amylase Level 2019-01-02 21:39:00* Test Item Value Reference Range Interpretation Comments Amylase Level (test code = 1798-8) 44 25-125 [facility] RegionalLipase2019-10-19 21:39:00* Test Item Value Reference Range Interpretation Comments Lipase (test code = 3040-3) 11 8-78 [facility] RegionalCHEST 2 HLMTK1180-07-52 17:27:00 [facility] [address] [place] [address] Patient Name: MANJU PEARSON MR #: [id number] : 1945 Age/Sex: 72/F Req #: [id number] Adm Physician: Ordered by: LEXI BARAJAS MD Report #: [id number] Location: [facility] Room/Bed: Procedure: [id number] DX/ CHEST 2 VIEWS Exam Date: 06/08/18 Exam Time: 1700 REPORT STATUS: Signed EXAMINATION: CHEST 2 VIEWS INDICATION: [id number] COUGH COM PARISON: Abdomen and pelvis CT dated 11/16/2017 FINDINGS: AP and later al views TUBES and LINES: None. LUNGS/PLEURA: The lungs are clear . No pleural effusion or pneumothorax. HEART AND MEDIASTINUM: The cardiome diastinal silhouette is unremarkable. BONES AND SOFT TISSUES: No acute osseous lesion. Soft tissues are unremarkable. UPPER ABDOMEN: No free a ir under the diaphragm. IMPRESSION: No acute thoracic abnormality. Signed by: Barry Cota MD on 06/08/2018 5:28 PM Dictated By: JARRETT COTA MD 27 COPY TO: LEXI BARAJAS RENAL RETROPERITONEAL GOBF0170-07-29 14:02:00 [place] [address] Patient Name: MANJU PEARSON MR #: [id number] : 1945 Age/Sex: 72/F Req #: [id number] Adm Physician: Ordered by: SELENE WOOTEN MD Report #: [id number] Location: Room/Bed: Procedure: [id number] US/US RENAL RETROPERITONEAL COMP Exam Date: 04/02/18 Exam Time: 1337 REPORT STATUS: Sig karla EXAMINATION: Renal ultrasound. CLINICAL HISTORY :Microscopic hematur ia COMPARISON: <None available.> TECHNIQUE: Grayscale and color [...] 2:03 PM Dictated By: YULIYA SALMERON MD 140 Transcribed By: SAVITA on 04/02/18 140 COPY TO: SELENE WOOTEN MD CT ABDOMEN/PELVIS [id number] 00:37:00 [place] [address] Patient Name: MANJU PEARSON MR #: [id number] : 1945 Age/Sex: 71/F Req #: [id number] Adm Physician: Ordered by: ASHLEY NAM MD Report #: [id number] Location: ER Room/Bed: Procedure: [id number] CT/CT ABDOMEN/PELVIS W Exam Date: Exam Time: REPORT STATUS: Sulema d EXAM: CT ABDOMEN AND PELVIS with IV CONTRAST DATE: 11/15/2017 10:35 PM Yohannes lau stamp on Exam: 0023 hours INDICATION: Left-sided abdominal pain COMPARISO N: None TECHNIQUE: The abdomen and pelvis were scanned using a multidetector helical scanner. Coronal and sagittal reformations were obtained. Dose modula tion, iterative reconstruction, and/or weight based adjustment of the mA/kV wa s utilized to reduce the radiation dose to as low as reasonably achievable. Routine protocol performed. IV Contrast: 100 cc Isovue 370 Oral Contrast: Wa ter FINDINGS: LOWER THORAX: No consolidations LIVER: No masses KEM IARY: The gallbladder is unremarkable. No ductal dilation. SPLEEN: No mass es PANCREAS: No masses ADRENALS: No nodules KIDNEYS: Symmetric perfusio n. No enhancing masses. No hydronephrosis. GI TRACT: No distention, wall th ickening or evidence of obstruction. Small hiatal hernia. Normal appendix. VESSELS: Unremarkable PERITONEUM/RETROPERITONEUM: No free air or fluid LYM PH NODES: No lymphadenopathy REPRODUCTIVE ORGANS: Uterus and ovaries are no t visualized. BLADDER: Unremarkable SOFT TISSUES: Unremarkable BONES: N o suspicious bone lesions. IMPRESSION: No acute findings in the CT of the abdomen or pelvis. Signed by: Dr. Abby Neri M.D. on 11/16/2017 12:44 AM Dictated By: ABBY NERI MD Transcribed By: SAVITA on 11/16/1743 COPY TO: ASHLEY NAM MD
--- OUTSIDE RECORDS SUMMARY | 2019-08-04 01:24 | XMS REPORT ---
Author Author Candice Taylor Organization [employer] Address Unknown Phone Unavailable Care Team Providers Care Platform Stapler Name Role Phone Atiya Taylor CP Unavailable [...] Instructions Start Date End Date Status Dosage Cipro [facility] 98113849751 250 MG Orally every 12 hrs Mar 17, 9 Mar 22, 2018 Active 1 tablet Results No Known Results Summary Purpose [employer] Submission
--- OUTSIDE RECORDS SUMMARY | 2019-08-04 01:24 | XMS REPORT ---
Author Author Candice Woodall Organization [employer] Address Unknown Phone Unavailable Care Team Providers Care Dry Cell And Battery Assembler Name Role Phone Judith Woodall CP Unavailable Allergies, Adverse Reactions, Alerts Substance Reaction Event Type N.K.D.A. Info Not Available Non Drug Allergy Problems Problem Type Condition Code Onset Dates Condition Statu s Assessment Dysuria R30.0 Active Problem HTN (hypertension), benign I10 A ctive Problem Parkinson disease G20 Active Problem Neuropathy involving both lower extremities G57.93 Active Assessment Urinary tract infection without hematuria, site unspec ified N39.0 Active Problem Underweight R63.6 Active Problem Constipation, unspecified constipation type K59.00 Active Medications Medication Code System Code Instructions Start Date End Date Status Dosage Tizanidine HCl [facility] [place] 15259390867 4 MG Orally every 8 hrs Active 1 tablet as needed Rytary ND 56629976598 48.75-195 MG Orally four times a day (qid) Active 2 capsule Phenazopyridine HCl ND 77143359761 100 MG Orally Three t imes a day Mar 20, 2018 Mar 22, 2018 Active 2 tablets after meal s Cefdinir ND 08878878848 300 MG Orally bid Mar 20, 2018 Acti ve as directed Midodrine HCl ND 68624255147 5 MG Orally daily Acti ve 1 tablet 1 q am; 2 tabs q noon; 1 tab q pm Cipro ND 03309275108 250 MG Orally every 12 hrs Mar 17 9 Mar 22, 2018 Active 1 tablet Vital Signs Date/Time: Mar 20, 2018 BMI 18.88 Index Weight 110 lbs Height 64 in Cardiac Monitoring Heart Rate 68 /min Blood Pressure Diastolic 74 mm Hg Blood Pressure Systolic 122 mm Hg Results No Known Results Summary Purpose [employer] Submission
--- OUTSIDE RECORDS SUMMARY | 2019-08-04 01:24 | XMS REPORT ---
Author Author Candice Taylor Organization [employer] Address Unknown Phone Unavailable Care Team Providers Care Sql Analyst Name Role Phone Atiya Taylor CP Unavailable [...] Instructions Start Date End Date Status Dosage Amoxil NDC 0 250 MG Orally three times a day (tid) De c 2017Mar 02, 2018 Active 1 capsule Results No Known Results Summary Purpose [employer] Submission
--- OUTSIDE RECORDS SUMMARY | 2019-08-04 01:24 | XMS REPORT | Summary of Care ---
Author Author [facility] Organization [facility] Address Unknown Phone Unavailable Care Team Providers Care Fire Lieutenant Marine Name Role Phone Haydee Landaverde PCP Encounter [facility] [email or web address](FIN) [phone] Date(s): 11/26/17 - 12/25/[address] [address] [phone] Encounter Diagnosis Parkinson's disease (Final) - 12/30/17 Discharge Disposition: Home or Self Care Attending Physician: Judith Woodall MD Referring Physician: Judith Wooadll MD Vital Signs Most recent to 1 oldest [Reference Range]: Blood Pressure 103/60 mmHg [90-140/60-90 mmHg] (11/26/17 10:03 AM) Peripheral Pulse 78 bpm Rate [60-100 bpm] (11/26/17 10:03 AM) Problem List No data available for this [...]
[2019-08-04] MEDS ORDERED: ASPIRIN 81 MG CHEW TAB PO ONE (01:30)
[2019-08-04 01:59] LABS: BASOPHILS # (AUTO) 0.1 (0.0-0.1); BASOPHILS % 0.8 % (0.0-1.0); EOSINOPHILS # (AUTO) 0.2 (0.0-0.4); EOSINOPHILS % 2.6 % (0.0-6.0); HEMATOCRIT 43.8 % (34.2-44.1); HEMOGLOBIN 14.4 g/dL (12.0-16.0); LYMPHOCYTES # (AUTO) 1.6 (1.0-3.2); LYMPHOCYTES % 21.4 % (18.0-39.1); MEAN CORPUSCULAR HEMOGLOBIN 29.8 pg (28-32); MEAN CORPUSCULAR HGB CONC 32.9 g/dL (31-35); MEAN CORPUSCULAR VOLUME 90.7 fL (81-99); MONOCYTES # (AUTO) 0.6 (0.2-0.8); MONOCYTES % 7.7 % (4.4-11.3); NEUTROPHILS # (AUTO) 5.1 (2.1-6.9); PLATELET COUNT 251 x10e3/uL (140-360); RED BLOOD COUNT 4.83 x10e6/uL (3.6-5.1); RED CELL DISTRIBUTION WIDTH 12.8 % (11.7-14.4)
[2019-08-04 02:29] LABS: ALBUMIN 3.9 g/dL (3.5-5.0); ALBUMIN/GLOBULIN RATIO 1.4 (0.8-2.0); ALKALINE PHOSPHATASE 99 IU/L (40-150); ANION GAP 14.8 mmol/L (8-16); BLOOD UREA NITROGEN 17 mg/dL (7-26); BUN/CREATININE RATIO 22 (6-25); CALCIUM 9.1 mg/dL (8.4-10.2); CARBON DIOXIDE 24 mmol/L (22-29); CHLORIDE 106 mmol/L (98-107); CREATINE KINASE 71 IU/L (29-168); CREATININE, SERUM 0.78 mg/dL (0.57-1.11); EST GLOMERULAR FILTRATION RATE > 60 ML/MIN (60-); GLUCOSE 108 mg/dL (74-118); POTASSIUM 3.8 mmol/L (3.5-5.1); SODIUM 141 mmol/L (136-145)
[2019-08-04 02:31] LABS: ALANINE AMINOTRANSFERASE < 6 IU/L (0-55)
--- NOTE | 2019-08-04 02:38 | Diagnostic Imaging Report ---
EXAMINATION: CHEST SINGLE (PORTABLE) INDICATION: Chest pain. COMPARISON: Chest radiograph 03/06/2019. FINDINGS: The patient's chin somewhat obscures the left lung apex. TUBES and LINES: None. LUNGS: Lungs are mildly hyperinflated. There is no evidence of pneumonia or pulmonary edema. PLEURA: No pleural effusion or pneumothorax. HEART AND MEDIASTINUM: The cardiomediastinal silhouette is unremarkable. BONES AND SOFT TISSUES: No acute osseous lesion. Soft tissues are unremarkable. UPPER ABDOMEN: No free air under the diaphragm. IMPRESSION: No acute thoracic abnormality. Signed by: Dr. Vianca Gee MD on 08/04/2019 2:35 AM
--- NOTE | 2019-08-04 02:44 | Emergency Department Note ---
History of Present Illnes History of Present Illness Chief Complaint: Respiratory History of Present Illness This is a 73 year old female arrived to the ED with intermittent SOB and chest pain. Historian: Patient Arrival Mode: Car Onset (how long ago): hour(s) Radiation: non-radiation Severity: mild Onset quality: sudden Context: recent illness Relieving factors: none Exacerbating factors: none, movement Past Medical/Family History Physician Review I have reviewed the patient's past medical and family history. Any updates have been documented here. Past Medical History Recent Fever: No Clinical Suspicion of Infectio: No New/Unexplained Change in Ment: No Past Medical History: Kidney Stones, UTI's, Osteoarthritis Other Medical History: Parkinsons Past Surgical History: Hysterectomy, Back Surgery Other Surgery: Back sx Social History Smoking Cessation: Unknown if ever smoked Counseling Performed: No Alcohol Use: None Any Illegal Drug Use: No TB Exposure/Symptoms: No Physically hurt or threatened: No Other Last Tetanus: UNKNOWN Any Pre-Existing Lines (PICC,: No Is patient up to date on immun: No Last Flu: unk Last Pneumovax: unk Review of Systems Review of Systems Constitutional: no symptoms EENTM: no symptoms Cardiovascular: chest pain Respiratory: dyspnea, dyspnea on exertion Gastrointestinal: no symptoms Genitourinary: no symptoms Musculoskeletal: no symptoms Neurological: no symptoms Psychological: no symptoms Endocrine: no symptoms Hematological/Lymphatic: no symptoms Review of other systems All other systems reviewed and negative. Physical Exam Related Data Allergies: Uncoded Allergies: SULFA (Allergy, Unknown, 08/04/19) Triage Vital Signs Vital Signs Date Time Temp Pulse Resp B/P (MAP) Pulse Ox O2 Delivery O2 Flow Rate FiO2 08/04/19 01:20 98.7 82 24 164/114 99 Vital signs reviewed: Yes Physical Exam CONSTITUTIONAL Constitutional: well-developed, well-nourished HENT HENT: normocephalic, atraumatic, oropharynx clear/moist, nose normal HENT L/R: left ext ear normal, right ext ear normal EYES Eyes: PERRL, conjunctivae normal NECK Neck: ROM normal PULMONARY Pulmonary: effort normal, respiratory distress CARDIOVASCULAR Cardiovascular: regular rhythm, heart sounds normal, capillary refill normal, normal rate GASTROINTESTINAL Abdominal: soft, nontender, bowel sounds normal GENITOURINARY Genitourinary: exam deferred SKIN Skin: warm, dry MUSCULOSKELETAL Musculoskeletal: ROM normal NEUROLOGICAL Neurological: alert, oriented x 3, no gross motor or sensory deficits PSYCHOLOGICAL Psychological: mood/affect normal, judgement normal Results Laboratory Result Diagram: 08/04/19 0120 08/04/19 0120 Laboratory Laboratory Tests Test 08/04/19 01:20 White Blood Count 7.56 x10e3/uL (4.8-10.8) Red Blood Count 4.83 x10e6/uL (3.6-5.1) Hemoglobin 14.4 g/dL (12.0-16.0) Hematocrit 43.8 % (34.2-44.1) Mean Corpuscular Volume 90.7 fL (81-99) Mean Corpuscular Hemoglobin 29.8 pg (28-32) Mean Corpuscular Hemoglobin Concent 32.9 g/dL (31-35) Red Cell Distribution Width 12.8 % (11.7-14.4) Platelet Count 251 x10e3/uL (140-360) Neutrophils (%) (Auto) 67.0 % (38.7-80.0) Lymphocytes (%) (Auto) 21.4 % (18.0-39.1) Monocytes (%) (Auto) 7.7 % (4.4-11.3) Eosinophils (%) (Auto) 2.6 % (0.0-6.0) Basophils (%) (Auto) 0.8 % (0.0-1.0) Neutrophils # (Auto) 5.1 (2.1-6.9) Lymphocytes # (Auto) 1.6 (1.0-3.2) Monocytes # (Auto) 0.6 (0.2-0.8) Eosinophils # (Auto) 0.2 (0.0-0.4) Basophils # (Auto) 0.1 (0.0-0.1) Absolute Immature Granulocyte (auto 0.04 x10e3/uL (0-0.1) Sodium Level 141 mmol/L (136-145) Potassium Level 3.8 mmol/L (3.5-5.1) Chloride Level 106 mmol/L (98-107) Carbon Dioxide Level 24 mmol/L (22-29) Anion Gap 14.8 mmol/L (8-16) Blood Urea Nitrogen 17 mg/dL (7-26) Creatinine 0.78 mg/dL (0.57-1.11) Estimat Glomerular Filtration Rate > 60 ML/MIN (60-) BUN/Creatinine Ratio 22 (6-25) Glucose Level 108 mg/dL (74-118) Calcium Level 9.1 mg/dL (8.4-10.2) Total Bilirubin 0.3 mg/dL (0.2-1.2) Aspartate Amino Transf (AST/SGOT) 7 IU/L (5-34) Alanine Aminotransferase (ALT/SGPT) < 6 IU/L (0-55) Alkaline Phosphatase 99 IU/L (40-150) Creatine Kinase 71 IU/L (29-168) Total Protein 6.6 g/dL (6.5-8.1) Albumin 3.9 g/dL (3.5-5.0) Globulin 2.7 g/dL (2.3-3.5) Albumin/Globulin Ratio 1.4 (0.8-2.0) Lab results reviewed: Yes Imaging Imaging results reviewed: Yes Impressions IMPRESSION: No acute thoracic abnormality. Procedures 12 Lead ECG Interpretation Irrigation Manager: Interpreted by ED physician Prior COMMERCIAL DOOR INSTALLER tracings: reviewed Rhythm: sinus rhythm Rate: normal QRS axis: normal ST segments normal: Yes T waves normal: Yes Clinical Impression: normal ECG Critical Care Time Subsequent provider I assumed direction of critical care for this patient from another provider of m y specialty. Assessment & Plan Assessment & Plan Final Impression: (1) Chest pain Assessment & Plan CBC, CMP, CARDIAC MARKES, BNP CXR ADMIT Depart Disposition: ADMITTED Last Vital Signs Date Time Temp Pulse Resp B/P (MAP) Pulse Ox O2 Delivery O2 Flow Rate FiO2 08/04/19 01:52 76 25 152/103 100 08/04/19 01:20 98.7 Home Meds Reported Medications Cefdinir (OMNICEF) 300 Mg Capsule, 300 MG PO BID, #10 03/07/19 Dicyclomine Hcl (DICYCLOMINE HCL) 20 Mg Tablet, 20 MG PO Q6H for 10 Days, TAB 03/07/19 Ondansetron (ZOFRAN ODT) 4 Mg Tab.rapdis, 4 MG Q6H, TAB 03/28/16 Tramadol Hcl (ULTRAM) 50 Mg Tablet, 50 MG PO Q8H, TAB 03/28/16 [Rytary Er] No Conflict Check, 2 TAB PO Q6H 03/28/16 Tizanidine Hcl (TIZANIDINE HCL) 4 Mg Tablet, 4 MG PO QID 05/25/12 Medications in the ED Aspirin 81 mg PRN ONCE PO ; Start 08/04/19 at 01:30; Stop 08/04/19 at 01:31 BILL HERNANDES DO August 04, 2019 02:28
--- OUTSIDE RECORDS SUMMARY | 2019-08-04 02:50 | XMS REPORT | Continuity of Care Document ---
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2017 [facility] Tamiflu 1 capsule Orally Active 75 mg Orally once a day ebranious 04/04/2017 [facility] Midodrine HCl 1 tablet Orally Active 5 MG Orally Three times a day Adarsh 06/20/2016 [facility] Midodrine HCl 1 tablet 1 q am; 2 tabs q noon; 1 tab q pm Orally Active 5 MG Orally daily Ghebranious [facility] Rytary 2 capsule Orally Active 48.75-195 MG Orally fou r times a day (qid) Ghebranious [facility] Tizanidine HCl 1 tablet as nee ded Orally Active 4 MG Orally every 8 hrs Rejiebranious [facility] Midodrine HCl 1 tablet Orally Active 5 MG Orally Three times a day Tyrell White [facility] Rytary 2 [...] Info Not Available Adverse Reaction Active 03/20/2018 [facility] No Known [...] Status Source [facility] [id number] Amir Jose C 11/26/2017 12/26/2017 [facility] [id number] Amir Jose C 01/25/2018 01/25/2018 [facility] Procedures [...]
--- OUTSIDE RECORDS SUMMARY | 2019-08-04 02:51 | XMS REPORT ---
Author Author [facility] t Organization [facility] Address [address] [place] [address] Phone Unavailable Care Team Providers Care Bulk Folder Name Role Phone JUDITH NUNEZ MD PCP Antonio HERNANDES Attphys Unavailable ULICES SUAREZ Attphys Unavailable Jose Carlos NAM Attphys Unavailable LEXI BARAJAS Attphys Unavailable SELENE WOOTEN Attphys Unavailable Shonda Nunez Attphys ULICES SUAREZ Admdayron Unavailable Payers Payer Name Policy Type Policy Number Effective Date Expiration Date Antonio chatterjee [facility] [id number] 2018 00:00:00 [facility] Medicare A & B [id number] 2012 00:00:00 [facility] [id number] 2018 00:00:00 [facility] Medicare A & B [id number] 2012 00:00:00 [facility] AAR [id number] 2016 00:00:00 [facility] Medicare A & B [id number] 2012 00:00:00 [facility] Problems Condition Name Condition Details Condition Category Status Onset Date Resolution Date Last Treatment Date Treating Clinician Comments Source Parkinson's disease Parkinson disease Problem Active [facility] Syncope Syncope Problem Active [facility] Allergies, Adverse Reactions, Alerts Allergy Name Allergy Type Status Severity Reaction(s) Onset Date Inacti ve Date Treating Clinician Comments Source Sulfa (Sulfonamide Antibiotics) DA Active U 2019-04-14 00 :00:00 [facility] Sulfa (Sulfonamide Antibiotics) DA Active U 2018-03-06 00 :00:00 [facility] No Known Contrast Allergies DA Active U 2005-01-19 00:00: 00 [facility] No Known Drug Allergies DA Active U 2005-01-19 00:00:00 [facility] No Known Food Allergies DA Active U 2005-01-19 00:00:00 [facility] Medications Ordered Medication Name Filled Medication Name Start Date Stop Da te Current Medication? Ordering Clinician Indication Dosage Frequency Signature (SIG) Comments Components Source Cefdinir (Omnicef) 300 Mg Capsule Cefdinir (Omnicef) 300 Mg Capsule Yes 300 Twice A Day [facility] Dicyclomine Hcl 20 Mg Tablet Dicyclomine Hcl 20 Mg Tablet Y es 20 Every 6 Hours [facility] Ondansetron (Zofran Odt) 4 Mg Tab.rapdis Ondansetron ( Zofran Odt) 4 Mg Tab.rapdis Yes 4 Every 6 Hours [facility] Rytary Er Rytary Er Yes 2 Every 6 Hours [facility] Tizanidine Hcl 4 Mg Tablet Tizanidine Hcl 4 Mg Tablet Yes 4 Four Times Daily [facility] Tramadol Hcl (Ultram) 50 Mg Tablet Tramadol Hcl (Ultram) 50 Mg Tablet Yes 50 Every 8 Hours [facility] Carbidopa/Levodopa (Carbidopa-Levo Er 25-100 Tab) 1 Ea ch Tablet.er, 1 Tab Oral Carbidopa/Levodopa (Carbidopa-Levo Er 25-100 Tab) 1 Each Tablet.er, 1 Tab Oral 2016-04-07 00:00:00 No 1 Daily [facility] Levofloxacin (Levaquin) 500 Mg Tablet, 500 Mg Oral Lev ofloxacin (Levaquin) 500 Mg Tablet, 500 Mg Oral 2016-04-07 00:00:00 No 500 D [facility] Ranitidine Hcl (Zantac) 150 Mg Tablet, 150 Mg Oral Ran itidine Hcl (Zantac) 150 Mg Tablet, 150 Mg Oral 2016-03-28 00:00:00 No 150 D [facility] Tramadol Hcl 100 Mg Tab.er.24h, 100 Mg Oral Tramadol H cl 100 Mg Tab.er.24h, 100 Mg Oral 2013-03-29 00:00:00 No 100 As Needed [facility] Procedures Procedure Date / Time Performed Performing Clinician [facility] e Computed tomography of brain without radiopaque contrast 201 11-26-20 00:00:00 OKSANA RAMIREZ [facility] Computed tomography of cervical spine without contrast 03-06 00:00:00 OKSANA RAMIREZ [facility] Computed tomography of abdomen and pelvis with contrast 2018 00:00:00 ASHLEY NAM [facility] X-ray of chest, two views 2018-06-08 00:00:00 LEXI BARAJAS [facility] Encounters Start Date/Time End Date/Time En[facility] Ad[facility] ID Source 2019-03-06 03:54:00 2019-03-07 13:10:00 Discharged Inpatient (obs) 1 ULICES SUAREZ [facility] [id number] [facility] 2019-01-02 19:52:00 2019-01-02 23:16:00 Departed Emergency Room 1 ASHLEY NAM [facility] [id number] [facility] 2018-06-08 16:06:00 2018-06-08 16:06:00 Registered Clinic 3 LEXI CROWDER [facility] [id number] [facility] 2018-05-05 16:46:00 2018-05-05 16:46:00 Outpatient [facility] [id number] [facility] 2018-04-02 12:53:00 2018-04-02 12:53:00 Registered Clinic 3 SELENE WOOTEN [facility] [id number] [facility] 2018-03-20 15:00:00 2018-03-20 15:00:00 Outpatient [facility] [id number] [facility] 2018-03-17 21:24:00 2018-03-17 21:24:00 Outpatient [facility] [id number] [facility] 2018-03-02 19:05:00 2018-03-02 19:05:00 Outpatient [facility] [id number] [facility] 2018-02-27 15:26:00 2018-02-27 15:26:00 Outpatient [facility] [id number] [facility] 2018-02-20 12:55:00 2018-02-20 12:55:00 Outpatient [facility] [id number] [facility] 2018-02-16 16:15:00 2018-02-16 16:15:00 Outpatient [facility] [id number] [facility] 2018-01-25 08:00:00 2018-01-25 08:00:00 Outpatient Judith Black [facility] [id number] [facility] 2017-11-26 08:00:00 2017-12-25 23:59:00 Outpatient GhJudith alcaraz [facility] [id number] [facility] 2017-11-21 12:45:00 2017-11-21 12:45:00 Outpatient [facility] [id number] [facility] 2017-11-15 22:32:00 2017-11-16 02:12:00 Departed Emergency Room 1 ASHLEY NAM [facility] [id number] [facility] 2017-11-10 10:15:00 2017-11-10 10:15:00 Outpatient [facility] [id number] [facility] 2017-08-19 14:30:00 2017-08-19 14:30:00 Outpatient [facility] [id number] [facility] 2017-08-18 16:20:00 2017-08-18 16:20:00 Outpatient [facility] [id number] [facility] 2017-07-29 15:46:00 2017-07-29 15:46:00 Outpatient [facility] [id number] [facility] 2017-06-27 10:45:00 2017-06-27 10:45:00 Outpatient [facility] [id number] [facility] 2017-06-10 12:00:00 2017-06-10 12:00:00 Outpatient [facility] [id number] [facility] 2017-05-13 11:15:00 2017-05-13 11:15:00 Outpatient [facility] [id number] [facility] 2017-04-04 12:16:00 2017-04-04 12:16:00 Outpatient [facility] [id number] [facility] 2016-07-31 15:43:00 2016-07-31 15:43:00 Outpatient [facility] [id number] [facility] 2016-07-11 10:15:00 2016-07-11 10:15:00 Outpatient [facility] [id number] [facility] 2016-07-08 16:25:00 2016-07-08 16:25:00 Outpatient [facility] [id number] [facility] 2016-06-26 13:27:00 2016-06-26 13:27:00 Outpatient [facility] [id number] [facility] 2016-06-20 10:45:00 2016-06-20 10:45:00 Outpatient [facility] [id number] [facility] 2016-06-14 10:00:00 2016-06-14 10:00:00 Outpatient [facility] [id number] [facility] Results Test Description Test Time Test Comments Results Result Comments Source CHEST SINGLE (PORTABLE) 2019-08-04 02:32:00 [facility] [address] [place] [address] Patient Name: MANJU PEARSON MR #: [id number] : 1945 Age/Sex: 73/F Req #: [id number] Adm Physician: Ordered by: BILL HERNANDES DO Report #: [id number] Location: ER Room/Bed: Procedure: [id number] DX/CHEST SINGLE (PORTABLE) Exam Date: 08/04/19 Exam Time: 0140 REPORT STATUS: Signed EXAMINATION: CHEST SINGLE (PORTABLE) INDICATION: Chest pain. COMPARISON: Chest radiograph 03/06/2019. FINDINGS: The patient's chin somewhat obscures the left lung apex. TUBES and LINES: None. LUNGS: Lungs are mildly hy perinflated. There is no evidence of pneumonia or pulmonary edema. PLEURA: No pleural effusion or pneumothorax. HEART AND MEDIASTINUM: The cardiomediastinal silhouette is unremarkable. BONES AND SOFT TISSUES: No acute osseous lesion. Soft tissues are unremarkable. UPPER ABDOMEN: No free air under the diaphragm. IMPRESSION: No acute thoracic abnormality. Signed by: Dr. Aziza Turner MD on 08/04/2019 2:35 AM Dictated By: AZIZA TURNER MD 4 Transcribed By: SAVITA on 08/04/19234 COPY TO: BILL HERNANDES DO B-TYPE NATRIURETIC PEPTIDE 2019-04-14 18:44:00 Test Item B-TYPE NATRIURETIC PEPTIDE (test code = BNP) 79.5 PG/ML 0-100 N - XR HIP W/PEL UNI 2+V [id number] 18:43:00 FAX: Nahun Martinez MD [phone] [place]: St: REG Name: MANJU DIXON [facility] : [birth year] Age/S: 73/F [address] [place] [address] Unit #: [id number] Loc: [place] [address] Phys: Nahun Cox MD Acct: [id number] Dis Date: Status: REG ER PHONE #: [phone] Exam Date: 04/14/20191835 FAX #: [phone] Reason: acute injury EXAMS: CPT CODE: [id number] XR HIP W/[place] UNI 2+[place] [address] Clinical Indication: Acute injury. Comparison: None available. Impression: AP view of the pelvis and lateral view of the left hip. No acute fracture or dislocation. Degenerative changes of the lumbosacral spine. Soft tissues are unre markable. SL: [id number] El ectronically Signed by Kirsten Camarillo on 020 at 1843 Reported and signed by: Bob dawn M.D. CC: Nahun Cox MD Technologist: RT Leticia(R) Trnscrd Date/Time/By: 04/14/2019 (1842) : By: [email or web address] Orig Print D/T: S: 04/14/2019 (0405) PAGE 1 Signed Report [id number] 18:13:00* Test Item Value Reference Range Interpretation Comments D-DIMER (test code = DDIMER) 1361 ng/mlFEU <=500 HH THROMBOSIS AND/OR PULMONARY EMBOLISM AND THE CLINICAL CUT- OFF VALUE FOR EXCLUSION (500 ng/mL FEU) OF THESE CONDITIONSIS VALIDATED BY THE STOCK BUYER OF THE METHOD. A NEGATIVE D-DIMER RESULT WHEN COMBINED WITH A CLINICALASSESSMENT OF LOW PRETEST PROBABILITY HAS BEEN SHOWN TO HAVEA HIGH NEGATIVE PREDICTIVE VALUE OF DVT OR PE. D-DIMER VALUES >500 ng/mL FEU ARE NOT DIAGNOSTIC FOR DVT, PEor DIC WITHOUT OTHER CONFIRMATORY TESTS AND APPROPRIATECLINICAL EUALUATIONS. CBC W/AUTO [id number] 18:12:00* Test Item Value Reference Range Interpretation [...] (test code = MDIFF) NO COMPREHENSIVE METABOLIC [id number] 18:09:00* Test Item Value Reference Range Interpretation [...] TOTAL (test code = ALKP) IUnit/L 20-125 [id number] 18:09:00* Test Item Value Reference Range Interpretation Comments TROPONIN-I (test code = TROPI) < 0.015 ng/mL 0.000-0.045 N Negative: <= 0.045 Positive: >= 0.046 Correlation with serial results, other cardiac markers andclinical findings is necessary to determine the clinicalsignificance of this result. Results using different methodologies should not be comparedto one another as quantitative results may vary by method. COMPREHENSIVE METABOLIC [id number] 18:09:00* Test Item Value Reference Range Interpretation [...] code = ALKP) 88 IUnit/L 20-125 N [id number] 18:09:00* Test Item Value Reference Range Interpretation Comments TROPONIN-I (test code = TROPI) < 0.015 ng/mL 0.000-0.045 N Negative: <= 0.045 Positive: >= 0.046 Correlation with serial results, other cardiac markers andclinical findings is necessary to determine the clinicalsignificance of this result. Results using different methodologies should not be comparedto one another as quantitative results may vary by method. - XR NECK SOFT [id number] 17:50:00 FAX: Nahun Martinez MD [phone] [place]: St: REG Name: MANJU DIXON [facility] : [birth year] Age/S: 73/F [address] [place] [address] Unit #: [id number] Loc: [place] [address] Phys: Nahun Cox MD Acct: [id number] Dis Date: Status: REG ER PHONE #: [phone] Exam Date: 04/14/2019 173 FAX #: [phone] Reason: neck tightness/sob EXAMS: CPT CODE: [id number] XR NECK SOFT TISSUE 21580 Clinical Indication: Neck tightness, shortness of breath. Comparison: None available. Impres kaleigh: Soft tissue neck, 2 views submitted on 4 images. Airway is patent . Epiglottis is normal. Prevertebral soft tissues are normal. Of the visualized osseous structures, no acute fracture or subluxation. SL: [id number] Electronically Sign ed by Kirsten Camarillo on 04/14/2019 at 1750 Reported and signed by: Bob Camarillo M.D. CC: Nahun Cox MD Technologist: RT Leticia(R) Trnscrd Antonio ate/Time/By: 04/14/2019 (175) : By: [email or web address] Orig Print D/T: S: 03/18 (0861) PAGE 1 Signed Repor t - XR CHEST 2 [id number] 17:46:00 FAX: Nahun Martinez MD [phone] [place]: St: REG Name: MANJU DIXON [facility] : [birth year] Age/S: 73/F [address] [place] [address] Unit #: [id number] Loc: [place] [address] Phys: Nhaun Cox MD Acct: [id number] Dis Date: Status: REG ER PHONE #: [phone] Exam Date: 04/14/2019 173 FAX #: [phone] Reason: SOB EXAMS: CPT CODE: [id number] XR CHEST 2 V 41322 Chest, 2 views dated 04/14/2019. HISTORY: Shortness [...] acute cardiopulmon izzy disease. SL: 131 at 1746 Reported and signed by: Flo meek M.D. CC: Nahun Cox MD Technologist: Carly Fu RT(R) Trnscrd Date/Time/By: 04/14/2019 (5885) : By: [email or web address] Orig Print D /T: S: 04/14/2019 (5805) PAGE 1 S igned Report Magnesium [id number] 06:30:00* Test Item Value Reference Range Interpretation Comments Magnesium Level (test code = 10414-7) 2.0 1.3-2.1 [facility] Oyibm5614-90-25 05:41:00* Test Item Value Reference Range Interpretation Comments Sodium Level (test code = 2951-2) 141 136-145 [facility]assium [id number] 05:41:00* Test Item Value Reference Range Interpretation Comments Potassium Level (test code = 2823-3) 3.6 3.5-5.1 [facility] ClubChloride [id number] 05:41:00* Test Item Value Reference Range Interpretation Comments Chloride Level (test code = 2075-0) 110 98-107 [facility] ClubCarbon Dioxide [id number] 05:41:00* Test Item Value Reference Range Interpretation Comments Carbon Dioxide Level (test code = 2028-9) 24 22-29 [facility] ClubAnion [id number] 05:41:00* Test Item Value Reference Range Interpretation Comments Anion Gap (test code = 75102-1) 10.6 8-16 [facility] ClubBlood Urea [id number] 05:41:00* Test Item Value Reference Range Interpretation Comments Blood Urea Nitrogen (test code = 3094-0) 19 7-26 [facility] ClubCreatinine2019-12-22 05:41:00* Test Item Value Reference Range Interpretation Comments Creatinine (test code = 2160-0) 0.80 0.57-1.11 [facility] ClubBUN/Creatinine Mtrqo8100-98-23 05:41:00* Test Item Value Reference Range Interpretation Comments BUN/Creatinine Ratio (test code = 3097-3) 24 6-25 [facility] ClubEstimat Glomerular Filtration Rate 2019-03-07 05:41:00* Test Item Value Reference Range Interpretation Comments Estimat Glomerular Filtration Rate (test code = 054298510) > 60 >60 Ranges were taken from the National Kidney Disease Education Program and the [facility] Kid[facility] Foundation literature.Reference ranges:60 or greater: Ydqsul01-98 ( for 3 consecutive months): Chronic kidney disease 15 or less: Kidney failureBaylor Scott & [facility] Center [facility] ClubGlucose Mhwxg7021-57-10 05:41:00* Test Item Value Reference Range Interpretation Comments Glucose Level (test code = KCN6386) 98 74-118 [facility] ClubCalcium Viibd0973-30-41 05:41:00* Test Item Value Reference Range Interpretation Comments Calcium Level (test code = 12026-3) 8.6 8.4-10.2 [facility] ClubTotal [id number] 05:41:00* Test Item Value Reference Range Interpretation Comments Total Bilirubin (test code = 1975-2) 0.3 0.2-1.2 [facility] ClubAspartate Amino Transf (AST/SGOT) 2019-03-07 05:41:00* Test Item Value Reference Range Interpretation Comments Aspartate Amino Transf (AST/SGOT) (test code = Aspartate Amino Transf (AST/SGOT)) 8 5-34 [facility] ClubAlanine Aminotransferase (ALT/SGPT) 2019-03-07 05:41:00* Test Item Value Reference Range Interpretation Comments Alanine Aminotransferase (ALT/SGPT) (test code = 1742-6) < 6 0-55 [facility] Qbtcgfh6583-87-13 05:41:00* Test Item Value Reference Range Interpretation Comments Total Protein (test code = 2885-2) 5.3 6.5-8.1 [facility] ClubAlbumin2019-12-22 05:41:00* Test Item Value Reference Range Interpretation Comments Albumin (test code = 1751-7) 3.3 3.5-5.0 [facility] ClubGlobulin2019-12-22 05:41:00* Test Item Value Reference Range Interpretation Comments Globulin (test code = 31979-1) 2.0 2.3-3.5 [facility] ClubAlbumin/Globulin [id number] 05:41:00 * Test Item Value Reference Range Interpretation Comments Albumin/Globulin Ratio (test code = 1759-0) 1.7 0.8-2.0 [facility] ClubAlkaline Kuxdinhxdvp4530-47-41 05:41:00* Test Item Value Reference Range Interpretation Comments Alkaline Phosphatase (test code = 6768-6) 71 40-150 [facility] ClubWhite Blood Gplna0469-44-37 05:19:00* Test Item Value Reference Range Interpretation Comments White Blood Count (test code = 6690-2) 9.30 4.8-10.8 [facility] ClubRed Blood [id number] 05:19:00* Test Item Value Reference Range Interpretation Comments Red Blood Count (test code = 789-8) 4.21 3.6-5.1 [facility] ClubHemoglobin2019-12-22 05:19:00* Test Item Value Reference Range Interpretation Comments Hemoglobin (test code = 06430-6) 12.4 12.0-16.0 [facility] ClubHematocrit2019-12-22 05:19:00* Test Item Value Reference Range Interpretation Comments Hematocrit (test code = 4544-3) 38.5 34.2-44.1 [facility] ClubMean Corpuscular Kcqezw6432-67-22 05:19:00* Test Item Value Reference Range Interpretation Comments Mean Corpuscular Volume (test code = 787-2) 91.4 81-99 [facility] ClubMean Corpuscular Ebocjvolqy6099-14-10 05:19:00* Test Item Value Reference Range Interpretation Comments Mean Corpuscular Hemoglobin (test code = 785-6) 29.5 28-32 [facility] ClubMean Corpuscular Hemoglobin Concent 2019-03-07 05:19:00* Test Item Value Reference Range Interpretation Comments Mean Corpuscular Hemoglobin Concent (test code = 786-4) 32.2 31-35 [facility] ClubRed Cell Distribution [id number] 05:19:00* Test Item Value Reference Range Interpretation Comments Red Cell Distribution Width (test code = 91720-5) 12.9 11.7 -14.4 [facility] ClubPlatelet Kpvmd0396-81-72 05:19:00* Test Item Value Reference Range Interpretation Comments Platelet Count (test code = 777-3) 204 140-360 [facility] ClubNeutrophils (%) (Auto)2019-03-07 05:19:00 * Test Item Value Reference Range Interpretation Comments Neutrophils (%) (Auto) (test code = 30233-1) 77.3 38.7-80.0 [facility] ClubLymphocytes (%) (Auto)2019-03-07 05:19:00 * Test Item Value Reference Range Interpretation Comments Lymphocytes (%) (Auto) (test code = 736-9) 13.8 18.0-39.1 [facility] ClubMonocytes (%) (Auto)2019-03-07 05:19:00* Test Item Value Reference Range Interpretation Comments Monocytes (%) (Auto) (test code = 5905-5) 6.7 4.4-11.3 [facility] ClubEosinophils (%) (Auto)2019-03-07 05:19:00 * Test Item Value Reference Range Interpretation Comments Eosinophils (%) (Auto) (test code = 713-8) 1.3 0.0-6.0 [facility] ClubBasophils (%) (Auto)2019-03-07 05:19:00* Test Item Value Reference Range Interpretation Comments Basophils (%) (Auto) (test code = 706-2) 0.4 0.0-1.0 [facility] ClubIM GRANULOCYTES %2019-03-07 05:19:00* Test Item Value Reference Range Interpretation Comments IM GRANULOCYTES % (test code = IM GRANULOCYTES %) 0.5 0.0- 1.0 [facility] ClubNeutrophils # (Auto)2019-03-07 05:19:00* Test Item Value Reference Range Interpretation Comments Neutrophils # (Auto) (test code = 751-8) 7.2 2.1-6.9 [facility] ClubLymphocytes # (Auto)2019-03-07 05:19:00* Test Item Value Reference Range Interpretation Comments Lymphocytes # (Auto) (test code = 28250-9) 1.3 1.0-3.2 [facility] ClubMonocytes # (Auto)2019-03-07 05:19:00* Test Item Value Reference Range Interpretation Comments Monocytes # (Auto) (test code = 742-7) 0.6 0.2-0.8 [facility] ClubEosinophils # (Auto)2019-03-07 05:19:00* Test Item Value Reference Range Interpretation Comments Eosinophils # (Auto) (test code = 711-2) 0.1 0.0-0.4 [facility] ClubBasophils # (Auto)2019-03-07 05:19:00* Test Item Value Reference Range Interpretation Comments Basophils # (Auto) (test code = 704-7) 0.0 0.0-0.1 [facility] ClubAbsolute Immature Granulocyte (auto 2019-03-07 05:19:00* Test Item Value Reference Range Interpretation Comments Absolute Immature Granulocyte (auto (el t code = Absolute Immature Granulocyte (auto) 0.05 0-0.1 [facility] ClubBlood [id number] 02:57:00* Test Item Value Reference Range Interpretation Comments Blood Culture (test code = [id number]) NO GROWTH AFTER 24 HOURS [facility] ClubCreatine Kinase [id number] 18:21:00* Test Item Value Reference Range Interpretation Comments Creatine Kinase MB (test code = 74593-7) 6.70 0-5.0 [facility] ClubTroponin [id number] 18:21:00* Test Item Value Reference Range Interpretation Comments Troponin I (test code = BVO8060) < 0.001 0-0.300 [facility] ClubCreatine Njvrut9917-85-40 18:15:00* Test Item Value Reference Range Interpretation Comments Creatine Kinase (test code = 2157-6) 223 29-168 [facility] ClubThyroid Stimulating Hormone (TSH) 2019-03-06 10:28:00* Test Item Value Reference Range Interpretation Comments Thyroid Stimulating Hormone (TSH) (test code = 16791-9) 1.112 0.350-4.940 [facility] ClubTriglycerides Tswgr5198-00-60 10:03:00* Test Item Value Reference Range Interpretation Comments Triglycerides Level (test code = 2571-8) 75 0-149 [facility] ClubCholesterol Uhdyw7481-11-95 10:03:00* Test Item Value Reference Range Interpretation Comments Cholesterol Level (test code = 2093-3) 145 0-199 Less than 200 mg/dL Low Wztz858 - 239 mg/dL Borderline Bgxv575 m g/dl and greater High Risk [facility] ClubLDL Hdpuawtwcxq0402-15-76 10:03:00* Test Item Value Reference Range Interpretation Comments LDL Cholesterol (test code = 2089-1) 87 60-130 [facility] ClubHDL Emrdyvhfivd2146-35-38 10:03:00* Test Item Value Reference Range Interpretation Comments HDL Cholesterol (test code = 2085-9) 43 40-60 [facility] ClubCholesterol/HDL Epdos3521-37-18 10:03:00 * Test Item Value Reference Range Interpretation Comments Cholesterol/HDL Ratio (test code = 9830-1) 3.4 3.0-3.6 [facility] ClubHemoglobin A1c Oowtdta6691-05-10 10:00:00 * Test Item Value Reference Range Interpretation Comments Hemoglobin A1c Percent (test code = Hemoglobin A1c Percent) 5.7 4.0-7.0 [facility] ClubUrine FYO9373-56-84 04:09:00* Test Item Value Reference Range Interpretation Comments Urine WBC (test code = 5821-4) 0-5 0-5 [facility] ClubUrine RYY8103-08-11 04:09:00* Test Item Value Reference Range Interpretation Comments Urine RBC (test code = 37304-0) 0-5 0-5 [facility] ClubUrine Hzywqhsn4962-32-91 04:09:00* Test Item Value Reference Range Interpretation Comments Urine Bacteria (test code = 54769-9) MODERATE NONE [facility] ClubUrine Epithelial Wwcgm1473-41-59 04:09:00 * Test Item Value Reference Range Interpretation Comments Urine Epithelial Cells (test code = 60324-1) FEW NONE [facility] ClubUrine Amorphous Lomhjfpi1177-88-72 04:09:00* Test Item Value Reference Range Interpretation Comments Urine Amorphous Sediment (test code = 8246-1) MANY FEW [facility] CenterPE[facility] AP 1-2 MESBC9058-99-15 04:01:00 [place] [address] Patient Name: MANJU PEARSON MR #: [id number] : 1945 Age/Sex: 73/F Req #: [id number] Adm Physician: ULICES SUAREZ MD Ordered by: OKSANA RAMIREZ MD Report #: [id number] Location: [facility] Room/Bed: [place] [address] Procedure: [id number] DX/PELVIS AP 1-2 VIEWS Exam Date: 03/06/19 Exam Time : 023 REPORT STATUS: Signed PEL VIS AP 1-2 [...] OKSANA RAMIREZ MD CHEST SINGLE (PORTABLE)2019-03-06 04:00:00 [place] [address] Patient Name: MANJU PEARSON MR #: [id number] : 1945 Age/Sex: 73/F Req #: [id number] Adm Physician: ULICES SUAREZ MD Ordered by: OKSANA RAMIREZ MD Report #: [id number] Location: [facility] Room/Bed: [place] [address] Procedure: [id number] DX/CHEST SINGLE (PORTABLE) Exam Date: 03/06/19 Exam [...] COPY TO: OKSANA RAMIREZ MD B-Type Natriuretic Riwrwxw5188-02-94 03:57:00* Test Item Value Reference Range Interpretation Comments B-Type Natriuretic Peptide (test code = 52879-4) 149.4 0-100 [facility] CenterCT CERV[facility] SPINE ZJ9297-05-21 03:48:00 [place] [address] Patient Name: MANJU PEARSON MR #: [id number] : 1945 Age/Sex: 73/F Req #: [id number] Adm Physician: ULICES SUAREZ MD Ordered by: OKSANA RAMIREZ MD Report #: [id number] Location: [facility] Room/Bed: [place] [address] Procedure: [id number] CT/CT CERVICAL SPINE WO Exam Date: 03/06/19 [...] 0 354 Transcribed By: SAVITA on 03/06/19 0678 COPY TO: OKSANA RAMIREZ MD Prothrombin Pwuj4168-99-40 03:45:00* Test Item Value Reference Range Interpretation Comments Prothrombin Time (test code = 5902-2) 13.4 11.9-14.5 [facility] ClubProthromb Time International Ratio 2019-03-06 03:45:00* Test Item Value Reference Range Interpretation Comments Prothromb Time International Ratio (test code = 6301-6) 0.97 Oral Anticoagulant Therapy INR Values:1. Low Intensity Therapy 1.5 - 2.02 . Moderate Intensity Therapy 2.0 - 3.03. High Intensity Therapy(1) 2.5 - 3. 54. High Intensity Therapy(2) 3.0 - 4.05. Panic Value INR > 5.0 [facility] ClubActivated Partial Thromboplast Time 2019-03-06 03:45:00* Test Item Value Reference Range Interpretation Comments Activated Partial Thromboplast Time (test code = 78438-9) 25.3 23.8-35.5 [facility] ClubUrine Homuy0927-50-43 03:45:00* Test Item Value Reference Range Interpretation Comments Urine Color (test code = 5778-6) YELLOW YELLOW [facility] ClubUrine Xwuvavy9877-85-87 03:45:00* Test Item Value Reference Range Interpretation Comments Urine Clarity (test code = 34895-7) SL CLOUDY CLEAR [facility] ClubUrine Specific Fcmjmro6239-27-21 03:45:00 * Test Item Value Reference Range Interpretation Comments Urine Specific [place] (test code = 5811-5) 1.020 1.010-1.02 5 [facility] ClubUrine rN9486-28-85 03:45:00* Test Item Value Reference Range Interpretation Comments Urine pH (test code = 38841-0) 7 5-7 [facility] ClubU[facility] Leukocyte Xgiktljb5062-51-11 03:45:00* Test Item Value Reference Range Interpretation Comments Urine Leukocyte Esterase (test code = 88767-9) NEGATIVE NEGATIV E [facility] ClubUrine Ucleejh8853-60-83 03:45:00* Test Item Value Reference Range Interpretation Comments Urine Nitrite (test code = 62113-7) NEGATIVE NEGATIVE [facility] ClubUrine Lomrtqp7016-43-17 03:45:00* Test Item Value Reference Range Interpretation Comments Urine Protein (test code = 74349-6) NEGATIVE NEGATIVE [facility] ClubUrine Glucose (UA)2019-03-06 03:45:00* Test Item Value Reference Range Interpretation Comments Urine Glucose (UA) (test code = 86739-4) NEGATIVE NEGATIVE [facility] ClubUrine Qgsvool6367-26-48 03:45:00* Test Item Value Reference Range Interpretation Comments Urine Ketones (test code = 95262-7) NEGATIVE NEGATIVE [facility] ClubUrine Ixlfqhpuayxo0225-32-83 03:45:00* Test Item Value Reference Range Interpretation Comments Urine Urobilinogen (test code = 71082-0) 0.2 0.2-1 [facility] ClubUrine Vredmvect8518-02-20 03:45:00* Test Item Value Reference Range Interpretation Comments Urine Bilirubin (test code = 1977-8) NEGATIVE NEGATIVE [facility] ClubUrine Zwdec7516-22-68 03:45:00* Test Item Value Reference Range Interpretation Comments Urine Blood (test code = 60493-2) NEGATIVE NEGATIVE [facility] ClubCT BRAIN UZ9234-99-72 03:44:00 [place] [address] Patient Name: MANJU PEARSON MR #: [id number] : 1945 Age/Sex: 73/F Req #: [id number] Adm Physician: Ordered by: OKSANA RAMIREZ MD Report #: [id number] Location: Room/Bed: Procedure: [id number] C T/CT BRAIN WO Exam Date: 03/06/19 Exam Time: 235 REPORT STATUS: Signed EXAMINATION: Head CT without contrast. HISTORY:Syncope, fall. COMPARISON:Repo rt of CT brain from 05/25/2012, prior images not available for comparison at [facility] time of interpretation. TECHNIQUE: Multidetector axial images [...] COPY TO: OKSANA RAMIREZ MD Lactic Acid Smxtx1137-70-63 03:37:00* Test Item Value Reference Range Interpretation Comments Lactic Acid Level (test code = Lactic Acid Level) 0.6 0.5- 2.0 [facility]/PELVIS V9388-18-14 22:42:00 [facility] [address] [place] [address] Patient Name: MANJU PEARSON MR #: [id number] : 1945 Age/Sex: 73/F Req #: [id number] Adm Physician: Ordered by: ASHLEY NAM MD Report #: [id number] Location: ER Room/Bed: Procedure: [id number] CT/CT [...] is below the limits set by the [facility] Protocol Committee (RPC). FINDINGS: LINES and TUBES: [...] Level (test code = 1798-8) 44 25-125 [facility] ClubLipase2019-10-19 21:39:00* Test Item Value Reference Range Interpretation Comments Lipase (test code = 3040-3) 11 8-78 [facility] ClubCHEST 2 LLIDP3608-54-00 17:27:00 [place] [address] Patient Name: MANJU PEARSON MR #: [id number] : 1945 Age/Sex: 72/F Req #: [id number] Adm Physician: Ordered by: LEXI BARAJAS MD Report #: [id number] Location: [facility] Room/Bed: Procedure: [id number] DX/ CHEST 2 VIEWS Exam Date: 06/08/18 Exam Time: 1700 REPORT STATUS: Signed EXAMINATION: CHEST 2 VIEWS INDICATION: [id number] 1700 COUGH COM PARISON: Abdomen and pelvis [...] 27 COPY TO: LEXI BARAJAS RENAL RETROPERITONEAL SXPM5989-28-55 14:02:00 [place] [address] Patient Name: MANJU PEARSON MR #: [id number] : 1945 Age/Sex: 72/F Req #: [id number] Adm Physician: Ordered by: SELENE WOOTEN MD Report #: [id number] Location: Room/Bed: Procedure: [id number] US/US RENAL RETROPERITONEAL COMP Exam Date: 04/02/18 [...] 2:03 PM Dictated By: YULIYA SALMERON MD 1403 Transcribed By: SAVITA on 04/02/18 1403 COPY TO: SELENE WOOTEN MD CT ABDOMEN/PELVIS [id number] 00:37:00 [place] [address] Patient Name: MANJU PEARSON MR #: [id number] : 1945 Age/Sex: 71/F Req #: [id number] Adm Physician: Ordered by: ASHLEY NAM MD Report #: [id number] Location: ER Room/Bed: Procedure: CT/CT ABDOMEN/PELVIS W Exam Date: Exam Time: REPORT STATUS: Sulema d EXAM: CT ABDOMEN AND PELVIS with IV CONTRAST DATE: 11/15/2017 10:35 PM Yohannes e stamp on Exam: 0023 hours INDICATION: Left-sided [...]
[2019-08-04] MEDS ORDERED: HYDRALAZINE HCL 20 MG/ML VIAL IV ONE (03:00)
--- NOTE | 2019-08-04 03:10 | NUR ---
COVID-18 SWAB OBTAINED AT THIS TIME. PT TOLERATED WELL. NAD NOTED.
[2019-08-04] MEDS ORDERED: HYDRALAZINE HCL 20 MG/ML VIAL IV PRN (03:15)
--- NOTE | 2019-08-04 03:24 | NUR ---
One time dose of rytary administered to patient. Patient states she must take it at this time. Patient tolerated medication administration well.
[2019-08-04 04:00] VITALS: BP 151/104
[2019-08-04 04:30] VITALS: BP 151/104
--- NOTE | 2019-08-04 05:47 | NUR ---
bp rechecked at time 142/62, p 70, resp 17, o2 on ra 98%. no ss of distress noted. call ross within reach.
--- NOTE | 2019-08-04 05:54 | NUR ---
pt crying out. assisted pt to bedside commode. unable to urinate crying out. pt assisted back to bed. no urine noted. bladder scan reveal 243cc. spoke to dr frances barnes regarding urinary retention. new order received.
--- NOTE | 2019-08-04 05:57 | NUR ---
pt straight cath. 250cc yellow urine drained. pt tolerated well. pt stated she felt relief. no distress noted. call ross within reach.
[2019-08-04 07:30] VITALS: BP 114/70
[2019-08-04 07:45] VITALS: BP 114/70
[2019-08-04 10:47] LABS: CREATINE KINASE 67 IU/L (29-168)
[2019-08-04 12:00] VITALS: BP 110/65
[2019-08-04] MEDS ORDERED: TIZANIDINE HCL 4 MG TAB PO SCH (13:00)
--- NOTE | 2019-08-04 15:43 | Diagnostic Imaging Report ---
X-ray abdomen KUB History: abdominal pain Comparison: none Findings: Study submitted on 2 images. Nonobstructive bowel gas pattern. Copious amounts of fecal matter in the colon. No calculi. No significant disease of the visualized skeleton except for degenerative changes. Lung bases clear Impression: No acute process seen on this exam. Likely constipation. Signed by: Nolan Rivera MD on 08/04/2019 3:39 PM
[2019-08-04 16:00] VITALS: BP 119/80
[2019-08-04] MEDS ORDERED: NITROFURANTOIN MACROCRYSTALS 100 MG CAP PO SCH (17:00)
[2019-08-04] MEDS ORDERED: RYTARY PO SCH (18:00)
[2019-08-04 18:38] LABS: CREATINE KINASE MB 7.6 ng/mL (0-5.0)
--- NOTE | 2019-08-04 19:11 | NUR ---
PATIENT DISCHARGED HOME AND ALL DISCHARGE INSTRUCTIONS PROVIDED TO PATIENT AND , INFORMED THAT PATIENT NEEDS OTC MAG CITRATE FOR CONSTIPATION PER MD, VERBALIZED UNDERSTANDING.
== END 2019-08-04 19:12 | disposition home or self-care (01) ==
LOC: ER 01:19 → ERHOLD 02:42 → IMCU 04:07
DX: R07.9 Chest pain, unspecified (principal); Z11.59 Encounter for screening for other viral diseases; Z88.2 Allergy status to sulfonamides; Z09 Encounter for follow-up examination after completed treatment for conditions other than malignant neoplasm
CPT/HCPCS: 36415; 71045; 74018; 80053; 82550; 82553; 83880; 84484; 85025; 87635; 93005; 97116; 97161; 99284; G0378; J0360

== ENCOUNTER 2020-01-29 09:07 | Emergency (ER) | payer MEDICARE ==
[~2020-01-29] VITALS: Ht 315 cm; Wt 46.3 kg
[2020-01-29] MEDS ORDERED: HYDROCODONE/APAP 5MG-325MG TAB PO ONE (09:15)
--- NOTE | 2020-01-29 09:30 | Emergency Department Note ---
History of Present Illnes History of Present Illness Chief Complaint: Extremity Trauma/Pain History of Present Illness This is a 74 year old female PATIENT BROUGHT IN BY DAUGHTER. C/O OF RIGHT ARM/WRIST PAIN. FRACTURE TO WRIST 6 DAYS AGO, PLACED IN CAST [address] PENA (ORTHO) CALLED IN TRAMADOL LAST NIGHT BUT SHE IS UNABLE TO TAKE THAT MEDICATION SECONDARY TO HER HEART. POSITIVE PULSE, CAP REFILL <3 SEC. Historian: Patient, Family Member Arrival Mode: Car Patrol Mother Required: No Onset (how long ago): day(s) (4) Location: RIGHT FOREARM Quality: PAIN Radiation: Reports non-radiation Severity: moderate Onset quality: gradual Timing of current episode: constant Progression: worsening Chronicity: new Context: Reports trauma/injury Relieving factors: none Exacerbating factors: none Associated symptoms: Reports denies other symptoms Treatments prior to arrival: NSAID (IBUPROFEN) Past Medical/Family History Physician Review I have reviewed the patient's past medical and family history. Any updates have been documented here. Past Medical History Recent Fever: No Clinical Suspicion of Infectio: No New/Unexplained Change in Ment: No Past Medical History: Osteoarthritis Other Medical History: parkinsons Past Surgical History: Hysterectomy, T&A, Back Surgery Other Surgery: RIGHT ARM FRACTURE colporrhaphy Social History Smoking Cessation: Former smoker Counseling Performed: No Alcohol Use: None Any Illegal Drug Use: No TB Exposure/Symptoms: No Physically hurt or threatened: No Family History Family history of heart diseas: No Other Last Tetanus: UNKNOWN Any Pre-Existing Lines (PICC,: No Review of Systems Review of Systems Constitutional: Reports no symptoms EENTM: Reports no symptoms Cardiovascular: Reports no symptoms Respiratory: Reports no symptoms Gastrointestinal: Reports no symptoms Genitourinary: Reports no symptoms Musculoskeletal: Reports as per HPI Integumentary: Reports no symptoms Neurological: Reports no symptoms Psychological: Reports no symptoms Endocrine: Reports no symptoms Hematological/Lymphatic: Reports no symptoms Physical Exam Related Data Allergies: Uncoded Allergies: SULFA (Allergy, Unknown, 08/04/19) Triage Vital Signs Vital Signs Date Time Temp Pulse Resp B/P (MAP) Pulse Ox O2 Delivery O2 Flow Rate FiO2 01/29/20 09:15 98.4 78 18 143/88 100 Room Air Vital signs reviewed: Yes Physical Exam CONSTITUTIONAL Constitutional: Present well-developed, Present well-nourished HENT HENT: Present normocephalic, Present atraumatic, Present oropharynx clear/moist, Present nose normal HENT L/R: Present left ext ear normal, Present right ext ear normal EYES Eyes: Reports PERRL, Reports conjunctivae normal NECK Neck: Present ROM normal PULMONARY Pulmonary: Present effort normal, Present breath sounds normal CARDIOVASCULAR Cardiovascular: Present regular rhythm, Present heart sounds normal, Present capillary refill normal, Present normal rate GASTROINTESTINAL Abdominal: Present soft, Present nontender, Present bowel sounds normal GENITOURINARY Genitourinary: Present exam deferred SKIN Skin: Present warm, Present dry MUSCULOSKELETAL Musculoskeletal: Present other (RIGHT ARM LONG-ARM WITH THUMB SPICA - NORMAL DISTAL CAP REFILL AND FROM OF ALL FINGERS WITHOUT PAIN, POINTS TO MID FOREARM WHEN ASKED WHERE SHE HURTS) NEUROLOGICAL Neurological: Present alert, Present oriented x 3, Present no gross motor or sensory deficits PSYCHOLOGICAL Psychological: Present mood/affect normal, Present judgement normal Assessment & Plan Medical Decision Making MDM HERE FOR PAIN CONTROL FROM RECENT FOREARM FX, ORTHO CALLED IN TRAMADOL BUT SHE CANNOT TAKE BECAUSE OF S/E'S OF PALPITATIONS/TACHYCARDIA. I LOOKED PT [place] ON [place] - OVERDOSE SCORE OF 180, HAD TRAMADOL #60 FILLED 06/24/2019, TYL #3 (#9) FILLED LAST ON 08/26/2018. WILL GIVE A NORCO 5 HERE, RX FOR #16 TYL #3 Reassessment Reassessment DC HOME, TYL #3 (#16) UD, F/U PCP AND ORTHO Assessment & Plan Final Impression: (1) Pain Depart Disposition: HOME, SELF-CARE Last Vital Signs Date Time Temp Pulse Resp B/P (MAP) Pulse Ox O2 Delivery O2 Flow Rate FiO2 01/29/20 09:15 98.4 78 18 143/88 100 Room Air Home Meds Reported Medications Cefdinir (OMNICEF) 300 Mg Capsule, 300 MG PO BID, #10 03/07/19 Dicyclomine Hcl (DICYCLOMINE HCL) 20 Mg Tablet, 20 MG PO Q6H for 10 Days, TAB 03/07/19 Tramadol Hcl (ULTRAM) 50 Mg Tablet, 50 MG PO Q8H, TAB 03/28/16 [Rytary Er] No Conflict Check, 2 TAB PO Q6H 03/28/16 Tizanidine Hcl (TIZANIDINE HCL) 4 Mg Tablet, 4 MG PO QID 3/11/13 Medications in the ED Acetaminophen/ Hydrocodone Bitart 1 ea ONCE ONCE PO ; Start 01/29/20 at 09:15; Stop 01/29/20 at 09:16; Status UNV OKSANA RAMIREZ MD Jan 29, 2020 09:30
--- NOTE | 2020-01-29 09:33 | NUR ---
DR. RAMIREZ SPOKE WITH PATIENT AND DAUGHTER. SHE WILL FOLLOW UP WITH HER ORTHO SURGEON AND PAIN MANAGMENT
--- OUTSIDE RECORDS SUMMARY | 2020-01-29 09:44 | XMS REPORT | Clinical Summary ---
Author Author [facility] Organization [place] [facility] Address Unknown Phone Unavailable Care Team Providers Care Web Marketing Intern Name Role Phone Asked, No Pcp PCP Unavailable Allergies Comments Active Allergy Reactions Severity Noted Date Sulfa (Sulfonamide Hives 01/26/2020 Antibiotics) Medications End Date Status Medication Sig Dispensed Refills Start Date Active Rytary 48.75-195 mg per TK 2 CS PO 0 capsule QID FOR 86 0 DAYS 02/15/2020 Active traMADoL (ULTRAM) 50 mg Take 1 tablet 30 tablet 0 tabletIndications: acute (50 mg total) 0 pain by mouth every 6 (six) hours as needed for moderate pain for up to 20 days .acute pain. Active Problems No known active problems Encounters Care Team Description Date Type Specialty Moo Mead MD Other closed fracture of distal end of r ight ulna, initial encounter (Primary Dx) 01/26/2020 Office Visit Orthopedic Surgery Moo Mead MD Arrived 01/26/2020 Hospital Radiology Encounter Yara Hermosillo MA 01/26/2020 Orders Only Orthopedic Surgery Yara Hermosillo MA Right wrist pain (Primary Dx) 01/25/2020 Orders Only Orthopedic Surgery 01/25/2020 Travel 01/20/2020 Travel after 01/28/2019 Medical History Medical History Date Comments Parkinson disease (HCC) Social History Date Tobacco Use Types Packs/Day Years Used Never Smoker Smokeless Tobacco: Never Used Drinks/Week oz/Week Comments Alcohol Use Never Alcohol Habits Answer Date Recorded How often do you have a drink containing alcohol? Never 01/26/2020 How many drinks containing alcohol do you have on Not aske d 01/26/2020 a typical day when you are drinking? How often do you have six or more drinks on one Never 01/26/2020 occasion? Sex Assigned at Date Recorded Not on file Date Recorded COVID-19 Exposure Response 01/25/2020 11:31 AM METAL DRILL OPERATOR In the last month, have you been in contact with No / Unsure someone who was confirmed or suspected to have Coronavirus / COVID-19? Last Filed Vital Signs Reading Time Taken Comments Vital Sign - - Blood Pressure - - Pulse - - Temperature - - Respiratory Rate - - Oxygen Saturation - - Inhaled Oxygen Concentration 49.9 kg (110 lb) 01/26/2020 9:09 AM METAL DRILL OPERATOR Weight 162.6 cm (5' 4") 01/26/2020 9:09 AM METAL DRILL OPERATOR Height 18.88 01/26/2020 9:09 AM METAL DRILL OPERATOR Body Mass Index Plan of Treatment Care Team Description Date Type Specialty Moo Mead MD 2019 [facility] [address] [place], [place] [id number] 02/24/2020 Office Visit Orthopedic Surgery Health Maintenance Due Date Last Done Comments BREAST CANCER SCREENING 12/15/1997 COLONOSCOPY SCREENING 12/15/1997 SHINGLES VACCINES (#1) 12/15/1997 65+ PNEUMOCOCCAL VACCINE 12/15/2012 (1 of 1 - PPSV23) INFLUENZA VACCINE 10/16/2019 Procedures Comments Procedure Name Priority Date/Time Associated Diag nosis XR FOREARM 2 VW RIGHT Routine 01/26/2020 Right wr ist pain 9:25 AM METAL DRILL OPERATOR XR UPPER EXTREMITY Routine 01/13/2020 EXTERNAL STUDY 8:49 AM CDT after 01/28/2019 Results * XR Forearm 2 Vw Right (01/26/2020 9:25 AM METAL DRILL OPERATOR) Specimen Narrative Performed At [facility] Xrays: The x-rays were ordered and pers onally reviewed by me. 2 views of the right forearm Reason for exam: Right forearm fracture Impression: Right ulnar shaft fracture with increased displacement from the prior x-rays Performing Organization Address City/State/ZIP Code P joey Number [facility] [address] [place] [address] * XR Upper Extremity External Study (01/13/2020 8:49 AM CDT) Specimen Narrative Performed At This exam was not acquired at a Christian facility an d has not been [facility] interpreted by a Christian Provider. The exam was imported into our imaging system. Performing Organization Address City/State/ZIP Code P joey Number [facility] [address] [place] [address] after 01/28/2019 Insurance Type Payer Benefit Subscriber ID Effective Phone Address Plan / Dates Group Medicare MEDICARE MEDICARE [id number] 2012-P JOB, PART A AND resent [place] B Commercial AAR AAR [id number] 2019-P SUPPLEMENT resent Advance Directives For more information, please contact: [phone] Patient Cattle Feeder Explanation Type Date Recorded Advance Directives, Living Will and Medical Power of Hammer Fitter
--- OUTSIDE RECORDS SUMMARY | 2020-01-29 09:44 | XMS REPORT | Continuity of Care Document ---
Author Author MANJU [place] [employer] Address Unknown Phone Unavailable Care Team Providers Care Printer'S Assistant Name Role Phone [employer] Unavailable Un available Problems Problem [...] 500 mg Orally [facility] Tamiflu 1 capsule Orally Active 75 mg Orally once a day ebranious 04/04/2017 [facility] Midodrine HCl 1 tablet Orally Active 5 MG Orally Three times a day Adarsh 06/20/2016 [facility] Midodrine HCl 1 tablet 1 q am; 2 tabs q noon; 1 tab q pm Orally Active 5 MG Orally daily Ghebranious [facility] Rytary 2 capsule Orally Active 48.75-195 MG Orally fou r times a day (qid) Ghebranious [facility] Tizanidine HCl 1 tablet as nee ded Orally Active 4 MG Orally every 8 hrs Rejiebranious [facility] Midodrine HCl 1 tablet Orally Active 5 MG Orally Three times a day Tyrell White [facility] Rytary 2 [...] Info Not Available Adverse Reaction Active 03/20/2018 [facility] No Known [...] Status Source [facility] [id number] Amir Jose C 11/26/2017 12/26/2017 [facility] [id number] Amir Jose C 01/25/2018 01/25/2018 [facility] Procedures [...]
--- OUTSIDE RECORDS SUMMARY | 2020-01-29 09:45 | XMS REPORT | Continuity of Care Document ---
Author Author [facility] t Organization [facility] Address [address] [place] [address] Phone Unavailable Care Team Providers Care Terrazzo Finisher Helper Name Role Phone MAYRA VERA MD AMIR PCP Luis Mead MD Attphys [phone] Yara Hermosillo MA Attphys Unavailable YOUNG, SOUHEIL Attphys Unavailable ULICES SUAREZ Attphys Unavailable Jose Carlos NAM Attphys Unavailable LEXI BARAJAS Attphys Unavailable SELENE WOOTEN Attphys Unavailable Shonda Woodall Amipenelope Attphys YOUNG, SOUHEIL Admphys Unavailable KILLCELESTINO, ULICES Admphys Unavailable Payers Payer Name Policy Type Policy Number Effective Date Expiration Date Antonio sen MEDICAREMEDICARE PART A AND [id number] 2012-PresentHOUAntonio HERNANDEZ NDMedicare [id number] 2012 00:00:00 Job JACOBSENPAARP [id number] 2019-PresentCommercial [id number] 2019 00:00:00 Job VENTURA 2019 00:00:00 LI jacome [facility] Medicare A & B NA 2012 00:00:00 [facility] Condition Name Condition Details Condition Category Status Onset Date Resolution Date Last Treatment Date Treating Clinician Comments Source G20 G20 Active 12/25/2017 [facility] Diagnosis Act nika 2017-12-25 08:00:00 2017-12-25 11:20:00 M vandana Childress Parkinson's disease Parkinson disease Problem Active [facility] Syncope Syncope Problem Active [facility] Chest pain Problem Active [facility] Underweight Unde rweight Active Problem 05/06/2018 [facility] Problem Active 03:04:57 [facility] [place] HTN (hypertension), benign HTN (hypertension), benign Active Problem 05/06/2018 [facility] Problem Active 2018-05-06 03:04:57 [facility] ana rosa [facility] Constipation, unspecified constipation type Constipation, unspecified constipation type Active Problem 05/06/2018 [facility] Problem Active 03:04:57 [facility] [place] Neuropathy involving both lower extremities Neuropathy involving both lower extremities Active Problem 05/06/2018 [facility] Problem Active 2018-05-06 03:04:57 [facility] Sacral back pain Sacr al back pain Active Diagnosis 06/20/2017 [facility] Diagnosis Active 2017-06-20 02:04:05 [facility] Pain in right leg Pain in right leg Active Diagnosis 06/20/2017 [facility] Diagnosis Active 2017-06-20 02:04:05 [facility] [place] Encounter to discuss test results Encounter to discuss test results Active Diagnosis 08/28/2017 [facility] Diagnosis Active 2017-08-28 02:05:16 Jose Ramirezann At risk for falling At r isk for falling Active Diagnosis 08/28/2017 [facility] Diagnosis Active 2017-08-28 02:05:16 Jose Ramirezann Breast cancer screening [facility] cancer screening Active Diagnosis 08/28/2017 [facility] Diagnosis Active 2017-08-28 02:05:16 [facility] [place] Idiopathic hypotension Idio pathic hypotension Active Diagnosis 11/14/2017 [facility] Diagnosis Active 2017-11-14 02:02:01 Jose Childress Dysuria Dysu karolyn Active Diagnosis 04/09/2018 [facility] Diagnosis Active 2018-04-09 03:05:41 [facility] Urinary tract infection without hematuria, site unspec ified Urinary tract infection without hematuria, site unspecified Active Diagnosis 04/09/2018 [facility] Diagnosis Active 2018-04-09 03:05:41 [facility] [place] Pain of left lower extremity P ain of left lower extremity Active Diagnosis 12/01/2017 [facility] Diagnosis Active 2017-12-01 02:01:05 [facility] Fever, unspecified fever cause Fever, unspecified fever cause Active Diagnosis 12/01/2017 [facility] Diagnosis Active 2017-12-01 02:01:05 [facility] [place] Pain of left hip joint Pain of left hip joint Active Diagnosis 12/01/2017 [facility] Diagnosis Active 2017-12-01 02:01:05 [facility] [place] Syncope and collapse Sync ope and collapse Active Diagnosis 06/22/2016 [facility] Diagnosis Active 2016-06-22 02:02:17 [facility] [place] Weight loss Weig ht loss Active Diagnosis 06/22/2016 [facility] Diagnosis Active 2016-06-22 02:02:17 [facility] BMI less than 19,adult BMI less than 19,adult Active Diagnosis 06/19/2016 [facility] Diagnosis Active 2016-06-19 02:03:12 [facility] [place] Skin pallor Skin pallor Active Diagnosis 06/19/2016 [facility] Diagnosis Active 2016-06-19 02:03:12 [facility] [place] Breast cancer screening [facility] cancer screening Active Diagnosis 06/19/2016 [facility] Diagnosis Active 2016-06-19 02:03:12 [facility] Weakness of both lower extremities Weakness of both lower extremities Active Diagnosis 06/19/2016 [facility] Diagnosis Active 2016-06-19 02:03:12 [facility] [place] Hypotension, unspecified hypotension type Hypotension, unspecified hypotension type Active Diagnosis 07/13/2016 [facility] Diagnosis Active 2016-07-13 02:01:44 [facility] [place] Cataract of both eyes, unspecified cataract type Cataract of both eyes, unspecified cataract type Active Diagnosis 07/13/2016 [facility] Diagnosis Active 2016-07-13 02:01:44 [facility] Parkinson's disease Park inson's disease 12/31/2017 07/14/2018 [facility] Problem 2017-12-31 04:58:10 2018-07-14 11:32:20 2 11:32:20 Jose Childress Allergies, Adverse Reactions, Alerts Allergy Name Allergy Type Status Severity Reaction(s) Onset Date Inacti ve Date Treating Clinician Comments Source Sulfa (Sulfonamide Antibiotics) Propensity to adverse reactions to drug Active Hives 2020-01-26 00:00:00 [facility] SULFA Allergy to substance Active 2019-08-04 00:00:00 [facility] Sulfa (Sulfonamide Antibiotics) DA Active U 2019-04-14 00 :00:00 [facility] N.K.D.A. N.K.Antonio.A. Active Info Not Available 2018-03-20 00:00:00 [facility] Sulfa (Sulfonamide Antibiotics) DA Active U 2018-03-06 00 :00:00 [facility] No Known Contrast Allergies DA Active U 2005-01-19 00:00: 00 [facility] No Known Drug Allergies DA Active U 2005-01-19 00:00:00 [facility] No Known Food Allergies DA Active U 2005-01-19 00:00:00 [facility] No Known Medication Allergies No Known Medication Allergies Active [facility] Social History Social Habit Start Date Stop Date Quantity Comments Source Sex Assigned At [facility] Exposure to SARS-CoV-2 (event) Not sure [place] [facility] Tobacco use and exposure 2020-01-26 00:00:00 2020-01-26 00:00:00 Neymar negrete used [facility] Alcohol intake 2020-01-26 00:00:00 2020-01-26 00:00:00 Lifetime non-drinker (finding) [place] [facility] History SDOH Alcohol Frequency 2020-01-26 00:00:00 2020-01-26 00:00:0 0 1 [place] [facility] History SDOH Alcohol Std Drinks 2020-01-26 00:00:00 2020-01-26 00:00: 00 99 [place] [facility] History SDOH Alcohol Binge 2020-01-26 00:00:00 2020-01-26 00:00:00 1 [place] [facility] Social History 2018-01-25 14:00:00 2018-01-25 14:00:00 [facility] Smoking Status Start Date Stop Date Source Never smoker Job fuentes Medications Ordered Medication Name Filled Medication Name Start Date Stop Da te Current Medication? Ordering Clinician Indication Dosage Frequency Signature (SIG) Comments Components Source traMADoL (ULTRAM) 50 mg tablet 2020-01-26 00:00:00 1 23:59:00 Yes acute pain 50mg Q6H Take 1 tablet (50 mg total) by mouth every 6 (six) hours as needed for moderate pain for up to 20 days .acute pain. Job Aguila Rytary 48.75-195 mg per capsule 2019-12-27 00:00:00 Yes TK 2 CS PO QID FOR 86 DAYS Job Aguila Tamiflu 2018-05-05 00:00:00 Yes Atiya White 1 capsule [facility] Midodrine HCl 2018-04-09 03:05:41 Yes Amir Ghebranious 1 tablet 1 q am; 2 tabs q noon; 1 tab q pm [facility] ermann Rytary 2018-04-09 03:05:41 Yes Amir Ghebranious 2 capsule [facility] Tizanidine HCl 2018-04-09 03:05:41 Yes Amir Ghebranious 1 tablet as needed [facility] Phenazopyridine HCl 2018-03-20 00:00:00 Yes Amir Ghebran ious 2 tablets [facility] meals [facility] Cefdinir 2018-03-20 00:00:00 Yes Amir Ghebranious as directed [facility] Cipro 2018-03-17 00:00:00 Yes Amir Ghebranious 1 tablet [facility] Macrobid 2018-03-02 00:00:00 Yes Facundo Tom 1 capsule with food [facility] [place] Diflucan 2018-02-27 00:00:00 Yes Atiya White 1 tablet [facility] Cipro 2018-02-27 00:00:00 Yes Aitya White 1 tablet [facility] Amoxil 2018-02-20 00:00:00 Yes Atiya White 1 capsule [facility] Sulfamethoxazole-Trimethoprim 2018-02-16 00:00:00 Yes Tank Tom 1 tablet [facility] Rytary 2017-12-01 02:01:05 Yes Dilshad Lai 2 capsule [facility] Acetaminophen-Codeine 2017-11-21 00:00:00 Yes Preston Lai 1-2 tablet as needed [facility] Midodrine HCl 2017-07-30 02:07:43 Yes Atiya White 1 tablet [facility] Naproxen 2017-06-10 00:00:00 Yes Amir Ghebranious 1 tablet [facility] Tamiflu 2017-04-04 00:00:00 Yes Amir Ghebranious 1 capsule [facility] Tizanidine HCl 2016-07-13 02:01:44 Yes Yamila Adarsh 1 tablet as needed [facility] Midodrine HCl 2016-06-20 00:00:00 Yes Yamila Adarsh 1 tablet [facility] Cefdinir (Omnicef) 300 Mg CAPSULE Cefdinir (Omnicef) 300 Mg CAPSULE Yes 300 Twice A Day [facility] Dicyclomine Hcl Dicyclomine Hcl Yes 20 Every 6 Hours [facility] Rytary Er Rytary Er Yes 2 Every 6 Hours [facility] Tizanidine Hcl Tizanidine Hcl Yes 4 Four Times Daily [facility] Tramadol Hcl (Ultram) 50 Mg TABLET Tramadol Hcl (Ultram) 50 Mg TABLET Yes 50 Every 8 Hours [facility] Ondansetron (Zofran Odt) 4 Mg TAB.RAPDIS Ondansetron ( Zofran Odt) 4 Mg TAB.RAPDIS 2019-08-04 00:00:00 No 4 Every 6 Hours [facility] Carbidopa/Levodopa (Carbidopa-Levo Er 25-100 Tab) 1 Ea ch TABLET.ER Carbidopa/Levodopa (Carbidopa-Levo Er 25-100 Tab) 1 Each TABLET.ER 2016-04-07 00:00:00 No 1 Daily [facility] Levofloxacin (Levaquin) 500 Mg TABLET Levofloxacin (Levaquin) 50 0 Mg TABLET 2016-04-07 00:00:00 No 500 Daily [facility] Ranitidine Hcl (Zantac) 150 Mg TABLET Ranitidine Hcl (Zantac) 15 0 Mg TABLET 2016-03-28 00:00:00 No 150 Daily [facility] Tramadol Hcl Tramadol Hcl 2013-03-29 00:00:00 No 100 As Needed [facility] Vital Signs Vital Name Observation Time Observation Value Comments Source Body height 2020-01-26 09:09:00 162.6 cm Job Aguila Body weight 2020-01-26 09:09:00 49.896 kg Job Aguila BMI 2020-01-26 09:09:00 18.88 kg/m2 [facility] Body Temperature 2019-08-04 16:00:00 98.3 [degF] [facility] BMI (Body Mass Index) 2019-08-04 05:40:00 17.5 kg/m2 [facility] Weight 2019-08-04 01:20:00 102 [lb_av] [facility] Weight 2018-03-20 21:00:00 [facility] [place] Height 2018-03-20 21:00:00 [facility] Heart Rate 2018-03-20 21:00:00 [facility] [place] Diastolic (mm Hg) 2018-03-20 21:00:00 [facility] [place] Systolic (mm Hg) 2018-03-20 21:00:[facility] [place] Weight 2018-02-16 22:15:00 [facility] [place] Height 2018-02-16 22:15:00 [facility] [place] Heart Rate 2018-02-16 22:15:00 [facility] [place] Diastolic (mm Hg) 2018-02-16 22:15:00 Mem [facility]rial [place] Systolic (mm Hg) 2018-02-16 22:15:00 [facility] [place] Heart Rate 2017-11-26 15:03:00 [facility] [place] Systolic (mm Hg) 2017-11-26 15:03:00 [facility]rie [facility] [place] Diastolic (mm Hg) 2017-11-26 15:03:00 [facility] [place] Diastolic (mm Hg) 2017-11-21 17:45:00 Mem [facility] [place] Systolic (mm Hg) 2017-11-21 17:45:00 [facility] [place] Height 2017-11-21 17:45:00 [facility] Heart Rate 2017-11-21 17:45:00 [facility] [place] Heart Rate 2017-11-10 15:15:00 [facility] Height 2017-11-10 15:15:00 [facility] Weight 2017-08-19 19:30:00 [facility] Height 2017-08-19 19:30:00 [facility] Heart Rate 2017-08-19 19:30:00 [facility] Diastolic (mm Hg) 2017-08-19 19:30:00 Mem [facility]rial [place] Systolic (mm Hg) 2017-08-19 19:30:00 [facility] [place] Weight 2017-06-10 17:00:00 [facility] Height 2017-06-10 17:00:00 [facility] Heart Rate 2017-06-10 17:00:00 [facility] [place] Diastolic (mm Hg) 2017-06-10 17:00:00 Mem orial [place] Systolic (mm Hg) 2017-06-10 17:00:00 [facility]rie [facility] [place] Weight 2017-05-13 17:15:00 [facility] Height 2017-05-13 17:15:00 [facility] Heart Rate 2017-05-13 17:15:00 [facility] [place] Diastolic (mm Hg) 2017-05-13 17:15:00 [facility] [place] Systolic (mm Hg) 2017-05-13 17:15:00 Arie rial [place] Weight 2016-07-11 15:15:00 [facility] [place] Height 2016-07-11 15:15:00 [facility] Heart Rate 2016-07-11 15:15:00 [facility] Diastolic (mm Hg) 2016-07-11 15:15:00 Mem [facility]rial [place] Systolic (mm Hg) 2016-07-11 15:15:00 [facility]rie [facility] [place] Weight 2016-06-20 15:45:00 [facility] Height 2016-06-20 15:45:00 [facility] Heart Rate 2016-06-20 15:45:00 [facility] [place] Diastolic (mm Hg) 2016-06-20 15:45:00 Mem [facility]rial [place] Systolic (mm Hg) 2016-06-20 15:45:00 Arie rial [place] Weight 2016-06-14 15:00:00 [facility] Height 2016-06-14 15:00:00 [facility] [place] Heart Rate 2016-06-14 15:00:00 [facility] Diastolic (mm Hg) 2016-06-14 15:00:00 [facility] [place] Systolic (mm Hg) 2016-06-14 15:00:00 Arie rial [place] Procedures Procedure Date / Time Performed Performing Clinician Sour e XR FOREARM 2 VW RIGHT 2020-01-26 09:25:57 Moo Mead XR UPPER EXTREMITY EXTERNAL STUDY 2020-01-13 08:49:00 Moo Mead Computed tomography of brain without radiopaque contrast 201 11-26-20 00:00:00 [place] [facility] Computed tomography of cervical spine without contrast 03-06 00:00:00 [place] [facility] Computed tomography of abdomen and pelvis with contrast 2018 00:00:00 ASHLEY NAM [facility] Plan of Care Planned Activity Planned Date Details Comments Source Future Scheduled Test 2019-10-16 00:00:00 INFLUENZA VACCINE [code = INFLUENZA VACCINE] [facility] Scheduled Test 2012-12-15 00:00:00 65+ PNEUMOCOCCAL V ACCINE (1 of 1 - PPSV23) [code = 65+ PNEUMOCOCCAL VACCINE (1 of 1 - PPSV23)] [facility] Future Scheduled Test 1997-12-15 00:00:00 BREAST CANCER SCRE ENING [code = BREAST CANCER SCREENING] [facility] Future Scheduled Test 1997-12-15 00:00:00 COLONOSCOPY SCREEN ING [code = COLONOSCOPY SCREENING] [facility] Scheduled Test 1997-12-15 00:00:00 SHINGLES VACCINES (#1) [code = SHINGLES VACCINES (#1)] [facility] Instructions Constipation - Adult [facility] Encounters Start Date/Time End Date/Time En[facility] ID Source 2020-01-26 00:00:00 2020-01-26 00:00:00 Outpatient RELL MEAD [facility] [id number] Job Aguila 2020-01-26 00:00:00 2020-01-26 00:00:00 Outpatient RELL MEAD [facility] [id number] Job Aguila 2020-01-26 00:00:00 2020-01-26 00:00:00 Outpatient RELL MEAD [facility] [id number] Job Aguila 2019-08-04 02:42:00 2019-08-04 19:12:00 Discharged Inpatient (obs) 1 JAMSHID YOUNG [facility] Patients [facility] [id number] [facility] 2019-03-06 02:54:00 2019-03-07 12:10:00 Discharged Inpatient (obs) 1 ULICES SUAREZ [facility] [id number] [facility] 2019-01-02 19:52:00 2019-01-02 23:16:00 Departed Emergency Room 1 ASHLEY NAM [facility] [id number] [facility]. [facility] 2018-06-08 16:06:00 2018-06-08 16:06:00 Registered Clinic 3 LEXI CROWDER [facility] [id number] [facility] 2018-05-05 16:46:00 2018-05-05 16:46:00 Outpatient [facility] [id number] [employer] 2018-04-02 12:53:00 2018-04-02 12:53:00 Registered Clinic 3 SELENE WOOTEN [facility] [id number] [facility] 2018-03-20 15:00:00 2018-03-20 15:00:00 Outpatient [facility] [id number] [employer]Works 2018-03-17 21:24:00 2018-03-17 21:24:00 Outpatient [facility] [id number] [employer] 2018-03-02 19:05:00 2018-03-02 19:05:00 Outpatient [facility] [id number] [employer] 2018-02-27 15:26:00 2018-02-27 15:26:00 Outpatient [facility] [id number] [employer] 2018-02-20 12:55:00 2018-02-20 12:55:00 Outpatient [facility] [id number] [employer] 2018-02-16 16:15:00 2018-02-16 16:15:00 Outpatient [facility] [id number] [employer]Works 2018-01-25 08:00:00 2018-01-25 08:00:00 Outpatient Loraran ioAditi alejandrar Ramsis [facility] [id number] 2017-11-26 08:00:00 2017-12-25 23:59:00 Outpatient Rejiebran ious Amir Marianosis [facility] [id number] 2017-11-21 12:45:00 2017-11-21 12:45:00 [facility]patient [facility] [id number] e[employer]Works 2017-11-15 22:32:00 2017-11-16 02:12:00 Departed Emergency Room 1 ASHLEY NAM [facility] [id number] [facility] 2017-11-10 10:15:00 2017-11-10 10:15:00 [facility] [id number] [employer]Works 2017-08-19 14:30:00 2017-08-19 14:30:00 [facility] [id number] [employer]Works 2017-08-18 16:20:00 2017-08-18 16:20:00 [facility] [id number] [employer]Works 2017-07-29 15:46:00 2017-07-29 15:46:00 [facility] [id number] [employer] 2017-06-27 10:45:00 2017-06-27 10:45:00 [facility] [id number] [employer]Works 2017-06-10 12:00:00 2017-06-10 12:00:00 [facility] [id number] [employer]Works 2017-05-13 11:15:00 2017-05-13 11:15:00 [facility] [id number] eClinicalWorks 2017-04-04 12:16:00 2017-04-04 12:16:00 [facility] [id number] eClinicalWorks 2016-07-31 15:43:00 2016-07-31 15:43:00 [facility] [id number] eClinicalWorks 2016-07-11 10:15:00 2016-07-11 10:15:00 [facility] [id number] [employer]ClinicalWorks 2016-07-08 16:25:00 2016-07-08 16:25:00 Outpatient [facility] [id number] eClinicalWorks 2016-06-26 13:27:00 2016-06-26 13:27:00 Outpatient [facility] [id number] [employer]ClinicalWorks 2016-06-20 10:45:00 2016-06-20 10:45:00 Outpatient [facility] [id number] [employer]ClinicalWorks 2016-06-14 10:00:00 2016-06-14 10:00:00 Outpatient [facility] [id number] [facility] Results Test Description Test Time Test Comments Results Result Comments Source XR Upper Extremity External Study 2020-01-26 08:49:10 This exam was not acquired at a Jewish facility and has not been interpreted by a Jewish Provider. The exam was imported into our imaging system. [facility] Serum or plasma creatine kinase measurement (enzymatic activity/volume) 2019-08-04 17:31:00 Test Item Creatine Kinase (test code = 2157-6) 351 29-168 [facility] plasma creatine kinase MB measurement (mass/volume)2019-08-04 17:31:00* Test Item Value Reference Range Interpretation Comments Creatine Kinase MB (test code = 89620-0) 7.60 0-5.0 [facility] measurement by highly sensitive enzyme [id number] 17:31:00* Test Item Value Reference Range Interpretation Comments Troponin I (test code = 44411-2) 0.002 0-0.300 [facility] ([facility]UB)2019-08-04 15:37:00 [facility] [address] [address] Patient Name: MANJU PEARSON MR #: [id number] : 1945 Age/Sex: 73/F Req #: [id number] Adm Physician: JAMSHID YOUNG MD Ordered by: JAMSHID YOUNG MD Report #: [id number] Location: [facility] Room/Bed: [place] [address] Procedure: DX/ABDOMEN- 1VIEW (KUB) Exam Date: 08/04/19 Exam Time: 1454 REPORT STATUS: Signed X-ray abdomen KUB History: abdominal pain Comparison: none Findings: Study subm itted on 2 images. Nonobstructive bowel gas pattern. Copious amounts of fecal matter in the colon. No calculi. No significant disease of the visualized skel eton except for degenerative changes. Lung bases clear Impression: No acu te process seen on this exam. Likely constipation. Signed by: Nolan Mishra MD on 08/04/2019 3:39 PM Dictated By: NOLAN MISHRA MD 153 Transcribed By: SAVITA on 07/16 1539 COPY TO: JAMSHID YOUNG MD CHEST SINGLE (PORTABLE) 2019-08-04 02:32:[address] [place] [address] Patient Name: MANJU PEARSON MR #: [id number] : 1945 Age/Sex: 73/F Req #: [id number] Adm Physician: Ordered by: BILL HERNANDES DO Report #: [id number] Location: ER Room/Bed: Procedure: DX/CHEST SINGLE (PORTABLE) Exam Date: 08/04/19 Exam Time: 014 0 REPORT STATUS: Signed EXAMINAT ION: CHEST SINGLE (PORTABLE) INDICATION: Chest pain. COMPARISON: Chest radiograph 03/06/2019. FINDINGS: The patient's chin somewhat obscures the left lung apex. TUBES and LINES: None. LUNGS: Lungs a re mildly hyperinflated. There is no evidence of pneumonia or pulmonary edema . PLEURA: No pleural effusion or pneumothorax. HEART AND MEDIASTINUM : The cardiomediastinal silhouette is unremarkable. BONES AND SOFT TIS SUES: No acute osseous lesion. Soft tissues are unremarkable. UPPER ABD OMEN: No free air under the diaphragm. IMPRESSION: No acute thoracic abnormality. Signed by: Dr. Aziza Turner MD on 08/04/2019 2:35 AM Dic tated By: AZIZA TURNER MD 023 5 Transcribed By: SAVITA on 08/04/19 0235 COPY TO: BILL HERNANDES DO Blood leukocytes automated count (number/volume)2019-08-04 01:20:00* Test Item Value Reference Range Interpretation Comments White Blood Count (test code = 6690-2) 7.56 4.8-10.8 [facility] automated count (number/volume)2019-08-04 01:20:00* Test Item Value Reference Range Interpretation Comments Red Blood Count (test code = 789-8) 4.83 3.6-5.1 [facility] hemoglobin measurement (moles/volume)2019-08-04 01:20:00* Test Item Value Reference Range Interpretation Comments Hemoglobin (test code = 67928-4) 14.4 12.0-16.0 [facility] blood hematocrit (volume fraction)2019-08-04 01:20:00* Test Item Value Reference Range Interpretation Comments Hematocrit (test code = 4544-3) 43.8 34.2-44.1 [facility] erythrocyte mean corpuscular [id number] 01:20:00* Test Item Value Reference Range Interpretation Comments Mean Corpuscular Volume (test code = 787-2) 90.7 81-99 [facility] [facility] HospitalAutomated erythrocyte mean corpuscular hemoglobin (mass per erythrocyte)2019-08-04 01:20:00* Test Item Value Reference Range Interpretation Comments Mean Corpuscular Hemoglobin (test code = 785-6) 29.8 28-32 [facility] HospitalAutomated erythrocyte mean corpuscular hemoglobin concentration measurement (mass/volume)2019-08-04 01:20:00* Test Item Value Reference Range Interpretation Comments Mean Corpuscular Hemoglobin Concent (test code = 786-4) 32.9 31-35 [facility] HospitalRDW LjxSq-Tzq0274-71-20 01:20:00* Test Item Value Reference Range Interpretation Comments Red Cell Distribution Width (test code = 51876-7) 12.8 11.7 -14.4 [facility] HospitalAutomated blood platelet count (count/volume)2019-08-04 01:20:00* Test Item Value Reference Range Interpretation Comments Platelet Count (test code = 777-3) 251 140-360 [facility] HospitalAutomated blood segmented neutrophil count as percentage of total mchetpbruq3444-85-18 01:20:00* Test Item Value Reference Range Interpretation Comments Neutrophils (%) (Auto) (test code = 95003-6) 67.0 38.7-80.0 [facility] HospitalAutomated blood lymphocyte count as percentage ot total fgelgwxqkw1927-20-02 01:20:00* Test Item Value Reference Range Interpretation Comments Lymphocytes (%) (Auto) (test code = 736-9) 21.4 18.0-39.1 [facility] HospitalAutomated blood monocyte count as percentage of total eseljlbziz8097-59-06 01:20:00* Test Item Value Reference Range Interpretation Comments Monocytes (%) (Auto) (test code = 5905-5) 7.7 4.4-11.3 [facility] HospitalAutomated blood eosinophil count as percentage of total jsyvmntfox3945-52-45 01:20:00* Test Item Value Reference Range Interpretation Comments Eosinophils (%) (Auto) (test code = 713-8) 2.6 0.0-6.0 [facility] HospitalAutomated blood basophil count as percentage of total taddafncpx4059-47-14 01:20:00* Test Item Value Reference Range Interpretation Comments Basophils (%) (Auto) (test code = 706-2) 0.8 0.0-1.0 [facility] HospitalFluoroscopic procedure less than one hour psunvoho0692-76-52 01:20:00* Test Item Value Reference Range Interpretation Comments IM GRANULOCYTES % (test code = IM GRANULOCYTES %) 0.5 0.0- 1.0 [facility] HospitalAutomated blood neutrophil count 2019-08-04 01:20:00* Test Item Value Reference Range Interpretation Comments Neutrophils # (Auto) (test code = 751-8) 5.1 2.1-6.9 [facility] HospitalBlood lymphocytes count (number/volume) 2019-08-04 01:20:00* Test Item Value Reference Range Interpretation Comments Lymphocytes # (Auto) (test code = 85104-7) 1.6 1.0-3.2 [facility] HospitalBlood monocytes automated count (number/volume)2019-08-04 01:20:00* Test Item Value Reference Range Interpretation Comments Monocytes # (Auto) (test code = 742-7) 0.6 0.2-0.8 [facility] HospitalAutomated blood eosinophil count 2019-08-04 01:20:00* Test Item Value Reference Range Interpretation Comments Eosinophils # (Auto) (test code = 711-2) 0.2 0.0-0.4 [facility] HospitalAutomated blood basophil count (count/volume)2019-08-04 01:20:00* Test Item Value Reference Range Interpretation Comments Basophils # (Auto) (test code = 704-7) 0.1 0.0-0.1 [facility] HospitalFluoroscopic procedure less than one hour xwiifvgz5179-48-95 01:20:00* Test Item Value Reference Range Interpretation Comments Absolute Immature Granulocyte (auto (el t code = Absolute Immature Granulocyte (auto) 0.04 0-0.1 [facility] Campuserum or plasma sodium measurement (moles/volume)2019-08-04 01:20:00* Test Item Value Reference Range Interpretation Comments Sodium Level (test code = 2951-2) 141 136-145 [facility] Campuserum or plasma potassium measurement (moles/volume)2019-08-04 01:20:00* Test Item Value Reference Range Interpretation Comments Potassium Level (test code = 2823-3) 3.8 3.5-5.1 [facility] Campuserum or plasma chloride measurement (moles/volume)2019-08-04 01:20:00* Test Item Value Reference Range Interpretation Comments Chloride Level (test code = 2075-0) 106 98-107 [facility] Campuserum or plasma carbon dioxide, total measurement (moles/volume)2019-08-04 01:20:00* Test Item Value Reference Range Interpretation Comments Carbon Dioxide Level (test code = 2028-9) 24 22-29 [facility] Campuserum or plasma anion nur3336-32-19 01:20:00* Test Item Value Reference Range Interpretation Comments Anion Gap (test code = 75962-4) 14.8 8-16 [facility] Campuserum or plasma urea nitrogen measurement (mass/volume)2019-08-04 01:20:00* Test Item Value Reference Range Interpretation Comments Blood Urea Nitrogen (test code = 3094-0) 17 7-26 [facility] Campuserum or plasma creatinine measurement (mass/volume)2019-08-04 01:20:00* Test Item Value Reference Range Interpretation Comments Creatinine (test code = 2160-0) 0.78 0.57-1.11 [facility] Campuserum or plasma urea nitrogen/creatinine mass wlcgr9355-98-42 01:20:00* Test Item Value Reference Range Interpretation Comments BUN/Creatinine Ratio (test code = 3097-3) 22 6-25 [facility] HospitalEstimated glomerular filtration rate (GFR) hjtgytknifyqx0118-92-17 01:20:00* Test Item Value Reference Range Interpretation Comments Estimat Glomerular Filtration Rate (test code = 708052695) > 60 >60 Ranges were taken from the National Kidney Disease Education Program and the [facility] literature.Reference ranges:60 or greater: Ltbtlp81-57 ( for 3 consecutive months): Chronic kidney disease 15 or less: Kidney failureMemorial Hermann [facility] HospitalGlucose kblswpsssev0152-46-49 01:20:00* Test Item Value Reference Range Interpretation Comments Glucose Level (test code = BVU7945) 108 74-118 [facility] Campuserum or plasma calcium measurement (mass/volume)2019-08-04 01:20:00* Test Item Value Reference Range Interpretation Comments Calcium Level (test code = 13479-3) 9.1 8.4-10.2 [facility] Campuserum or plasma total bilirubin measurement (mass/volume)2019-08-04 01:20:00* Test Item Value Reference Range Interpretation Comments Total Bilirubin (test code = 1975-2) 0.3 0.2-1.2 [facility] HospitalFluoroscopic procedure less than one hour fippfxbz8237-93-75 01:20:00* Test Item Value Reference Range Interpretation Comments Aspartate Amino Transf (AST/SGOT) (test code = Aspartate Amino Transf (AST/SGOT)) 7 5-34 [facility] Campuserum or plasma alanine aminotransferase measurement (enzymatic activity/volume)2019-08-04 01:20:00* Test Item Value Reference Range Interpretation Comments Alanine Aminotransferase (ALT/SGPT) (test code = 1742-6) < 6 0-55 [facility] Campuserum or plasma protein measurement (mass/volume)2019-08-04 01:20:00* Test Item Value Reference Range Interpretation Comments Total Protein (test code = 2885-2) 6.6 6.5-8.1 [facility] Campuserum or plasma albumin measurement (mass/volume)2019-08-04 01:20:00* Test Item Value Reference Range Interpretation Comments Albumin (test code = 1751-7) 3.9 3.5-5.0 [facility] HospitalPlasma globulin measurement (mass/volume) 2019-08-04 01:20:00* Test Item Value Reference Range Interpretation Comments Globulin (test code = 15148-4) 2.7 2.3-3.5 [facility] Campuserum or plasma albumin/globulin mass eseaw7029-72-28 01:20:00* Test Item Value Reference Range Interpretation Comments Albumin/Globulin Ratio (test code = 1759-0) 1.4 0.8-2.0 [facility] Campuserum or plasma alkaline phosphatase measurement (enzymatic activity/volume)2019-08-04 01:20:00* Test Item Value Reference Range Interpretation Comments Alkaline Phosphatase (test code = 6768-6) 99 40-150 [facility] HospitalBNP Gbe-nKby8156-70-20 01:20:00* Test Item Value Reference Range Interpretation Comments B-Type Natriuretic Peptide (test code = 72672-6) 76.5 0-100 [facility] HospitalB-TYPE NATRIURETIC OJSUFGG1531-91-09 18:44:00* Test Item Value Reference Range Interpretation Comments B-TYPE NATRIURETIC PEPTIDE (test code = BNP) 79.5 PG/ML 0-100 N - XR HIP W/PEL UNI 2+V [id number] 18:43:00 FAX: Nahun Martinez MD [phone] [place]: St: REG Name: MANJU DIXON [facility] : [birth year] Age/S: 73/F [address] [place] [address] Unit #: [id number] Loc: [place] [address] Phys: Nahun Cox MD Acct: [id number] Dis Date: Status: REG ER PHONE #: [phone] Exam Date: 04/14/20191835 FAX #: [phone] Reason: acute injury EXAMS: CPT CODE: [id number] XR HIP W/PEL UNI 2+[place] [address] Clinical Indication: Acute injury. Comparison: None available. Impression: AP view of the pelvis and lateral view of the left hip. No acute fracture or dislocation. Degenerative changes of the lumbosacral spine. Soft tissues are unre markable. SL: [id number] El ectronically Signed by Kirsten Camarillo on 020 at 1843 Reported and signed by: Bob dawn M.D. CC: Nahun Cox MD Technologist: RT Leticia(R) Trnscrd Date/Time/By: 04/14/2019 (1842) : By: [email or web address] Orig Print D/T: S: 04/14/2019 (1845) PAGE 1 Signed Report [id number] 18:13:00* Test Item Value Reference Range Interpretation Comments D-DIMER (test code = DDIMER) 1361 ng/mlFEU <=500 HH THROMBOSIS AND/OR PULMONARY EMBOLISM AND THE CLINICAL CUT- OFF VALUE FOR EXCLUSION (500 ng/mL FEU) OF THESE CONDITIONSIS VALIDATED BY THE ADVERTISING PHOTOGRAPHER OF THE METHOD. A NEGATIVE D-DIMER RESULT WHEN COMBINED WITH A CLINICALASSESSMENT OF LOW PRETEST PROBABILITY HAS BEEN SHOWN TO HAVEA HIGH NEGATIVE PREDICTIVE VALUE OF DVT OR PE. D-DIMER VALUES >500 ng/mL FEU ARE NOT DIAGNOSTIC FOR DVT, PEor DIC WITHOUT OTHER CONFIRMATORY TESTS AND APPROPRIATECLINICAL EUALUATIONS. CBC W/AUTO [id number] 18:12:00* Test Item Value Reference Range Interpretation [...] (test code = MDIFF) NO COMPREHENSIVE METABOLIC BZZNE0410-15-87 18:09:00* Test Item Value Reference Range Interpretation [...] TOTAL (test code = ALKP) IUnit/L 20-125 [id number] 18:09:00* Test Item Value Reference Range Interpretation Comments TROPONIN-I (test code = TROPI) < 0.015 ng/mL 0.000-0.045 N Negative: <= 0.045 Positive: >= 0.046 Correlation with serial results, other cardiac markers andclinical findings is necessary to determine the clinicalsignificance of this result. Results using different methodologies should not be comparedto one another as quantitative results may vary by method. COMPREHENSIVE METABOLIC [id number] 18:09:00* Test Item Value Reference Range Interpretation [...] code = ALKP) 88 IUnit/L 20-125 N [id number] 18:09:00* Test Item Value Reference Range Interpretation Comments TROPONIN-I (test code = TROPI) < 0.015 ng/mL 0.000-0.045 N Negative: <= 0.045 Positive: >= 0.046 Correlation with serial results, other cardiac markers andclinical findings is necessary to determine the clinicalsignificance of this result. Results using different methodologies should not be comparedto one another as quantitative results may vary by method. - XR NECK SOFT [id number] 17:50:00 FAX: Nahun Martinez MD [phone] [place]: St: REG Name: MANJU DIXON [facility] : [birth year] Age/S: 73/F [address] [place] [address] Unit #: [id number] Loc: [place] [address] Phys: Nahun Cox MD Acct: [id number] Dis Date: Status: REG ER PHONE #: [phone] Exam Date: 04/14/2019 173 FAX #: [phone] Reason: neck tightness/sob EXAMS: CPT CODE: [id number] XR NECK SOFT TISSUE 71427 Clinical Indication: Neck tightness, shortness of breath. Comparison: None available. Impres kaleigh: Soft tissue neck, 2 views submitted on 4 images. Airway is patent . Epiglottis is normal. Prevertebral soft tissues are normal. Of the visualized osseous structures, no acute fracture or subluxation. SL: [id number] Electronically Sign ed by Kirsten Camarillo on 04/14/2019 at 1750 Reported and signed by: Bob Camarillo M.D. CC: Nahun Cox MD Technologist: RT Leticia(R) Trnscrd D ate/Time/By: 04/14/2019 (1749) : By: [email or web address] Orig Print D/T: S: 03/18 (7563) PAGE 1 Signed Repor t - XR CHEST 2 [id number] 17:46:00 FAX: Nahun Martinez MD [phone] [place]: St: REG Name: MANJU DIXON [facility] : [birth year] Age/S: 73/F [address] [place] [address] Unit #: [id number] Loc: [place] [address] Phys: Nahun Cox MD Acct: [id number] Dis Date: Status: REG ER PHONE #: [phone] Exam Date: 04/14/2019 173 FAX #: [phone] Reason: SOB EXAMS: CPT CODE: [id number] XR CHEST 2 V 38417 Chest, 2 views dated 04/14/2019. HISTORY: Shortness [...] MD Technologist: RT Leticia(R) Trnscrd Date/Time/By: 04/14/2019 (0882) : By: Claribel Orig Print D /T: S: 04/14/2019 (5942) PAGE 1 S igned Report Urine Eepohps7188-92-36 09:27:00* Test Item Value Reference Range Interpretation Comments Urine Culture (test code = 630-4) No Result Data Provided [facility] HospitalMagnesium Czxlv9862-33-30 06:30:00* Test Item Value Reference Range Interpretation Comments Magnesium Level (test code = 21372-9) 2.0 1.3-2.1 [facility] Campusodium Fgayj1944-78-89 05:41:00* Test Item Value Reference Range Interpretation Comments Sodium Level (test code = 2951-2) 141 136-145 [facility] HospitalPotassium Jlyig6491-20-68 05:41:00* Test Item Value Reference Range Interpretation Comments Potassium Level (test code = 2823-3) 3.6 3.5-5.1 [facility] HospitalChloride Hhuza2780-23-33 05:41:00* Test Item Value Reference Range Interpretation Comments Chloride Level (test code = 2075-0) 110 98-107 H [facility] HospitalCarbon Dioxide Xrjic9488-57-73 05:41:00* Test Item Value Reference Range Interpretation Comments Carbon Dioxide Level (test code = 2028-9) 24 22-29 [facility] HospitalAnion Fba0794-59-40 05:41:00* Test Item Value Reference Range Interpretation Comments Anion Gap (test code = 69009-5) 10.6 8-16 [facility] HospitalBlood Urea Enbrsily5340-80-56 05:41:00* Test Item Value Reference Range Interpretation Comments Blood Urea Nitrogen (test code = 3094-0) 19 7-26 [facility] HospitalCreatinine2019-12-22 05:41:00* Test Item Value Reference Range Interpretation Comments Creatinine (test code = 2160-0) 0.80 0.57-1.11 [facility] HospitalBUN/Creatinine Mglec3641-33-72 05:41:00* Test Item Value Reference Range Interpretation Comments BUN/Creatinine Ratio (test code = 3097-3) 24 6-25 [facility] HospitalEstimat Glomerular Filtration Rate 2019-03-07 05:41:00* Test Item Value Reference Range Interpretation Comments Estimat Glomerular Filtration Rate (test code = 545910442) > 60 >60 Ranges were taken from the National Kidney Disease Education Program and the [facility] literature.Reference ranges:60 or greater: Yioayc85-45 ( for 3 consecutive months): Chronic kidney disease 15 or less: Kidney failureMemorial Hermann [facility] Heights HospitalGlucose Chbmt6054-28-48 05:41:00* Test Item Value Reference Range Interpretation Comments Glucose Level (test code = TLC0515) 98 74-118 [facility] HospitalCalcium Rdyvj5917-21-21 05:41:00* Test Item Value Reference Range Interpretation Comments Calcium Level (test code = 76893-9) 8.6 8.4-10.2 [facility] HospitalTotal Zeufzrjpa7754-51-80 05:41:00* Test Item Value Reference Range Interpretation Comments Total Bilirubin (test code = 1975-2) 0.3 0.2-1.2 [facility] HospitalAspartate Amino Transf (AST/SGOT) 2019-03-07 05:41:00* Test Item Value Reference Range Interpretation Comments Aspartate Amino Transf (AST/SGOT) (test code = Aspartate Amino Transf (AST/SGOT)) 8 5-34 [facility] HospitalAlanine Aminotransferase (ALT/SGPT) 2019-03-07 05:41:00* Test Item Value Reference Range Interpretation Comments Alanine Aminotransferase (ALT/SGPT) (test code = 1742-6) < 6 0-55 [facility] HospitalTotal Vypvrxi7246-68-35 05:41:00* Test Item Value Reference Range Interpretation Comments Total Protein (test code = 2885-2) 5.3 6.5-8.1 L [facility] HospitalAlbumin2019-12-22 05:41:00* Test Item Value Reference Range Interpretation Comments Albumin (test code = 1751-7) 3.3 3.5-5.0 L [facility] HospitalGlobulin2019-12-22 05:41:00* Test Item Value Reference Range Interpretation Comments Globulin (test code = 19237-5) 2.0 2.3-3.5 L [facility] HospitalAlbumin/Globulin Jseur3713-04-33 05:41:00 * Test Item Value Reference Range Interpretation Comments Albumin/Globulin Ratio (test code = 1759-0) 1.7 0.8-2.0 [facility] HospitalAlkaline Dqipdbwfnis9911-17-82 05:41:00* Test Item Value Reference Range Interpretation Comments Alkaline Phosphatase (test code = 6768-6) 71 40-150 [facility] HospitalWhite Blood Jjdmg3835-37-42 05:19:00* Test Item Value Reference Range Interpretation Comments White Blood Count (test code = 6690-2) 9.30 4.8-10.8 [facility] HospitalRed Blood Vnxjh4503-92-19 05:19:00* Test Item Value Reference Range Interpretation Comments Red Blood Count (test code = 789-8) 4.21 3.6-5.1 [facility] HospitalHemoglobin2019-12-22 05:19:00* Test Item Value Reference Range Interpretation Comments Hemoglobin (test code = 53489-3) 12.4 12.0-16.0 [facility] HospitalHematocrit2019-12-22 05:19:00* Test Item Value Reference Range Interpretation Comments Hematocrit (test code = 4544-3) 38.5 34.2-44.1 [facility] HospitalMean Corpuscular Xinsqt5306-81-01 05:19:00* Test Item Value Reference Range Interpretation Comments Mean Corpuscular Volume (test code = 787-2) 91.4 81-99 [facility] HospitalMean Corpuscular Avefgvovbf6920-19-35 05:19:00* Test Item Value Reference Range Interpretation Comments Mean Corpuscular Hemoglobin (test code = 785-6) 29.5 28-32 [facility] HospitalMean Corpuscular Hemoglobin Concent 2019-03-07 05:19:00* Test Item Value Reference Range Interpretation Comments Mean Corpuscular Hemoglobin Concent (test code = 786-4) 32.2 31-35 [facility] HospitalRed Cell Distribution Feccf4077-13-85 05:19:00* Test Item Value Reference Range Interpretation Comments Red Cell Distribution Width (test code = 27142-9) 12.9 11.7 -14.4 [facility] HospitalPlatelet Vbrjs5966-20-82 05:19:00* Test Item Value Reference Range Interpretation Comments Platelet Count (test code = 777-3) 204 140-360 [facility] HospitalNeutrophils (%) (Auto)2019-03-07 05:19:00 * Test Item Value Reference Range Interpretation Comments Neutrophils (%) (Auto) (test code = 41304-3) 77.3 38.7-80.0 [facility] HospitalLymphocytes (%) (Auto)2019-03-07 05:19:00 * Test Item Value Reference Range Interpretation Comments Lymphocytes (%) (Auto) (test code = 736-9) 13.8 18.0-39.1 L [facility] HospitalMonocytes (%) (Auto)2019-03-07 05:19:00* Test Item Value Reference Range Interpretation Comments Monocytes (%) (Auto) (test code = 5905-5) 6.7 4.4-11.3 [facility] HospitalEosinophils (%) (Auto)2019-03-07 05:19:00 * Test Item Value Reference Range Interpretation Comments Eosinophils (%) (Auto) (test code = 713-8) 1.3 0.0-6.0 [facility] HospitalBasophils (%) (Auto)2019-03-07 05:19:00* Test Item Value Reference Range Interpretation Comments Basophils (%) (Auto) (test code = 706-2) 0.4 0.0-1.0 [facility] HospitalIM GRANULOCYTES %2019-03-07 05:19:00* Test Item Value Reference Range Interpretation Comments IM GRANULOCYTES % (test code = IM GRANULOCYTES %) 0.5 0.0- 1.0 [facility] HospitalNeutrophils # (Auto)2019-03-07 05:19:00* Test Item Value Reference Range Interpretation Comments Neutrophils # (Auto) (test code = 751-8) 7.2 2.1-6.9 H [facility] HospitalLymphocytes # (Auto)2019-03-07 05:19:00* Test Item Value Reference Range Interpretation Comments Lymphocytes # (Auto) (test code = 19494-4) 1.3 1.0-3.2 [facility] HospitalMonocytes # (Auto)2019-03-07 05:19:00* Test Item Value Reference Range Interpretation Comments Monocytes # (Auto) (test code = 742-7) 0.6 0.2-0.8 [facility] HospitalEosinophils # (Auto)2019-03-07 05:19:00* Test Item Value Reference Range Interpretation Comments Eosinophils # (Auto) (test code = 711-2) 0.1 0.0-0.4 [facility] HospitalBasophils # (Auto)2019-03-07 05:19:00* Test Item Value Reference Range Interpretation Comments Basophils # (Auto) (test code = 704-7) 0.0 0.0-0.1 [facility] HospitalAbsolute Immature Granulocyte (auto 2019-03-07 05:19:00* Test Item Value Reference Range Interpretation Comments Absolute Immature Granulocyte (auto (el t code = Absolute Immature Granulocyte (auto) 0.05 0-0.1 [facility] Campuserum or plasma magnesium measurement (mass/volume)2019-03-07 03:45:00* Test Item Value Reference Range Interpretation Comments Magnesium Level (test code = 80990-1) 2.0 1.3-2.1 [facility] HospitalBlood Hcmlwbk7313-88-51 02:57:00* Test Item Value Reference Range Interpretation Comments Blood Culture (test code = 40282438) NO GROWTH AFTER 24 HOURS [facility] HospitalCreatine Kinase [id number] 18:21:00* Test Item Value Reference Range Interpretation Comments Creatine Kinase MB (test code = 80611-0) 6.70 0-5.0 H [facility] HospitalTroponin D3503-10-97 18:21:00* Test Item Value Reference Range Interpretation Comments Troponin I (test code = USS9551) < 0.001 0-0.300 [facility] HospitalCreatine Ikkgdc8621-67-48 18:15:00* Test Item Value Reference Range Interpretation Comments Creatine Kinase (test code = 2157-6) 223 29-168 H [facility] HospitalThyroid Stimulating Hormone (TSH) 2019-03-06 10:28:00* Test Item Value Reference Range Interpretation Comments Thyroid Stimulating Hormone (TSH) (test code = 50696-5) 1.112 0.350-4.940 [facility] HospitalTriglycerides Xacly5291-17-24 10:03:00* Test Item Value Reference Range Interpretation Comments Triglycerides Level (test code = 2571-8) 75 0-149 [facility] HospitalCholesterol Hyect7837-90-63 10:03:00* Test Item Value Reference Range Interpretation Comments Cholesterol Level (test code = 2093-3) 145 0-199 Less than 200 mg/dL Low Mjlx954 - 239 mg/dL Borderline Uqhs245 m g/dl and greater High Risk [facility] HospitalLDL Yewhwopwiey6752-99-77 10:03:00* Test Item Value Reference Range Interpretation Comments LDL Cholesterol (test code = 2089-1) 87 60-130 [facility] HospitalHDL Buiifmqoxbh9682-12-87 10:03:00* Test Item Value Reference Range Interpretation Comments HDL Cholesterol (test code = 2085-9) 43 40-60 [facility] HospitalCholesterol/HDL Gvtil8133-20-21 10:03:00 * Test Item Value Reference Range Interpretation Comments Cholesterol/HDL Ratio (test code = 9830-1) 3.4 3.0-3.6 [facility] HospitalHemoglobin A1c Wiqntey7700-98-49 10:00:00 * Test Item Value Reference Range Interpretation Comments Hemoglobin A1c Percent (test code = Hemoglobin A1c Percent) 5.7 4.0-7.0 [facility] HospitalFluoroscopic procedure less than one hour tgtzchwh0398-03-25 05:20:00* Test Item Value Reference Range Interpretation Comments Hemoglobin A1c Percent (test code = Hemoglobin A1c Percent) 5.7 4.0-7.0 [facility] Camp[facility] or plasma triglyceride measurement (mass/volume)2019-03-06 05:20:00* Test Item Value Reference Range Interpretation Comments Triglycerides Level (test code = 2571-8) 75 0-149 [facility] Campuserum or plasma cholesterol measurement (mass/volume)2019-03-06 05:20:00* Test Item Value Reference Range Interpretation Comments Cholesterol Level (test code = 2093-3) 145 0-199 Less than 200 mg/dL Low Vnow277 - 239 mg/dL Borderline Nxmf045 m g/dl and greater High Risk [facility] Camp[facility]um or plasma cholesterol in LDL measurement (mass/volume) 2019-03-06 05:20:00* Test Item Value Reference Range Interpretation Comments LDL Cholesterol (test code = 2089-1) 87 60-130 [facility] or plasma cholesterol in HDL measurement (mass/volume)2019-03-06 05:20:00* Test Item Value Reference Range Interpretation Comments HDL Cholesterol (test code = 2085-9) 43 40-60 [facility] Camp[facility]um or plasma total cholesterol/cholesterol in HDL mass axsxx6274-89-30 05:20:00* Test Item Value Reference Range Interpretation Comments Cholesterol/HDL Ratio (test code = 9830-1) 3.4 3.0-3.6 [facility] Camp[facility]um or plasma thyrotropin measurement by detection limit <= 0.005 miu/l (units/volume)2019-03-06 05:20:00* Test Item Value Reference Range Interpretation Comments Thyroid Stimulating Hormone (TSH) (test code = 49659-2) 1.112 0.350-4.940 [facility] HospitalUrine THJ6032-09-20 04:09:00* Test Item Value Reference Range Interpretation Comments Urine WBC (test code = 5821-4) 0-5 0-5 [facility] HospitalUrine AOL3709-79-94 04:09:00* Test Item Value Reference Range Interpretation Comments Urine RBC (test code = 84458-7) 0-5 0-5 [facility] HospitalU[facility] Gstdnitv7337-68-19 04:09:00* Test Item Value Reference Range Interpretation Comments Urine Bacteria (test code = 03075-7) MODERATE NONE H [facility] HospitalUrine Epithelial Znyjm5267-89-18 04:09:00 * Test Item Value Reference Range Interpretation Comments Urine Epithelial Cells (test code = 46384-2) FEW NONE [facility] HospitalUrine Amorphous Fwwpbhtg3601-35-07 04:09:00* Test Item Value Reference Range Interpretation Comments Urine Amorphous Sediment (test code = 8246-1) MANY FEW H [facility] HospitalPELVIS AP 1-2 CPEJF3392-30-35 04:01:00 [facility] [address] [place] [address] Patient Name: MANJU PEARSON MR #: [id number] : 1945 Age/Sex: 73/F Req #: [id number] Adm Physician: ULICES SUAREZ MD Ordered by: OKSANA RAMIREZ MD Report #: [id number] Location: [facility] Room/Bed: [place] [address] Procedure: [id number] DX/PELVIS AP 1-2 VIEWS Exam Date: 03/06/19 [...] OKSANA RAMIREZ MD CHEST SINGLE (PORTABLE)2019-03-06 04:00:00 [place] [address] Patient Name: MANJU PEARSON MR #: [id number] : 1945 Age/Sex: 73/F Req #: [id number] Adm Physician: ULICES SUAREZ MD Ordered by: OKSANA RAMIREZ MD Report #: [id number] Location: [facility] Room/Bed: [place] [address] Procedure: [id number] DX/CHEST SINGLE (PORTABLE) Exam Date: 03/06/19 Exam [...] COPY TO: OKSANA RAMIREZ MD B-Type Natriuretic Yclhzxn3278-37-44 03:57:00* Test Item Value Reference Range Interpretation Comments B-Type Natriuretic Peptide (test code = 15398-8) 149.4 0-100 [facility] NE9401-37-54 03:48:00 [facility] [address] [place] [address] Patient Name: MANJU PEARSON MR #: [id number] : 1945 Age/Sex: 73/F Req #: [id number] Adm Physician: ULICES SUAREZ MD Ordered by: OKSANA RAMIREZ MD Report #: [id number] Location: [facility] Room/Bed: [place] [address] Procedure: [id number] CT/CT CERVICAL SPINE WO Exam Date: 03/06/19 [...] spondylosis as detailed above. Signed by: Dr. Angelica Munoz M.D. on 03/06/2019 3:54 AM Dictated By: ANGELICA MUNOZ MD 0 354 Transcribed By: SAVITA on 03/06/19 4700 COPY TO: OKSANA RAMIREZ MD Prothrombin Debg8600-66-49 03:45:00* Test Item Value Reference Range Interpretation Comments Prothrombin Time (test code = 5902-2) 13.4 11.9-14.5 [facility] HospitalProthromb Time International Ratio 2019-03-06 03:45:00* Test Item Value Reference Range Interpretation Comments Prothromb Time International Ratio (test code = 6301-6) 0.97 Oral Anticoagulant Therapy INR Values:1. Low Intensity Therapy 1.5 - 2.02 . Moderate Intensity Therapy 2.0 - 3.03. High Intensity Therapy(1) 2.5 - 3. 54. High Intensity Therapy(2) 3.0 - 4.05. Panic Value INR > 5.0 [facility] HospitalActivated Partial Thromboplast Time 2019-03-06 03:45:00* Test Item Value Reference Range Interpretation Comments Activated Partial Thromboplast Time (test code = 73159-6) 25.3 23.8-35.5 [facility] HospitalUrine Namuo0408-04-93 03:45:00* Test Item Value Reference Range Interpretation Comments Urine Color (test code = 5778-6) YELLOW YELLOW [facility] HospitalUrine Qoomsbx9183-07-77 03:45:00* Test Item Value Reference Range Interpretation Comments Urine Clarity (test code = 65898-3) SL CLOUDY CLEAR [facility] Specific Cemollr6289-63-76 03:45:00 * Test Item Value Reference Range Interpretation Comments Urine Specific [place] (test code = 5811-5) 1.020 1.010-1.02 5 [facility] HospitalUrine pC5233-04-47 03:45:00* Test Item Value Reference Range Interpretation Comments Urine pH (test code = 15191-6) 7 5-7 [facility] Leukocyte Kzfsnjjr5806-18-68 03:45:00* Test Item Value Reference Range Interpretation Comments Urine Leukocyte Esterase (test code = 13017-3) NEGATIVE NEGATIV E [facility] HospitalUrine Ugvpvmp4321-86-91 03:45:00* Test Item Value Reference Range Interpretation Comments Urine Nitrite (test code = 79740-3) NEGATIVE NEGATIVE [facility] HospitalUrine Bbtfckg6599-75-94 03:45:00* Test Item Value Reference Range Interpretation Comments Urine Protein (test code = 27450-3) NEGATIVE NEGATIVE [facility] Glucose (UA)2019-03-06 03:45:00* Test Item Value Reference Range Interpretation Comments Urine Glucose (UA) (test code = 59748-3) NEGATIVE NEGATIVE [facility] HospitalUrine Opeqdyp1814-23-06 03:45:00* Test Item Value Reference Range Interpretation Comments Urine Ketones (test code = 53746-5) NEGATIVE NEGATIVE [facility] Oryptnqsqblq5731-20-68 03:45:00* Test Item Value Reference Range Interpretation Comments Urine Urobilinogen (test code = 73089-4) 0.2 0.2-1 [facility] HospitalUrine Hnpldxryf3758-28-90 03:45:00* Test Item Value Reference Range Interpretation Comments Urine Bilirubin (test code = 1977-8) NEGATIVE NEGATIVE [facility] Uqkql9401-41-00 03:45:00* Test Item Value Reference Range Interpretation Comments Urine Blood (test code = 09626-1) NEGATIVE NEGATIVE [facility] HospitalCT BRAIN VT3712-22-71 03:44:00 [facility] [address] [place] [address] Patient Name: MANJU PEARSON MR #: [id number] : 1945 Age/Sex: 73/F Req #: [id number] Adm Physician: Ordered by: OKSANA RAMIREZ MD Report #: [id number] Location: ER Room/Bed: Procedure: [id number] C T/CT BRAIN WO Exam Date: 03/06/19 Exam Time: 0236 REPORT STATUS: Signed EXAMINATION: Head CT without contrast. HISTORY:Syncope, fall. COMPARISON:Repo rt of CT brain from 05/25/2012, prior images not available for comparison at [facility] time of interpretation. TECHNIQUE: Multidetector axial [...] mi crovascular ischemic changes. Signed by: Dr. Angelica Munoz M.D. on 03/06 3:48 AM Dictated By: ANGELICA MUNOZ MD 7 Transcribed By: SAVITA on 03/06/19347 COPY TO: OKSANA RAMIREZ MD Lactic Acid Dlojk6061-19-42 03:37:00* Test Item Value Reference Range Interpretation Comments Lactic Acid Level (test code = Lactic Acid Level) 0.6 0.5- 2.0 [facility] HospitalUrine color gppcdlzcvjkop4570-19-53 02:17:00* Test Item Value Reference Range Interpretation Comments Urine Color (test code = 5778-6) YELLOW YELLOW [facility] HospitalUrine hzmplgy4339-22-10 02:17:00* Test Item Value Reference Range Interpretation Comments Urine Clarity (test code = 18212-6) SL CLOUDY CLEAR [facility] Campuspecific gravity of Urine by Test strip 2019-03-06 02:17:00* Test Item Value Reference Range Interpretation Comments Urine Specific [place] (test code = 5811-5) 1.020 1.010-1.02 5 [facility] HospitalUrine pH measurement by automated test ypccf6550-92-68 02:17:00* Test Item Value Reference Range Interpretation Comments Urine pH (test code = 85282-8) 7 5-7 [facility] HospitalUrine leukocyte esterase detection by automated test iohha0253-83-32 02:17:00* Test Item Value Reference Range Interpretation Comments Urine Leukocyte Esterase (test code = 59316-1) NEGATIVE NEGATIV E [facility] HospitalUrine nitrite detection by automated test ybkci6791-81-63 02:17:00* Test Item Value Reference Range Interpretation Comments Urine Nitrite (test code = 50031-2) NEGATIVE NEGATIVE [facility] HospitalUrine protein detection by automated test qmapn5984-62-10 02:17:00* Test Item Value Reference Range Interpretation Comments Urine Protein (test code = 44716-0) NEGATIVE NEGATIVE [facility] HospitalUrine glucose detection by automated test beqiw1508-66-62 02:17:00* Test Item Value Reference Range Interpretation Comments Urine Glucose (UA) (test code = 89382-1) NEGATIVE NEGATIVE [facility] HospitalUrine ketones detection by automated test zceir0146-58-39 02:17:00* Test Item Value Reference Range Interpretation Comments Urine Ketones (test code = 27188-7) NEGATIVE NEGATIVE [facility] HospitalUrine urobilinogen measurement by test strip (mass/volume)2019-03-06 02:17:00* Test Item Value Reference Range Interpretation Comments Urine Urobilinogen (test code = 39726-9) 0.2 0.2-1 [facility] HospitalUrine total bilirubin kenfxkthy3929-63-62 02:17:00* Test Item Value Reference Range Interpretation Comments Urine Bilirubin (test code = 1977-8) NEGATIVE NEGATIVE [facility] HospitalUrine erythrocytes uqchreaza1509-84-12 02:17:00* Test Item Value Reference Range Interpretation Comments Urine Blood (test code = 80357-9) NEGATIVE NEGATIVE [facility] HospitalAutomated urine sediment leukocyte count by microscopy (number/high power field)2019-03-06 02:17:00* Test Item Value Reference Range Interpretation Comments Urine WBC (test code = 5821-4) 0-5 0-5 [facility] HospitalErythrocytes detection in urine sediment by light owbfyegeyi7446-95-39 02:17:00* Test Item Value Reference Range Interpretation Comments Urine RBC (test code = 08788-3) 0-5 0-5 [facility] HospitalBacteria detection in urine sediment by light edazevjlrc1668-17-17 02:17:00* Test Item Value Reference Range Interpretation Comments Urine Bacteria (test code = 23520-4) MODERATE NONE [facility] HospitalEpithelial cells detection in urine sediment by light kauzlagybj5032-26-62 02:17:00* Test Item Value Reference Range Interpretation Comments Urine Epithelial Cells (test code = 49355-9) FEW NONE [facility] HospitalAmorphous sediment detection in urine sediment by light pahdxsugne7558-08-50 02:17:00* Test Item Value Reference Range Interpretation Comments Urine Amorphous Sediment (test code = 8246-1) MANY FEW [facility] HospitalBacterial urine scxrrbr0846-43-79 02:17:00* Test Item Value Reference Range Interpretation Comments Urine Culture (test code = 630-4) ENTEROCOCCUS FAECALIS [facility] HospitalProthrombin time (PT) in platelet poor plasma by coagulation mwori7976-19-11 01:50:00* Test Item Value Reference Range Interpretation Comments Prothrombin Time (test code = 5902-2) 13.4 11.9-14.5 [facility] HospitalINR in Platelet poor plasma by Coagulation pbkkp8017-61-16 01:50:00* Test Item Value Reference Range Interpretation Comments Prothromb Time International Ratio (test code = 6301-6) 0.97 Oral Anticoagulant Therapy INR Values:1. Low Intensity Therapy 1.5 - 2.02 . Moderate Intensity Therapy 2.0 - 3.03. High Intensity Therapy(1) 2.5 - 3. 54. High Intensity Therapy(2) 3.0 - 4.05. Panic Value INR > 5.0 [facility] HospitalActivated partial thromboplastin time (aPTT) in platelet poor plasma by coagulation eusoy5028-45-73 01:50:00* Test Item Value Reference Range Interpretation Comments Activated Partial Thromboplast Time (test code = 51516-3) 25.3 23.8-35.5 [facility] HospitalFluoroscopic procedure less than one hour wwrwhmyp2177-50-98 01:50:00* Test Item Value Reference Range Interpretation Comments Lactic Acid Level (test code = Lactic Acid Level) 0.6 0.5- 2.0 [facility] HospitalBlood gxgyhxu3046-61-56 01:50:00* Test Item Value Reference Range Interpretation Comments Blood Culture (test code = 58729792) NO GROWTH AFTER 5 DAYS, FINAL REPORT [facility] HospitalCT ABDOMEN/PELVIS V9517-21-87 22:42:00 [facility] [address] [place] [address] Patient Name: MANJU PEARSON MR #: [id number] : 1945 Age/Sex: 73/F Req #: [id number] Adm Physician: Ordered by: ASHLEY NAM MD Report #: [id number] Location: ER Room/Bed: Procedure: [id number] CT/CT [...] is below the limits set by the R adiation Protocol Committee (RPC). FINDINGS: LINES and TUBES: [...] Level (test code = 1798-8) 44 25-125 [facility] HospitalLipase2019-10-19 21:39:00* Test Item Value Reference Range Interpretation Comments Lipase (test code = 3040-3) [facility] HospitalAmylase Fntyz1943-38-90 21:39:00* Test Item Value Reference Range Interpretation Comments Amylase Level (test code = 1798-8) 44 25-125 [facility] HospitalLipase2019-10-19 21:39:00* Test Item Value Reference Range Interpretation Comments Lipase (test code = 3040-3) [facility] Campusodium Qkhhk3963-17-15 21:14:00* Test Item Value Reference Range Interpretation Comments Sodium Level (test code = 2951-2) 139 136-145 [facility] HospitalPotassium Vbuvv7270-32-99 21:14:00* Test Item Value Reference Range Interpretation Comments Potassium Level (test code = 2823-3) 3.6 3.5-5.1 [facility] HospitalChloride Utywo9064-52-69 21:14:00* Test Item Value Reference Range Interpretation Comments Chloride Level (test code = 2075-0) 106 98-107 [facility] HospitalCarbon Dioxide Gfadb0426-99-55 21:14:00* Test Item Value Reference Range Interpretation Comments Carbon Dioxide Level (test code = 2028-9) 23 22-29 [facility] HospitalAnion Gtc3172-85-11 21:14:00* Test Item Value Reference Range Interpretation Comments Anion Gap (test code = 19595-3) 13.6 8-16 [facility] HospitalBlood Urea Rhxnqyfw3091-66-82 21:14:00* Test Item Value Reference Range Interpretation Comments Blood Urea Nitrogen (test code = 3094-0) 21 7- [facility] HospitalCreatinine2019-10-19 21:14:00* Test Item Value Reference Range Interpretation Comments Creatinine (test code = 2160-0) 0.91 0.57-1.11 [facility] HospitalBUN/Creatinine Afenn9764-82-59 21:14:00* Test Item Value Reference Range Interpretation Comments BUN/Creatinine Ratio (test code = 3097-3) 23 6- [facility] HospitalEstimat Glomerular Filtration Rate 2019-01-02 21:14:00* Test Item Value Reference Range Interpretation Comments Estimat Glomerular Filtration Rate (test code = 723677657) > 60 >60 Ranges were taken from the National Kidney Disease Education Program and the [facility] Kidney Foundation literature.Reference ranges:60 or greater: Rvscak53-08 ( for 3 consecutive months): Chronic kidney disease 15 or less: Kidney failureMemorial Hermann Greater Heights HospitalGlucose Dsubz7391-49-47 21:14:00* Test Item Value Reference Range Interpretation Comments Glucose Level (test code = RRT5464) 109 74-118 [facility] HospitalCalcium Fsklx7012-49-29 21:14:00* Test Item Value Reference Range Interpretation Comments Calcium Level (test code = 82831-1) 9.6 8.4-10.2 [facility] HospitalTotal Ysoefdkza6625-98-07 21:14:00* Test Item Value Reference Range Interpretation Comments Total Bilirubin (test code = 1975-2) 0.3 0.2-1.2 [facility] HospitalAspartate Amino Transf (AST/SGOT) 2019-01-02 21:14:00* Test Item Value Reference Range Interpretation Comments Aspartate Amino Transf (AST/SGOT) (test code = Aspartate Amino Transf (AST/SGOT)) 9 5-34 [facility] HospitalAlanine Aminotransferase (ALT/SGPT) 2019-01-02 21:14:00* Test Item Value Reference Range Interpretation Comments Alanine Aminotransferase (ALT/SGPT) (test code = 1742-6) < 6 0-55 [facility] HospitalTotal Ulhmnls0337-93-37 21:14:00* Test Item Value Reference Range Interpretation Comments Total Protein (test code = 2885-2) 6.4 6.5-8.1 L [facility] HospitalAlbumin2019-10-19 21:14:00* Test Item Value Reference Range Interpretation Comments Albumin (test code = 1751-7) 3.8 3.5-5.0 [facility] HospitalGlobulin2019-10-19 21:14:00* Test Item Value Reference Range Interpretation Comments Globulin (test code = 36446-5) 2.6 2.3-3.5 [facility] HospitalAlbumin/Globulin Wllyi0745-96-14 21:14:00 * Test Item Value Reference Range Interpretation Comments Albumin/Globulin Ratio (test code = 1759-0) 1.5 0.8-2.0 [facility] HospitalAlkaline Voikxcbipqy9425-24-95 21:14:00* Test Item Value Reference Range Interpretation Comments Alkaline Phosphatase (test code = 6768-6) 79 40-150 [facility] HospitalUrine LKD1049-25-29 21:12:00* Test Item Value Reference Range Interpretation Comments Urine WBC (test code = 5821-4) 0-5 0-5 [facility] HospitalUrine RVS6174-19-62 21:12:00* Test Item Value Reference Range Interpretation Comments Urine RBC (test code = 59933-3) 0-5 0-5 [facility] HospitalUrine Jkjbofmc0393-23-66 21:12:00* Test Item Value Reference Range Interpretation Comments Urine Bacteria (test code = 93613-4) RARE NONE [facility] HospitalUrine Epithelial Tihha8424-01-37 21:12:00 * Test Item Value Reference Range Interpretation Comments Urine Epithelial Cells (test code = 66337-7) FEW NONE [facility] HospitalUrine Dunvq8932-80-99 20:58:00* Test Item Value Reference Range Interpretation Comments Urine Color (test code = 5778-6) YELLOW YELLOW [facility] HospitalUrine Esvpmfw4685-60-62 20:58:00* Test Item Value Reference Range Interpretation Comments Urine Clarity (test code = 51299-9) CLEAR CLEAR [facility] HospitalUrine Specific Gacnrxj6806-82-25 20:58:00 * Test Item Value Reference Range Interpretation Comments Urine Specific [place] (test code = 5811-5) 1.020 1.010-1.02 5 [facility] HospitalUrine rC7113-35-27 20:58:00* Test Item Value Reference Range Interpretation Comments Urine pH (test code = 50151-0) 6 5-7 [facility] HospitalUrine Leukocyte Wshwmyoy2519-09-23 20:58:00* Test Item Value Reference Range Interpretation Comments Urine Leukocyte Esterase (test code = 11084-8) NEGATIVE NEGATIV E [facility] HospitalUrine Omhyycy7825-11-25 20:58:00* Test Item Value Reference Range Interpretation Comments Urine Nitrite (test code = 76534-6) NEGATIVE NEGATIVE [facility] HospitalUrine Wsbvuqd3983-73-65 20:58:00* Test Item Value Reference Range Interpretation Comments Urine Protein (test code = 76309-7) NEGATIVE NEGATIVE [facility] HospitalUrine Glucose (UA)2019-01-02 20:58:00* Test Item Value Reference Range Interpretation Comments Urine Glucose (UA) (test code = 27529-9) NEGATIVE NEGATIVE [facility] HospitalUrine Yikculm4376-42-97 20:58:00* Test Item Value Reference Range Interpretation Comments Urine Ketones (test code = 58822-1) TRACE NEGATIVE H [facility] HospitalUrine Ocklfmqnmuqi2579-65-89 20:58:00* Test Item Value Reference Range Interpretation Comments Urine Urobilinogen (test code = 80288-7) 0.2 0.2-1 [facility] HospitalUrine Outqonsue2137-72-88 20:58:00* Test Item Value Reference Range Interpretation Comments Urine Bilirubin (test code = 1977-8) NEGATIVE NEGATIVE [facility] HospitalUrine Howfq2012-57-76 20:58:00* Test Item Value Reference Range Interpretation Comments Urine Blood (test code = 07914-4) NEGATIVE NEGATIVE [facility] HospitalWhite Blood Ruzaj0342-15-39 20:53:00* Test Item Value Reference Range Interpretation Comments White Blood Count (test code = 6690-2) 7.01 4.8-10.8 [facility] HospitalRed Blood Kllns3816-50-39 20:53:00* Test Item Value Reference Range Interpretation Comments Red Blood Count (test code = 789-8) 4.49 3.6-5.1 [facility] HospitalHemoglobin2019-10-19 20:53:00* Test Item Value Reference Range Interpretation Comments Hemoglobin (test code = 51995-6) 13.7 12.0-16.0 [facility] HospitalHematocrit2019-10-19 20:53:00* Test Item Value Reference Range Interpretation Comments Hematocrit (test code = 4544-3) 40.9 34.2-44.1 [facility] HospitalMean Corpuscular Zqrgwa2383-48-62 20:53:00* Test Item Value Reference Range Interpretation Comments Mean Corpuscular Volume (test code = 787-2) 91.1 81-99 [facility] HospitalMean Corpuscular Tqxgwcbpyy3591-52-42 20:53:00* Test Item Value Reference Range Interpretation Comments Mean Corpuscular Hemoglobin (test code = 785-6) 30.5 28-32 [facility] HospitalMean Corpuscular Hemoglobin Concent 2019-01-02 20:53:00* Test Item Value Reference Range Interpretation Comments Mean Corpuscular Hemoglobin Concent (test code = 786-4) 33.5 31-35 [facility] HospitalRed Cell Distribution Fblrw5630-72-50 20:53:00* Test Item Value Reference Range Interpretation Comments Red Cell Distribution Width (test code = 97355-3) 12.5 11.7 -14.4 [facility] HospitalPlatelet Bvdts6421-82-87 20:53:00* Test Item Value Reference Range Interpretation Comments Platelet Count (test code = 777-3) 221 140-360 [facility] HospitalNeutrophils (%) (Auto)2019-01-02 20:53:00 * Test Item Value Reference Range Interpretation Comments Neutrophils (%) (Auto) (test code = 44038-4) 75.6 38.7-80.0 [facility] HospitalLymphocytes (%) (Auto)2019-01-02 20:53:00 * Test Item Value Reference Range Interpretation Comments Lymphocytes (%) (Auto) (test code = 736-9) 14.8 18.0-39.1 L [facility] HospitalMonocytes (%) (Auto)2019-01-02 20:53:00* Test Item Value Reference Range Interpretation Comments Monocytes (%) (Auto) (test code = 5905-5) 6.4 4.4-11.3 [facility]Eosinophils (%) (Auto)2019-01-02 20:53:00 * Test Item Value Reference Range Interpretation Comments Eosinophils (%) (Auto) (test code = 713-8) 1.9 0.0-6.0 [facility] HospitalBasophils (%) (Auto)2019-01-02 20:53:00* Test Item Value Reference Range Interpretation Comments Basophils (%) (Auto) (test code = 706-2) 0.9 0.0-1.0 [facility] HospitalIM GRANULOCYTES %2019-01-02 20:53:00* Test Item Value Reference Range Interpretation Comments IM GRANULOCYTES % (test code = IM GRANULOCYTES %) 0.4 0.0- 1.0 [facility] HospitalNeutrophils # (Auto)2019-01-02 20:53:00* Test Item Value Reference Range Interpretation Comments Neutrophils # (Auto) (test code = 751-8) 5.3 2.1-6.9 [facility] HospitalLymphocytes # (Auto)2019-01-02 20:53:00* Test Item Value Reference Range Interpretation Comments Lymphocytes # (Auto) (test code = 75259-2) 1.0 1.0-3.2 [facility] HospitalMonocytes # (Auto)2019-01-02 20:53:00* Test Item Value Reference Range Interpretation Comments Monocytes # (Auto) (test code = 742-7) 0.5 0.2-0.8 [facility] HospitalEosinophils # (Auto)2019-01-02 20:53:00* Test Item Value Reference Range Interpretation Comments Eosinophils # (Auto) (test code = 711-2) 0.1 0.0-0.4 [facility] HospitalBasophils # (Auto)2019-01-02 20:53:00* Test Item Value Reference Range Interpretation Comments Basophils # (Auto) (test code = 704-7) 0.1 0.0-0.1 [facility] HospitalAbsolute Immature Granulocyte (auto 2019-01-02 20:53:00* Test Item Value Reference Range Interpretation Comments Absolute Immature Granulocyte (auto (el t code = Absolute Immature Granulocyte (auto) 0.03 0-0.1 [facility] Camp[facility] or plasma amylase measurement (enzymatic activity/volume)2019-01-02 20:35:00* Test Item Value Reference Range Interpretation Comments Amylase Level (test code = 1798-8) 44 25-125 [facility] Campuserum or plasma lipase measurement (enzymatic activity/volume)2019-01-02 20:35:00* Test Item Value Reference Range Interpretation Comments Lipase (test code = 3040-3) 11 8-78 [facility] HospitalCHEST 2 [id number] 17:27:00 [facility] [address], [place] [address] Patient Name: MANJU PEARSON MR #: [id number] : 1945 Age/Sex: 72/F Req #: [id number] Adm Physician: Ordered by: LEXI BARAJAS MD Report #: [id number] Location: [facility] Room/Bed: Procedure: [id number] DX/ CHEST 2 VIEWS Exam Date: 06/08/18 Exam Time: 1700 REPORT STATUS: Signed EXAMINATION: CHEST 2 VIEWS INDICATION: [id number] COUGH COM PARISON: Abdomen and pelvis [...] 27 COPY TO: LEXI BARAJAS RENAL RETROPERITONEAL [id number] 14:02:00 [facility] [address], [place] [address] Patient Name: MANJU PEARSON MR #: [id number] : 1945 Age/Sex: 72/F Req #: [id number] Adm Physician: Ordered by: SELENE WOOTEN MD Report #: [id number] Location: Room/Bed: Procedure: [id number] US/US RENAL RETROPERITONEAL COMP Exam Date: 04/02/18 [...] MD 140 Transcribed By: SAVITA on 04/02/18 1403 COPY TO: SELENE WOOTEN MD Urine Ezxgg3642-99-99 01:39:00* Test Item Value Reference Range Interpretation Comments Urine Color (test code = 5778-6) YELLOW YELLOW [facility] HospitalUrine Ysmoxix8563-34-22 01:39:00* Test Item Value Reference Range Interpretation Comments Urine Clarity (test code = 85484-6) CLEAR CLEAR [facility] HospitalUrine Specific Rgzeeqp0927-70-85 01:39:00 * Test Item Value Reference Range Interpretation Comments Urine Specific [place] (test code = 5811-5) 1.015 1.010-1.02 5 [facility] HospitalUrine [id number] 01:39:00* Test Item Value Reference Range Interpretation Comments Urine pH (test code = 05432-2) 6 5-7 [facility] HospitalUrine Leukocyte Hrneuvae9530-07-70 01:39:00* Test Item Value Reference Range Interpretation Comments Urine Leukocyte Esterase (test code = 5799-2) TRACE NEGATIVE H [facility] Vmssztm0528-98-05 01:39:00* Test Item Value Reference Range Interpretation Comments Urine Nitrite (test code = 44937-0) NEGATIVE NEGATIVE [facility] HospitalUrine Lcmtbpu3017-13-05 01:39:00* Test Item Value Reference Range Interpretation Comments Urine Protein (test code = 5804-0) NEGATIVE NEGATIVE [facility] Glucose (UA)2017-11-16 01:39:00* Test Item Value Reference Range Interpretation Comments Urine Glucose (UA) (test code = 2349-9) NEGATIVE NEGATIVE [facility] Ntwtrsw3374-27-47 01:39:00* Test Item Value Reference Range Interpretation Comments Urine Ketones (test code = 21479-8) TRACE NEGATIVE H [facility] Abhbmceffkfo8416-25-03 01:39:00* Test Item Value Reference Range Interpretation Comments Urine Urobilinogen (test code = 51838-2) 0.2 0.2-1 [facility] Oblpkhtny9872-47-26 01:39:00* Test Item Value Reference Range Interpretation Comments Urine Bilirubin (test code = 1978-6) NEGATIVE NEGATIVE [facility] Livpi9068-36-63 01:39:00* Test Item Value Reference Range Interpretation Comments Urine Blood (test code = 66135-2) NEGATIVE NEGATIVE [facility] LBL4631-25-76 01:39:00* Test Item Value Reference Range Interpretation Comments Urine WBC (test code = 5821-4) 11-20 0-5 H [facility] VTV6061-87-92 01:39:00* Test Item Value Reference Range Interpretation Comments Urine RBC (test code = 46829-5) 0-5 0-5 [facility] HospitalUrine Rlwpcuzg3214-75-77 01:39:00* Test Item Value Reference Range Interpretation Comments Urine Bacteria (test code = 15627-9) FEW NONE [facility] HospitalUrine Epithelial Ssgza1096-95-60 01:39:00 * Test Item Value Reference Range Interpretation Comments Urine Epithelial Cells (test code = 73817-0) FEW NONE [facility] HospitalUrine Hyaline Empqr6853-48-96 01:39:00* Test Item Value Reference Range Interpretation Comments Urine Hyaline Casts (test code = 88739-8) 11-15 0-1 H [facility] HospitalCT ABDOMEN/PELVIS Y8424-25-69 00:37:00 [facility] [address] [place] [address] Patient Name: MANJU PEARSON MR #: [id number] : 1945 Age/Sex: 71/F Req #: [id number] Adm Physicia n: Ordered by: ASHLEY NAM MD Report #: [id number] Location: ER Room/Bed: Procedure: CT/CT ABDOMEN/PELVIS W [...] on 11/16/1743 COPY TO: ASHLEY NAM MD Sodium Mbidx0698-25-30 23:27:00* Test Item Value Reference Range Interpretation Comments Sodium Level (test code = 2951-2) 141 136-145 [facility] HospitalPotassium Wpxod9268-77-74 23:27:00* Test Item Value Reference Range Interpretation Comments Potassium Level (test code = 2823-3) 3.9 3.5-5.1 [facility] HospitalChloride Kvany6551-18-65 23:27:00* Test Item Value Reference Range Interpretation Comments Chloride Level (test code = 2075-0) 105 98-107 [facility] HospitalCarbon Dioxide Epfbt3992-76-59 23:27:00* Test Item Value Reference Range Interpretation Comments Carbon Dioxide Level (test code = 2028-9) 25 22-29 [facility] HospitalAnion Nno1293-71-75 23:27:00* Test Item Value Reference Range Interpretation Comments Anion Gap (test code = 34601-0) 14.9 8-16 [facility] HospitalBlood Urea Esnqksvm8605-54-98 23:27:00* Test Item Value Reference Range Interpretation Comments Blood Urea Nitrogen (test code = 3094-0) 21 7-26 [facility] HospitalCreatinine2018-09-01 23:27:00* Test Item Value Reference Range Interpretation Comments Creatinine (test code = 2160-0) 0.93 0.57-1.11 [facility] HospitalBUN/Creatinine Ibuqo0836-62-24 23:27:00* Test Item Value Reference Range Interpretation Comments BUN/Creatinine Ratio (test code = 3097-3) 23 6-25 [facility] HospitalEstimat Glomerular Filtration Rate 2017-11-15 23:27:00* Test Item Value Reference Range Interpretation Comments Estimat Glomerular Filtration Rate (test code = 40485-4) 60 >60 Ranges were taken from the National Kidney Disease Education Program and the [facility] [employer] literature.Reference ranges:60 or greater: Echbyt82-46 ( for 3 consecutive months): Chronic kidney disease 15 or less: Kidney failureMemorial Hermann Greater Heights HospitalGlucose Xeeoa3720-07-67 23:27:00* Test Item Value Reference Range Interpretation Comments Glucose Level (test code = HEI0517) 112 74-118 [facility] HospitalCalcium Erfyb8226-96-23 23:27:00* Test Item Value Reference Range Interpretation Comments Calcium Level (test code = 77212-1) 10.0 8.4-10.2 [facility] HospitalTotal Menixbefd2575-53-78 23:27:00* Test Item Value Reference Range Interpretation Comments Total Bilirubin (test code = 1975-2) 0.4 0.2-1.2 [facility] HospitalAspartate Amino Transf (AST/SGOT) 2017-11-15 23:27:00* Test Item Value Reference Range Interpretation Comments Aspartate Amino Transf (AST/SGOT) (test code = Aspartate Amino Transf (AST/SGOT)) 12 5-34 [facility] HospitalAlanine Aminotransferase (ALT/SGPT) 2017-11-15 23:27:00* Test Item Value Reference Range Interpretation Comments Alanine Aminotransferase (ALT/SGPT) (test code = 1742-6) -6 0-55 [facility] HospitalTotal Anjvkkm0427-46-84 23:27:00* Test Item Value Reference Range Interpretation Comments Total Protein (test code = 2885-2) 7.2 6.5-8.1 [facility] HospitalAlbumin2018-09-01 23:27:00* Test Item Value Reference Range Interpretation Comments Albumin (test code = 1751-7) 4.2 3.5-5.0 [facility] HospitalGlobulin2018-09-01 23:27:00* Test Item Value Reference Range Interpretation Comments Globulin (test code = 50132-5) 3.0 2.3-3.5 [facility] HospitalAlbumin/Globulin Kvimb0865-90-75 23:27:00 * Test Item Value Reference Range Interpretation Comments Albumin/Globulin Ratio (test code = 1759-0) 1.4 0.8-2.0 [facility] HospitalAlkaline Fhfynqkoswc0044-55-15 23:27:00* Test Item Value Reference Range Interpretation Comments Alkaline Phosphatase (test code = 6768-6) 107 40-150 [facility] HospitalAmylase Nboku6002-35-09 23:27:00* Test Item Value Reference Range Interpretation Comments Amylase Level (test code = 1798-8) 81 25-125 [facility] HospitalLipase2018-09-01 23:27:00* Test Item Value Reference Range Interpretation Comments Lipase (test code = 3040-3) 64 8-78 [facility] HospitalWhite Blood Acgvb1612-12-42 23:13:00* Test Item Value Reference Range Interpretation Comments White Blood Count (test code = 6690-2) 9.47 4.8-10.8 [facility] HospitalRed Blood Wjuis1589-21-93 23:13:00* Test Item Value Reference Range Interpretation Comments Red Blood Count (test code = 789-8) 4.87 3.6-5.1 [facility] HospitalHemoglobin2018-09-01 23:13:00* Test Item Value Reference Range Interpretation Comments Hemoglobin (test code = 82476-8) 14.7 12.0-16.0 [facility] HospitalHematocrit2018-09-01 23:13:00* Test Item Value Reference Range Interpretation Comments Hematocrit (test code = 4544-3) 44.6 34.2-44.1 H [facility] HospitalMean Corpuscular Ahxnew2162-18-20 23:13:00* Test Item Value Reference Range Interpretation Comments Mean Corpuscular Volume (test code = 787-2) 91.6 81-99 [facility] HospitalMean Corpuscular Yhbzgvzuqa8567-15-18 23:13:00* Test Item Value Reference Range Interpretation Comments Mean Corpuscular Hemoglobin (test code = 785-6) 30.2 28-32 [facility] HospitalMean Corpuscular Hemoglobin Concent 2017-11-15 23:13:00* Test Item Value Reference Range Interpretation Comments Mean Corpuscular Hemoglobin Concent (test code = 786-4) 33.0 31-35 [facility] HospitalRed Cell Distribution Ifbae9785-35-03 23:13:00* Test Item Value Reference Range Interpretation Comments Red Cell Distribution Width (test code = 09194-8) 13.1 11.7 -14.4 [facility] HospitalPlatelet Pkdpc3033-59-68 23:13:00* Test Item Value Reference Range Interpretation Comments Platelet Count (test code = 777-3) 292 140-360 [facility] HospitalNeutrophils (%) (Auto)2017-11-15 23:13:00 * Test Item Value Reference Range Interpretation Comments Neutrophils (%) (Auto) (test code = 83028-8) 73.6 38.7-80.0 [facility] HospitalLymphocytes (%) (Auto)2017-11-15 23:13:00 * Test Item Value Reference Range Interpretation Comments Lymphocytes (%) (Auto) (test code = 736-9) 18.5 18.0-39.1 [facility] HospitalMonocytes (%) (Auto)2017-11-15 23:13:00* Test Item Value Reference Range Interpretation Comments Monocytes (%) (Auto) (test code = 5905-5) 5.7 4.4-11.3 [facility] HospitalEosinophils (%) (Auto)2017-11-15 23:13:00 * Test Item Value Reference Range Interpretation Comments Eosinophils (%) (Auto) (test code = 713-8) 1.3 0.0-6.0 [facility] HospitalBasophils (%) (Auto)2017-11-15 23:13:00* Test Item Value Reference Range Interpretation Comments Basophils (%) (Auto) (test code = 706-2) 0.7 0.0-1.0 [facility] HospitalIM GRANULOCYTES %2017-11-15 23:13:00* Test Item Value Reference Range Interpretation Comments IM GRANULOCYTES % (test code = IM GRANULOCYTES %) 0.2 0.0- 1.0 [facility] HospitalNeutrophils # (Auto)2017-11-15 23:13:00* Test Item Value Reference Range Interpretation Comments Neutrophils # (Auto) (test code = 751-8) 7.0 2.1-6.9 H [facility] HospitalLymphocytes # (Auto)2017-11-15 23:13:00* Test Item Value Reference Range Interpretation Comments Lymphocytes # (Auto) (test code = 15998-3) 1.8 1.0-3.2 [facility] HospitalMonocytes # (Auto)2017-11-15 23:13:00* Test Item Value Reference Range Interpretation Comments Monocytes # (Auto) (test code = 742-7) 0.5 0.2-0.8 [facility] HospitalEosinophils # (Auto)2017-11-15 23:13:00* Test Item Value Reference Range Interpretation Comments Eosinophils # (Auto) (test code = 711-2) 0.1 0.0-0.4 [facility] HospitalBasophils # (Auto)2017-11-15 23:13:00* Test Item Value Reference Range Interpretation Comments Basophils # (Auto) (test code = 704-7) 0.1 0.0-0.1 [facility] HospitalAbsolute Immature Granulocyte (auto 2017-11-15 23:13:00* Test Item Value Reference Range Interpretation Comments Absolute Immature Granulocyte (auto (el t code = Absolute Immature Granulocyte (auto) 0.02 0-0.1 [facility]
== END 2020-01-29 09:55 | disposition home or self-care (01) ==
LOC: ER 09:15
DX: M79.631 Pain in right forearm (principal); G20 Parkinson's disease
CPT/HCPCS: 99282

== ENCOUNTER 2020-10-20 16:40 | Emergency (ER) | payer MEDICARE ==
[~2020-10-20] VITALS: Ht 315 cm; Wt 46.3 kg
== END 2020-10-20 19:20 | disposition short-term general hospital (02) ==
LOC: ER 18:02
DX: Z53.21 Procedure and treatment not carried out due to patient leaving prior to being seen by health care provider (principal)

== ENCOUNTER 2021-04-02 17:32 | Emergency (ER) | payer MEDICARE ==
[~2021-04-02] VITALS: Ht 315 cm; Wt 46.3 kg
[2021-04-02] MEDS ORDERED: ONDANSETRON HCL INJ 2MG/ML 2ML 2 MG/ML VIAL IV STA (18:41)
[2021-04-02] MEDS ORDERED: Morphine 2mg Syringe 2 MG/ML SYR IV ONE (18:45)
[2021-04-02 18:55] LABS: BASOPHILS # (AUTO) 0.1 (0.0-0.1); BASOPHILS % 0.9 % (0.0-1.0); EOSINOPHILS # (AUTO) 0.1 (0.0-0.4); HEMATOCRIT 42.5 % (34.2-44.1); HEMOGLOBIN 13.6 g/dL (12.0-16.0); LYMPHOCYTES # (AUTO) 1.4 (1.0-3.2); LYMPHOCYTES % 15.5 % (18.0-39.1); MEAN CORPUSCULAR HEMOGLOBIN 29.9 pg (28-32); MEAN CORPUSCULAR VOLUME 93.4 fL (81-99); MONOCYTES # (AUTO) 0.5 (0.2-0.8); MONOCYTES % 5.1 % (4.4-11.3); PLATELET COUNT 295 x10e3/uL (140-360); RED BLOOD COUNT 4.55 x10e6/uL (3.6-5.1); RED CELL DISTRIBUTION WIDTH 13.4 % (11.7-14.4)
[2021-04-02 19:06] LABS: AMYLASE 71 U/L (25-125)
[2021-04-02 19:14] LABS: ALBUMIN/GLOBULIN RATIO 1.6 (0.8-2.0); ALKALINE PHOSPHATASE 87 IU/L (40-150); ANION GAP 10.7 mmol/L (8-16); BLOOD UREA NITROGEN 20 mg/dL (7-26); BUN/CREATININE RATIO 23 (6-25); CALCIUM 8.9 mg/dL (8.4-10.2); CARBON DIOXIDE 25 mmol/L (22-29); CHLORIDE 107 mmol/L (98-107); CREATININE, SERUM 0.86 mg/dL (0.57-1.11); EST GLOMERULAR FILTRATION RATE 65 ML/MIN (60-); GLUCOSE 114 mg/dL (74-118); POTASSIUM 3.7 mmol/L (3.5-5.1); SODIUM 139 mmol/L (136-145)
[2021-04-02 19:17] LABS: ALANINE AMINOTRANSFERASE < 6 IU/L (0-55)
[2021-04-02 19:21] LABS: LIPASE 12 U/L (8-78)
[2021-04-02 19:27] LABS: CLARITY,URINE SL CLOUDY (CLEAR); COLOR,URINE STRAW (YELLOW); KETONES,URINE 1+ (NEGATIVE); LEUKOCYTE ESTERASE ,URINE SMALL (NEGATIVE); NITRITE,URINE NEGATIVE (NEGATIVE); PROTEIN,URINE DIPSTICK 1+ (NEGATIVE); URINE UROBILINOGEN 0.2 mg/dL (0.2 - 1)
[2021-04-02 19:34] LABS: BACTERIA,URINE MODERATE /HPF; EPITHELIAL CELLS,URINE MANY /LPF
[2021-04-02] MEDS ORDERED: IOPAMIDOL 370 MG/ML 200 ML INFUS..BTL INJ ONE (19:37)
[2021-04-02] MEDS ORDERED: SODIUM CHLORIDE 0.9% 50ML 50 ML ONE (19:37)
[2021-04-02] MEDS ORDERED: CEFDINIR300 MG PO (20:00)
[2021-04-02] MEDS ORDERED: CEFDINIR 300 MG CAP PO ONE (20:00)
[2021-04-02 20:32] VITALS: BP 172/65
== END 2021-04-02 20:27 | disposition home or self-care (01) ==
LOC: ER 18:41
DX: R10.30 Lower abdominal pain, unspecified (principal); N39.0 Urinary tract infection, site not specified; R19.7 Diarrhea, unspecified; G20 Parkinson's disease
CPT/HCPCS: 36415; 74177; 80053; 81001; 82150; 83690; 85025; 87086; 99284; J2270; J2405; Q9967

== ENCOUNTER 2021-05-22 15:47 | Inpatient (IN) | payer MEDICARE ==
[~2021-05-22] VITALS: Ht 162.6 cm; Wt 46.3 kg
[2021-05-22] MEDS ORDERED: SODIUM CHLORIDE 0.9% 1000ML 1,000 ML IV STA (16:13)
[2021-05-22] MEDS ORDERED: SODIUM CHLORIDE 0.9% 1000ML 1,000 ML ONE (16:19)
[2021-05-22 16:35] LABS: BASOPHILS # (AUTO) 0.1 (0.0-0.1); BASOPHILS % 1.2 % (0.0-1.0); EOSINOPHILS # (AUTO) 0.2 (0.0-0.4); EOSINOPHILS % 2.9 % (0.0-6.0); HEMATOCRIT 41.8 % (34.2-44.1); HEMOGLOBIN 13.9 g/dL (12.0-16.0); LYMPHOCYTES # (AUTO) 1.5 (1.0-3.2); LYMPHOCYTES % 21.5 % (18.0-39.1); MEAN CORPUSCULAR HEMOGLOBIN 30.5 pg (28-32); MEAN CORPUSCULAR HGB CONC 33.3 g/dL (31-35); MEAN CORPUSCULAR VOLUME 91.9 fL (81-99); MONOCYTES # (AUTO) 0.5 (0.2-0.8); MONOCYTES % 7.1 % (4.4-11.3); NEUTROPHILS # (AUTO) 4.6 (2.1-6.9); NEUTROPHILS % 66.9 % (38.7-80.0); PLATELET COUNT 241 x10e3/uL (140-360); RED BLOOD COUNT 4.55 x10e6/uL (3.6-5.1); RED CELL DISTRIBUTION WIDTH 13.8 % (11.7-14.4)
[2021-05-22 16:39] LABS: CLARITY,URINE SL CLOUDY (CLEAR); COLOR,URINE YELLOW (YELLOW)
[2021-05-22 16:40] LABS: KETONES,URINE NEGATIVE (NEGATIVE); LEUKOCYTE ESTERASE ,URINE NEGATIVE (NEGATIVE); NITRITE,URINE NEGATIVE (NEGATIVE); PROTEIN,URINE DIPSTICK NEGATIVE (NEGATIVE); URINE UROBILINOGEN 0.2 mg/dL (0.2 - 1)
[2021-05-22 16:44] LABS: AMORPHOUS SEDIMENT,URINE MODERATE (FEW); BACTERIA,URINE FEW /HPF
[2021-05-22 16:45] LABS: INR 0.99
[2021-05-22 16:46] LABS: PARTIAL THROMBOPLASTIN TIME 25.1 seconds (23.8-35.5)
[2021-05-22 16:54] LABS: ALBUMIN 3.8 g/dL (3.5-5.0); ALBUMIN/GLOBULIN RATIO 1.5 (0.8-2.0); ALKALINE PHOSPHATASE 74 IU/L (40-150); ANION GAP 11.4 mmol/L (8-16); BLOOD UREA NITROGEN 21 mg/dL (7-26); BUN/CREATININE RATIO 26 (6-25); CALCIUM 9.2 mg/dL (8.4-10.2); CARBON DIOXIDE 25 mmol/L (22-29); CHLORIDE 107 mmol/L (98-107); CREATINE KINASE 62 IU/L (29-168); EST GLOMERULAR FILTRATION RATE 70 ML/MIN (60-); GLUCOSE 98 mg/dL (74-118); POTASSIUM 3.4 mmol/L (3.5-5.1); SODIUM 140 mmol/L (136-145)
[2021-05-22 16:56] LABS: ALANINE AMINOTRANSFERASE < 6 IU/L (0-55)
[2021-05-22 17:14] LABS: THYROID STIMULATING HORMONE 0.988 uIU/mL (0.350-4.940)
[2021-05-22 17:33] LABS: STREPTOCOCCUS GRP A ANTIGEN NEGATIVE (NEGATIVE)
[2021-05-22] MEDS: SODIUM CHLORIDE 0.9% 1000ML 1,000 ML IV SCH (19:11)
[2021-05-22 21:00] VITALS: BP 183/97
[2021-05-22 21:53] VITALS: BP 183/97
[2021-05-23] VITALS (8 sets, daily range): BP systolic 118–188; BP diastolic 68–99
[2021-05-23] MEDS: SODIUM CHLORIDE 0.9% 1000ML 1,000 ML IV SCH (05:49)
[2021-05-23] MEDS ORDERED: HYDRALAZINE HCL 20 MG/ML VIAL IV PRN ×2 (08:30→09:45)
[2021-05-23] MEDS: AMLODIPINE BESYLATE 5 MG TAB PO SCH (10:20)
[2021-05-23] MEDS: CEFTRIAXONE 2 GM in SODIUM CHLORIDE 0.9% 100 ML IV SCH (11:38)
[2021-05-23] MEDS: RYTARY PO SCH ×2 (12:00→18:00)
[2021-05-24] VITALS (8 sets, daily range): BP systolic 138–163; BP diastolic 74–90
[2021-05-24 03:20] LABS: BASOPHILS # (AUTO) 0.1 (0.0-0.1); BASOPHILS % 0.6 % (0.0-1.0); EOSINOPHILS % 0.1 % (0.0-6.0); HEMATOCRIT 41.4 % (34.2-44.1); HEMOGLOBIN 13.7 g/dL (12.0-16.0); LYMPHOCYTES # (AUTO) 1.2 (1.0-3.2); LYMPHOCYTES % 9.5 % (18.0-39.1); MEAN CORPUSCULAR HEMOGLOBIN 30.4 pg (28-32); MEAN CORPUSCULAR HGB CONC 33.1 g/dL (31-35); MEAN CORPUSCULAR VOLUME 91.8 fL (81-99); MONOCYTES # (AUTO) 0.6 (0.2-0.8); MONOCYTES % 4.8 % (4.4-11.3); NEUTROPHILS # (AUTO) 10.8 (2.1-6.9); NEUTROPHILS % 84.7 % (38.7-80.0); PLATELET COUNT 245 x10e3/uL (140-360); RED BLOOD COUNT 4.51 x10e6/uL (3.6-5.1); RED CELL DISTRIBUTION WIDTH 14.3 % (11.7-14.4)
[2021-05-24 03:55] LABS: ALBUMIN 3.5 g/dL (3.5-5.0); ALBUMIN/GLOBULIN RATIO 1.3 (0.8-2.0); ANION GAP 13.9 mmol/L (8-16); CALCIUM 9.1 mg/dL (8.4-10.2); CREATININE, SERUM 0.79 mg/dL (0.57-1.11); POTASSIUM 3.9 mmol/L (3.5-5.1)
[2021-05-24 04:07] LABS: CREATINE KINASE MB 1.1 ng/mL (0-5.0)
[2021-05-24] MEDS: RYTARY PO SCH ×6 (06:00→23:57)
[2021-05-24] MEDS: AMLODIPINE BESYLATE 5 MG TAB PO SCH (09:00)
[2021-05-24 10:10] LABS: CREATINE KINASE MB 1.1 ng/mL (0-5.0)
[2021-05-24] MEDS: CEFTRIAXONE 2 GM in SODIUM CHLORIDE 0.9% 100 ML IV SCH (12:56)
[2021-05-25 00:45] VITALS: BP 138/77
[2021-05-25 05:08] VITALS: BP 140/82
[2021-05-25] MEDS: RYTARY PO SCH (05:30)
[2021-05-25 05:32] LABS: BASOPHILS # (AUTO) 0.1 (0.0-0.1); BASOPHILS % 0.5 % (0.0-1.0); EOSINOPHILS % 0.1 % (0.0-6.0); HEMATOCRIT 36.9 % (34.2-44.1); HEMOGLOBIN 12.1 g/dL (12.0-16.0); LYMPHOCYTES # (AUTO) 1.3 (1.0-3.2); LYMPHOCYTES % 10.1 % (18.0-39.1); MEAN CORPUSCULAR HEMOGLOBIN 30.4 pg (28-32); MEAN CORPUSCULAR HGB CONC 32.8 g/dL (31-35); MEAN CORPUSCULAR VOLUME 92.7 fL (81-99); MONOCYTES # (AUTO) 0.8 (0.2-0.8); MONOCYTES % 6.5 % (4.4-11.3); NEUTROPHILS # (AUTO) 10.7 (2.1-6.9); NEUTROPHILS % 82.5 % (38.7-80.0); PLATELET COUNT 203 x10e3/uL (140-360); RED BLOOD COUNT 3.98 x10e6/uL (3.6-5.1); RED CELL DISTRIBUTION WIDTH 14.2 % (11.7-14.4)
[2021-05-25 05:44] LABS: ANION GAP 11.4 mmol/L (8-16); CALCIUM 8.9 mg/dL (8.4-10.2); CREATININE, SERUM 0.77 mg/dL (0.57-1.11); POTASSIUM 3.4 mmol/L (3.5-5.1)
[2021-05-25 07:55] VITALS: BP 142/74
[2021-05-25] MEDS: CEFTRIAXONE 2 GM in SODIUM CHLORIDE 0.9% 100 ML IV SCH (08:58)
[2021-05-25] MEDS: AMLODIPINE BESYLATE 5 MG TAB PO SCH (08:58)
[2021-05-25] MEDS ORDERED: AZITHROMYCIN 250 MG TAB PO SCH (09:00)
[2021-05-25 09:05] VITALS: BP 131/75
[2021-05-25] MEDS ORDERED: POTASSIUM CHLORIDE 20 MEQ TAB CR PO ONE (09:30)
[2021-05-25] MEDS ORDERED: CEFDINIR300 MG PO (09:35)
[2021-05-25] MEDS ORDERED: ZITHROMAX500 MG PO (09:35)
== END 2021-05-25 10:40 | disposition home or self-care (01) | DRG 194 ==
LOC: ER 15:49 → ERHOLD 17:33 → MED/SURG3 20:29 → OBSVTOIN 05-23 14:42
PROVIDERS: ADMIT Internal Medicine; ATTEND Internal Medicine
DX: J18.9 Pneumonia, unspecified organism (principal); E44.0 Moderate protein-calorie malnutrition; F02.81 Dementia in other diseases classified elsewhere, unspecified severity, with behavioral disturbance; G20 Parkinson's disease; Z83.3 Family history of diabetes mellitus; Z80.9 Family history of malignant neoplasm, unspecified; R55 Syncope and collapse; R62.7 Adult failure to thrive; R13.10 Dysphagia, unspecified; R53.81 Other malaise; I10 Essential (primary) hypertension; Z20.822 Contact with and (suspected) exposure to COVID-19
CPT/HCPCS: 36415; 70450; 71045; 74230; 80048; 80053; 81001; 82550; 82553; 83518; 83735; 83880; 84443; 84484; 85025; 85610; 85730; 87070; 87086; 93005; 93306; 93880; 94799; 97139; 99251; 99284; G0378; J0360; J0456; J0696; J7030; J7050; U0002

== ENCOUNTER 2022-06-20 16:37 | Emergency (ER) | payer MEDICARE ==
[~2022-06-20] VITALS: Ht 162.6 cm; Wt 46.3 kg
[~2022-06-20 16:37] MED LIST changes: +ZITHROMAX500 MG PO
[2022-06-20 17:28] LABS: BASOPHILS # (AUTO) 0.1 (0.0-0.1); EOSINOPHILS # (AUTO) 0.2 (0.0-0.4); EOSINOPHILS % 2.6 % (0.0-6.0); HEMATOCRIT 36.3 % (34.2-44.1); HEMOGLOBIN 12.1 g/dL (12.0-16.0); MEAN CORPUSCULAR HEMOGLOBIN 30.6 pg (28-32); MEAN CORPUSCULAR HGB CONC 33.3 g/dL (31-35); MEAN CORPUSCULAR VOLUME 91.7 fL (81-99); MONOCYTES # (AUTO) 0.5 (0.2-0.8); MONOCYTES % 6.9 % (4.4-11.3); NEUTROPHILS # (AUTO) 5.6 (2.1-6.9); PLATELET COUNT 224 x10e3/uL (140-360); RED BLOOD COUNT 3.96 x10e6/uL (3.6-5.1); RED CELL DISTRIBUTION WIDTH 12.4 % (11.7-14.4)
[2022-06-20 17:48] LABS: ALANINE AMINOTRANSFERASE < 6 IU/L (0-55); ALBUMIN 3.4 g/dL (3.5-5.0); ALBUMIN/GLOBULIN RATIO 1.5 (0.8-2.0); ALKALINE PHOSPHATASE 60 IU/L (40-150); ANION GAP 11.5 mmol/L (8-16); BLOOD UREA NITROGEN 21 mg/dL (7-26); BUN/CREATININE RATIO 23 (6-25); CALCIUM 9.2 mg/dL (8.4-10.2); CARBON DIOXIDE 27 mmol/L (22-29); CHLORIDE 104 mmol/L (98-107); CREATININE, SERUM 0.92 mg/dL (0.57-1.11); GLUCOSE 88 mg/dL (74-118); POTASSIUM 3.5 mmol/L (3.5-5.1); SODIUM 139 mmol/L (136-145)
[2022-06-20 18:17] LABS: CLARITY,URINE SL CLOUDY (CLEAR); COLOR,URINE AMBER (YELLOW); KETONES,URINE TRACE (NEGATIVE); LEUKOCYTE ESTERASE ,URINE NEGATIVE (NEGATIVE); NITRITE,URINE NEGATIVE (NEGATIVE); PROTEIN,URINE DIPSTICK NEGATIVE (NEGATIVE); URINE UROBILINOGEN 0.2 mg/dL (0.2 - 1)
[2022-06-20 18:26] LABS: AMORPHOUS SEDIMENT,URINE MODERATE (FEW); BACTERIA,URINE FEW /HPF; WBC,URINE (MAN) 0-5 /HPF (0-5)
[2022-06-20 19:02] VITALS: BP 149/89
== END 2022-06-20 19:00 | disposition home or self-care (01) ==
LOC: ER 16:43
DX: S00.83XA Contusion of other part of head, initial encounter (principal); W01.198A Fall on same level from slipping, tripping and stumbling with subsequent striking against other object, initial encounter; Y93.01 Activity, walking, marching and hiking; Y92.89 Other specified places as the place of occurrence of the external cause; G20 Parkinson's disease; R94.31 Abnormal electrocardiogram [ECG] [EKG]
CPT/HCPCS: 36415; 70450; 71045; 72125; 72170; 80053; 81001; 84484; 85025; 93005; 99283

== ENCOUNTER 2022-09-05 12:48 | Emergency (ER) | payer MEDICARE ==
[~2022-09-05] VITALS: Ht 315 cm; Wt 46.3 kg
[~2022-09-05 12:48] MED LIST changes: +CEPHALEXIN250 MG/5 M PO; +KEFLEX125 MG/5 M PO
[2022-09-05] MEDS ORDERED: SODIUM CHLORIDE 0.9% 1000ML 1,000 ML IV STA (13:15)
[2022-09-05 13:31] LABS: BASOPHILS # (AUTO) 0.1 (0.0-0.1); BASOPHILS % 0.5 % (0.0-1.0); EOSINOPHILS # (AUTO) 0.1 (0.0-0.4); EOSINOPHILS % 1.3 % (0.0-6.0); HEMATOCRIT 33.4 % (34.2-44.1); HEMOGLOBIN 11.3 g/dL (12.0-16.0); LYMPHOCYTES # (AUTO) 1.3 (1.0-3.2); LYMPHOCYTES % 14.4 % (18.0-39.1); MEAN CORPUSCULAR HEMOGLOBIN 29.9 pg (28-32); MEAN CORPUSCULAR HGB CONC 33.8 g/dL (31-35); MEAN CORPUSCULAR VOLUME 88.4 fL (81-99); MONOCYTES # (AUTO) 0.6 (0.2-0.8); MONOCYTES % 6.2 % (4.4-11.3); NEUTROPHILS % 76.8 % (38.7-80.0); PLATELET COUNT 298 x10e3/uL (140-360); RED BLOOD COUNT 3.78 x10e6/uL (3.6-5.1)
[2022-09-05 13:38] LABS: CLARITY,URINE CLEAR (CLEAR); COLOR,URINE YELLOW (YELLOW); INR 1.1; KETONES,URINE NEGATIVE (NEGATIVE); LEUKOCYTE ESTERASE ,URINE NEGATIVE (NEGATIVE); NITRITE,URINE NEGATIVE (NEGATIVE); PROTEIN,URINE DIPSTICK NEGATIVE (NEGATIVE); PROTHROMBIN TIME 14.7 seconds (11.9-14.5); URINE UROBILINOGEN 0.2 mg/dL (0.2 - 1)
[2022-09-05 13:39] LABS: PARTIAL THROMBOPLASTIN TIME 24.9 seconds (23.8-35.5)
[2022-09-05 13:47] LABS: ALBUMIN 2.6 g/dL (3.5-5.0); ALBUMIN/GLOBULIN RATIO 1.1 (0.8-2.0); ALKALINE PHOSPHATASE 69 IU/L (40-150); ANION GAP 13.6 mmol/L (8-16); BLOOD UREA NITROGEN 16 mg/dL (7-26); BUN/CREATININE RATIO 22 (6-25); CALCIUM 8.1 mg/dL (8.4-10.2); CARBON DIOXIDE 25 mmol/L (22-29); CHLORIDE 103 mmol/L (98-107); CREATINE KINASE 52 IU/L (29-168); CREATININE, SERUM 0.74 mg/dL (0.57-1.11); GLUCOSE 122 mg/dL (74-118); MAGNESIUM 1.7 MG/DL (1.3-2.1); POTASSIUM 3.6 mmol/L (3.5-5.1); SODIUM 138 mmol/L (136-145)
[2022-09-05 13:48] LABS: ALANINE AMINOTRANSFERASE < 6 IU/L (0-55)
[2022-09-05 13:52] LABS: WBC,URINE (MAN) 0-5 /HPF (0-5)
[2022-09-05 13:53] LABS: BACTERIA,URINE MODERATE /HPF; EPITHELIAL CELLS,URINE RARE /LPF; RENAL EPITHELIAL CELLS,URINE RARE
[2022-09-05 16:25] VITALS: O2SAT 99
== END 2022-09-05 17:35 | disposition home or self-care (01) ==
LOC: ER 13:17
DX: L89.219 Pressure ulcer of right hip, unspecified stage (principal); G20 Parkinson's disease; W19.XXXA Unspecified fall, initial encounter; I10 Essential (primary) hypertension; Z91.81 History of falling
CPT/HCPCS: 36415; 70450; 72125; 74176; 80053; 81001; 82550; 83735; 83880; 84484; 85025; 85610; 85730; 87040; 87086; 87186; 93005; 99284; C9113; J7030